=== PATIENT | female | born 1980 | race Caucasian/White ===

== ENCOUNTER 2017-02-13 13:52 | Emergency (ER) | payer BC ==
[2017-02-13] MEDS ORDERED: Ketorolac 60 MG/2 ML SDV IM ONE (14:34)
[2017-02-13] MEDS ORDERED: Gabapentin 300 MG Cap PO ONE (14:34)
[2017-02-13] MEDS ORDERED: fentaNYL 100 MCG/2 ML SDV IVPUSH ONE (16:17)
--- NOTE | 2017-02-13 16:23 | EDM.PDOC ---
ED HPI GENERAL MEDICAL PROBLEM - General Chief Complaint: Lower Extremity Injury/Pain Stated Complaint: LEFT HIP PAIN Time Seen by Provider: 02/13/17 14:30 Source of Information: Reports: Patient History Limitations: Reports: No Limitations - History of Present Illness INITIAL COMMENTS - FREE TEXT/NARRATIVE: History of present illness: [36-year-old female comes in complaining of left hip pain. Patient indicates she has had surgery on the left hip and has had subsequent giving out of this hip causing subsequent falls and pain] Review of systems: As per history of present illness and below otherwise all systems reviewed and negative. Past medical history: As per history of present illness and as reviewed below otherwise noncontributory. Surgical history: As per history of present illness and as reviewed below otherwise noncontributory. Social history: No reported history of drug or alcohol abuse. Family history: As per history of present illness and as reviewed below otherwise noncontributory. Physical exam: HEENT: Atraumatic, normocephalic, pupils reactive, negative for conjunctival pallor or scleral icterus, mucous membranes moist, throat clear, neck supple, nontender, trachea midline. Lungs: Clear to auscultation, breath sounds equal bilaterally, chest nontender. Heart: S1S2, regular, negative for clicks, rubs, or JVD. Abdomen: Soft, nondistended, nontender. Negative for masses or hepatosplenomegaly. Negative for costovertebral tenderness. Pelvis: Stable nontender. Genitourinary: Deferred. Rectal: Deferred. Extremities: Atraumatic, negative for cords or calf pain. Neurovascular unremarkable. Neuro: Awake, alert, oriented. Cranial nerves II through XII unremarkable. Cerebellum unremarkable. Motor and sensory unremarkable throughout. Exam nonfocal. Global assessment is benign save is noted in the subjective complaint of the history of present illness Diagnostics: [] Therapeutics: [Toradol, gabapentin, fentanyl] Impression: [Chronic hip pain with laxity and instability] Plan: [Follow-up with PCP] Definitive disposition and diagnosis as appropriate pending reevaluation and review of above. Left Hip Pain Score (Numeric/FACES): 10 Right Knee Pain Score (Numeric/FACES): 3 - Related Data Allergies Allergy/AdvReac Type Severity Reaction Status Date / Time hydrocodone Allergy Hives Verified 02/13/17 14:02 morphine AdvReac Itching Verified 02/13/17 14:02 Home Meds: Home Meds Citalopram [Citalopram HBr] 40 mg PO DAILY 08/02/15 [History] metFORMIN HCl [Metformin HCl ER] 750 mg PO BID 08/02/15 [History] Citalopram Hydrobromide [Celexa] 40 mg PO DAILY 10/10/15 [History] Past Medical History HEENT History: Reports: None Cardiovascular History: Reports: None Other Cardiovascular History: states she had a "hole in heart" repaired at age 8 Respiratory History: Reports: None Gastrointestinal History: Reports: None Genitourinary History: Reports: None 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, Musculoskeletal History: Reports: Arthritis, Fracture, Gout Other Musculoskeletal History: one episode of gout in ankles at age 14, fx in bilateral feet, right wrist and left collarbone Neurological History: Reports: None Psychiatric History: Reports: Anxiety, Depression Endocrine/Metabolic History: Reports: Diabetes, Type II, Obesity/BMI 30+ Hematologic History: Reports: None Immunologic History: Reports: None Oncologic (Cancer) History: Reports: None Dermatologic History: Reports: None - Infectious Disease History Infectious Disease History: Reports: Chicken Pox - Past Surgical History Head Surgeries/Procedures: Reports: None HEENT Surgical History: Reports: None Cardiovascular Surgical History: Reports: Other (See Below) Respiratory Surgical History: Reports: None GI Surgical History: Reports: Cholecystectomy Female Surgical History: Reports: Section Neurological Surgical History: Reports: None Musculoskeletal Surgical History: Reports: Other (See Below) Oncologic Surgical History: Reports: None Dermatological Surgical History: Reports: None Social & Family History - Family History Family Medical History: Noncontributory Endocrine/Metabolic: Reports: Diabetes, type II - Tobacco Use Smoking Status *Q: Current Every Day Smoker Years of Tobacco use: 17 Packs/Tins Daily: 0.5 - Caffeine Use Caffeine Use: Reports: Soda Caffeine Use Comment: 2drinks/day - Recreational Drug Use Recreational Drug Use: No Drug Use in Last 12 Months: No Review of Systems - Review of Systems Review Of Systems: See Below (See history of present illness) ED EXAM, GENERAL - Physical Exam Exam: See Below (See history of present illness) Course - Vital Signs Last Recorded V/S: Last Vital Signs Temp 36.6 C 02/13/17 13:57 Pulse 134 H 02/13/17 13:57 Resp 20 02/13/17 13:57 BP 140/97 H 02/13/17 13:57 Pulse Ox 99 02/13/17 13:57 - Orders/Labs/Meds Meds: Medications Discontinued Medications Generic Name Dose Route Start Last Admin Trade Name Nel PRN Reason Stop Dose Admin Gabapentin 300 mg 02/13/17 14:34 02/13/17 15:25 Neurontin PO 02/13/17 14:35 300 mg ONETIME ONE Administration Ketorolac Tromethamine 60 mg 02/13/17 14:34 02/13/17 15:08 Toradol IM 02/13/17 14:35 60 mg ONETIME ONE Administration Departure - Departure Time of Disposition: 16:26 Disposition: Home, Self-Care 01 Condition: Good Clinical Impression: Hip pain Qualifiers: Laterality: left Qualified Code(s): M25.552 - Pain in left hip - Discharge Information Instructions: Hip Pain Forms: ED Department Discharge Additional Instructions: The following information is given to patients seen in the emergency department who are being discharged to home. This information is to outline your options for follow-up care. We provide all patients seen in our emergency department with a follow-up referral. The need for follow-up, as well as the timing and circumstances, are variable depending upon the specifics of your emergency department visit. If you don't have a primary care physician on staff, we will provide you with a referral. We always advise you to contact your personal physician following an emergency department visit to inform them of the circumstance of the visit and for follow-up with them and/or the need for any referrals to a consulting specialist. The emergency department will also refer you to a specialist when appropriate. This referral assures that you have the opportunity for follow-up care with a specialist. All of these measure are taken in an effort to provide you with optimal care, which includes your follow-up. Under all circumstances we always encourage you to contact your private physician who remains a resource for coordinating your care. When calling for follow-up care, please make the office aware that this follow-up is from your recent emergency room visit. If for any reason you are refused follow-up, please contact the [facility] Emergency Department at and asked to speak to the emergency department charge nurse. Follow-up with PCP Return to ED as needed as discussed
[2017-02-13 16:53] VITALS: BP 130/90
== END 2017-02-13 16:51 | disposition home or self-care (01) ==
LOC: MW.ED 13:52
DX: M25.252 Flail joint, left hip (principal); M25.352 Other instability, left hip; E11.9 Type 2 diabetes mellitus without complications; E66.9 Obesity, unspecified; F17.210 Nicotine dependence, cigarettes, uncomplicated; Z88.5 Allergy status to narcotic agent; Z79.84 Long term (current) use of oral hypoglycemic drugs
CPT/HCPCS: 96372; 99283; A9270; J1885; J3010

== ENCOUNTER 2017-03-10 03:29 | Observation (INO) | payer BC ==
[2017-03-10] MEDS ORDERED: HYDROmorphone 2 MG/ML Syringe IVPUSH ONE ×2 (03:48→06:24)
[2017-03-10] MEDS ORDERED: Sodium Chloride 0.9% 10 ML Syringe FLUSH PRN (03:48)
[2017-03-10] MEDS ORDERED: Aspirin 81 MG Tab.Chew PO ONE (03:48)
[2017-03-10] MEDS ORDERED: Sodium Chloride 0.9% 2.5 ML Syringe FLUSH PRN (03:48)
[2017-03-10] MEDS ORDERED: Sodium Chloride 0.9% 1,000 ML IV ONE (03:48)
--- NOTE | 2017-03-10 03:55 | EDM.PDOC ---
ED HPI GENERAL MEDICAL PROBLEM - General Chief Complaint: Chest Pain Stated Complaint: CHEST PAIN Time Seen by Provider: 03/10/17 03:33 - History of Present Illness INITIAL COMMENTS - FREE TEXT/NARRATIVE: HISTORY AND PHYSICAL: History of present illness: The patient is a 36-year-old female with a history of [id number] diabetes and chronic hip pain for which she has seen our orthopedics department and is scheduled for a hip replacement in April and presents tonight with left lower chest wall and left upper abdominal pain that started approximately 8 hours ago. According to the patient she has felt poorly over the last few days and has had mushy diarrhea and abdominal discomfort but no vomiting fevers or chills. According to the patient's she has had one to 2 episodes of sharp left-sided chest pain over the last 4 years each time being evaluated in the ER with EKGs and labs but never getting follow-up testing for these episodes. Initially when she presented she told nursing was left-sided chest pain it was sharp worse with deep breaths or movements and on my evaluation she is pointing more to the left upper abdomen and lower rib area. The pain does not radiate and it does not make her nauseated or vomit. The Pain has been continuous for the last 8 hours. Patient has no flank pain no urinary complaints and denies . She has had no upper respiratory issues such as cough cold runny nose fevers or chills. Patient has had a cholecystectomy in the past and has no other GI history. Patient does have a history of anxiety for which she takes medications but states she does not feel anxious now. Throughout the course of the last 8 hours she has tried both [id number] Tylenol and Motrin without relief of the discomfort. She states that when the pain started she was at rest and has been persistent and she rates it as 8/10. The patient smokes cigarettes but has no other drug history and occasionally drinks alcohol. According to her testimony her mother had cardiac disease at the age of 50 and no other nuclear family members have cardiac disease. She has no leg pain or swelling. She does not take control pills. Patient tells me that she did have heart surgery at the age of 68 years old to repair a "hole in her heart". She did not need to have all of after that. Review of systems: As per history of present illness and below otherwise all systems reviewed and negative. Past medical history: As per history of present illness and as reviewed below otherwise noncontributory. Surgical history: As per history of present illness and as reviewed below otherwise noncontributory. Social history: No reported history of drug or alcohol abuse. Family history: As per history of present illness and as reviewed below otherwise noncontributory. Physical exam: Gen.: Well-developed mildly overweight female who is nontoxic and looks uncomfortable in the room he breaths and continues to keep her left hand on her left upper abdominal area. Vital signs of the note by me including her tachycardia. HEENT: Atraumatic, normocephalic, negative for conjunctival pallor or scleral icterus, mucous membranes moist, throat clear, neck supple, nontender, trachea midline. Lungs: Clear to auscultation, breath sounds equal bilaterally, chest wall in the left lower anterior side has reproducible pain on palpation without defects or deformities. There are no palpable deformities or defects/crepitus Heart: S1S2, regular rhythm slightly tachycardic rate of my evaluation, negative for clicks, rubs, or JVD. Abdomen: Soft, nondistended, bowel sounds are normoactive and there is mild tenderness on palpation in the left upper abdominal area without rebound or guarding. Negative for masses or hepatosplenomegaly. Negative for costovertebral tenderness. Pelvis: Stable nontender. Genitourinary: Deferred. Rectal: Deferred. Extremities: Atraumatic, negative for cords or calf pain. Neurovascular unremarkable. No pedal edema or leg asymmetry Neuro: Awake, alert, oriented. Cranial nerves II through XII unremarkable. Cerebellum unremarkable. Motor and sensory unremarkable throughout. Exam nonfocal. Skin: No diaphoresis normal turgor no evidence of any rashes or lesions Diagnostics: EKG CBC CMP amylase lipase INR and d-dimer troponin chest x-ray Therapeutics: IV O2 monitor IV fluids aspirin Nitropaste Dilaudid After my initial evaluation I went back before the patient was medicated to see if she can distinguish between the pain being in her left upper abdomen versus her chest wall and is still very difficult for her to discern as it feels like it's in the entire area. We will continue with our workup and reevaluate for CT scans of the chest abdomen and pelvis. 0425: Patient states that the pain is significantly improved and now rates it as a 4/10. Her heart rate has come down to 91 and she overall looks much more comfortable. Nitro paste will be placed and she will go to CT for CT scan of the chest abdomen and pelvis. 0620: Patient continues to be comfortable but still says she has some discomfort and feels that the Dilaudid was the only thing that helped her with her pain. I will go ahead and re-dose her. I discussed all testing results with the patient and at bedside and they are agreeable to observation admission to do the rule out for cardiac and potentially get an echocardiogram and scheduled for outpatient stress test. 0635: Case was discussed with our hospitalist Dr. Chapman who is aware of care in the ER and testing results and agrees to observation admission. Impression: Episodic atypical left chest pain etiology unclear rule out ACS Definitive disposition and diagnosis as appropriate pending reevaluation and review of above. Left Chest Pain Score (Numeric/FACES): 9 - Related Data Allergies Allergy/AdvReac Type Severity Reaction Status Date / Time hydrocodone Allergy Hives Verified 03/10/17 03:34 morphine AdvReac Itching Verified 03/10/17 03:34 Home Meds: Home Meds Citalopram [Citalopram HBr] 40 mg PO DAILY 08/02/15 [History] metFORMIN HCl [Metformin HCl ER] 1,500 mg PO BID 08/02/15 [History] ALPRAZolam [Alprazolam] 0.5 mg PO ASDIRECTED PRN 03/10/17 [History] oxyCODONE HCl/Acetaminophen [Percocet 5-325 mg Tablet] 1 each PO ASDIRECTED PRN 03/10/17 [History] Past Medical History HEENT History: Reports: None Cardiovascular History: Reports: None Other Cardiovascular History: states she had a "hole in heart" repaired at age 8 Respiratory History: Reports: None Gastrointestinal History: Reports: None Genitourinary History: Reports: None [employer]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: 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, Musculoskeletal History: Reports: Arthritis, Fracture, Gout Other Musculoskeletal History: one episode of gout in ankles at age 14, fx in bilateral feet, right wrist and left collarbone Neurological History: Reports: None Psychiatric History: Reports: Anxiety, Depression Endocrine/Metabolic History: Reports: Diabetes, Type II, Obesity/BMI 30+ Hematologic History: Reports: None Immunologic History: Reports: None Oncologic (Cancer) History: Reports: None Dermatologic History: Reports: None - Infectious Disease History Infectious Disease History: Reports: Chicken Pox - Past Surgical History Head Surgeries/Procedures: Reports: None HEENT Surgical History: Reports: None Cardiovascular Surgical History: Reports: Other (See Below) Respiratory Surgical History: Reports: None GI Surgical History: Reports: Cholecystectomy Female Surgical History: Reports: Section Neurological Surgical History: Reports: None Musculoskeletal Surgical History: Reports: Other (See Below) Oncologic Surgical History: Reports: None Dermatological Surgical History: Reports: None Social & Family History - Family History Family Medical History: Noncontributory Endocrine/Metabolic: Reports: Diabetes, type II - Tobacco Use Smoking Status *Q: Current Every Day Smoker Years of Tobacco use: 22 Packs/Tins Daily: 1 - Caffeine Use Caffeine Use: Reports: Soda Caffeine Use Comment: 2drinks/day - Recreational Drug Use Recreational Drug Use: No Drug Use in Last 12 Months: No ED ROS GENERAL - Review of Systems Review Of Systems: ROS reveals no pertinent complaints other than HPI. ED EXAM, GENERAL - Physical Exam Exam: See Below (See dictation) Course - Vital Signs Last Recorded V/S: Last Vital Signs Temp 35.7 C 03/10/17 03:30 Pulse 102 H 03/10/17 06:21 Resp 14 03/10/17 06:21 BP 151/93 H 03/10/17 06:21 Pulse Ox 98 03/10/17 06:21 - Orders/Labs/Meds Orders: Active Orders 24 hr Category Date Time Status Cardiac Monitoring [RC] . DIRECTED Care 03/10/17 03:47 Active EKG Documentation Completion [RC] STAT Care 03/10/17 03:47 Active Oxygen Therapy, ED [RC] ASDIRECTED Care 03/10/17 03:47 Active Pulse Oximetry [RC] ASDIRECTED Care 03/10/17 03:47 Active Abdomen Pelvis w Cont [CT] Stat Exams 03/10/17 04:24 Taken Ang Chest [CT] Stat Exams 03/10/17 04:24 Taken Chest 1V Frontal [CR] Stat Exams 03/10/17 03:48 Taken Sodium Chloride 0.9% [Saline Flush] Med 03/10/17 03:48 Active 10 ml FLUSH ASDIRECTED PRN Sodium Chloride 0.9% [Saline Flush] Med 03/10/17 03:48 Active 2.5 ml FLUSH ASDIRECTED PRN Saline Lock Insert [OM.PC] Stat Oth 03/10/17 03:47 Ordered Medication Orders Sodium Chloride (Saline Flush) 10 ml FLUSH ASDIRECTED PRN PRN Reason: Keep Vein Open Last Admin: 03/10/17 06:36 Dose: 10 ml Sodium Chloride (Saline Flush) 2.5 ml FLUSH ASDIRECTED PRN PRN Reason: Keep Vein Open Last Admin: 03/10/17 06:35 Dose: 2.5 ml Labs: Laboratory Tests 03/10/17 03/10/17 03/10/17 Range/Units 03:51 03:51 03:51 WBC 12.85 H (4.0-11.0) K/uL RBC 4.35 (4.30-5.90) M/uL Hgb 13.9 (12.0-16.0) g/dL Hct 40.7 (36.0-46.0) % MCV 93.6 (80.0-98.0) fL MCH 32.0 (27.0-32.0) pg MCHC 34.2 (31.0-37.0) g/dL RDW Std Deviation 45.8 (28.0-62.0) fl RDW Coeff of Mirlande 14 (11.0-15.0) % Plt Count 386 (150-400) K/uL MPV 8.20 (7.40-12.00) fL Neut % (Auto) 44.8 L (48.0-80.0) % Lymph % (Auto) 46.2 H (16.0-40.0) % Barrow % (Auto) 5.7 (0.0-15.0) % Eos % (Auto) 3.1 (0.0-7.0) % Baso % (Auto) 0.2 (0.0-1.5) % Neut # (Auto) 5.8 H (1.4-5.7) K/uL Lymph # (Auto) 5.9 H (0.6-2.4) K/uL Barrow # (Auto) 0.7 (0.0-0.8) K/uL Eos # (Auto) 0.4 (0.0-0.7) K/uL Baso # (Auto) 0.0 (0.0-0.1) K/uL Nucleated RBC % 0.0 /100WBC Nucleated RBCs # 0 K/uL INR 1.00 (0.86-1.11) D-Dimer, Quantitative (0.0-0.52) mg/LFEU Sodium 140 (136-146) mmol/L Potassium 3.7 (3.5-5.1) mmol/L Chloride 105 (98-110) mmol/L Carbon Dioxide 24 (21-31) mmol/L BUN 6 (6.0-23.0) mg/dL Creatinine 0.7 (0.6-1.5) mg/dL Est Cr Clr Drug Dosing 97.79 mL/min Estimated GFR (MDRD) > 60.0 ml/min Glucose 126 H (60-110) mg/dL Calcium 9.5 (8.8-10.8) mg/dL Total Bilirubin 0.3 (0.1-1.5) mg/dL AST 22 (5-40) IU/L ALT 31 (8-54) IU/L Alkaline Phosphatase 113 (40-150) Troponin I (0.0-0.29) NG/ML Total Protein 7.0 (6.0-8.0) g/dL Albumin 4.0 (3.5-5.0) g/dL Globulin 3.0 (2.0-3.5) g/dL Albumin/Globulin Ratio 1.3 (1.3-2.8) Amylase 56 (10-90) U/L Lipase 37 (7-80) U/L HCG, Qual (NEG) 03/10/17 03/10/17 03/10/17 Range/Units 03:51 03:51 03:51 WBC (4.0-11.0) K/uL RBC (4.30-5.90) M/uL Hgb (12.0-16.0) g/dL Hct (36.0-46.0) % MCV (80.0-98.0) fL MCH (27.0-32.0) pg MCHC (31.0-37.0) g/dL RDW Std Deviation (28.0-62.0) fl RDW Coeff of Mirlande (11.0-15.0) % Plt Count (150-400) K/uL MPV (7.40-12.00) fL Neut % (Auto) (48.0-80.0) % Lymph % (Auto) (16.0-40.0) % Barrow % (Auto) (0.0-15.0) % Eos % (Auto) (0.0-7.0) % Baso % (Auto) (0.0-1.5) % Neut # (Auto) (1.4-5.7) K/uL Lymph # (Auto) (0.6-2.4) K/uL Barrow # (Auto) (0.0-0.8) K/uL Eos # (Auto) (0.0-0.7) K/uL Baso # (Auto) (0.0-0.1) K/uL Nucleated RBC % /100WBC Nucleated RBCs # K/uL INR (0.86-1.11) D-Dimer, Quantitative < 0.19 (0.0-0.52) mg/LFEU Sodium (136-146) mmol/L Potassium (3.5-5.1) mmol/L Chloride (98-110) mmol/L Carbon Dioxide (21-31) mmol/L BUN (6.0-23.0) mg/dL Creatinine (0.6-1.5) mg/dL Est Cr Clr Drug Dosing mL/min Estimated GFR (MDRD) ml/min Glucose (60-110) mg/dL Calcium (8.8-10.8) mg/dL Total Bilirubin (0.1-1.5) mg/dL AST (5-40) IU/L ALT (8-54) IU/L Alkaline Phosphatase (40-150) Troponin I < 0.10 (0.0-0.29) NG/ML Total Protein (6.0-8.0) g/dL Albumin (3.5-5.0) g/dL Globulin (2.0-3.5) g/dL Albumin/Globulin Ratio (1.3-2.8) Amylase (10-90) U/L Lipase (7-80) U/L HCG, Qual NEGATIVE (NEG) Meds: Medications Generic Name Dose Route Start Last Admin Trade Name Freq PRN Reason Stop Dose Admin Sodium Chloride 10 ml 03/10/17 03:48 03/10/17 06:36 Saline Flush FLUSH 10 ml ASDIRECTED PRN Administration Keep Vein Open Sodium Chloride 2.5 ml 03/10/17 03:48 03/10/17 06:35 Saline Flush FLUSH 2.5 ml ASDIRECTED PRN Administration Keep Vein Open Discontinued Medications Generic Name Dose Route Start Last Admin Trade Name Freq PRN Reason Stop Dose Admin Aspirin 324 mg 03/10/17 03:48 03/10/17 04:04 Aspirin PO 03/10/17 03:49 324 mg ONETIME ONE Administration Hydromorphone HCl 1 mg 03/10/17 03:48 03/10/17 04:04 Dilaudid IVPUSH 03/10/17 03:49 1 mg ONETIME ONE Administration Hydromorphone HCl 1 mg 03/10/17 06:24 03/10/17 06:34 Dilaudid IVPUSH 03/10/17 06:25 1 mg ONETIME ONE Administration Sodium Chloride 1,000 mls @ 999 mls/hr 03/10/17 03:48 03/10/17 04:03 Normal Saline IV 03/10/17 04:48 999 mls/hr STAT ONE Administration Iopamidol 75 ml 03/10/17 04:38 03/10/17 05:20 Isovue Multipack-370 (76%) IVPUSH 03/10/17 04:39 75 ml ONETIME STA Administration Nitroglycerin 0.5 gm 03/10/17 04:21 03/10/17 04:26 Nitro-Bid 2% TOP 03/10/17 04:22 0.5 gm ONETIME ONE Administration Departure - Departure Time of Disposition: 06:42 Disposition: Refer to Observation Condition: Good Clinical Impression: Atypical chest pain - Discharge Information Referrals: PCP,None [Primary Care Provider] - Forms: ED Department Discharge - My Orders Last 24 Hours: My Active Orders 03/10/17 03:47 Cardiac Monitoring [RC] . DIRECTED EKG Documentation Completion [RC] STAT Oxygen Therapy, ED [RC] ASDIRECTED Pulse Oximetry [RC] ASDIRECTED Saline Lock Insert [OM.PC] Stat 03/10/17 03:48 Chest 1V Frontal [CR] Stat Sodium Chloride 0.9% [Saline Flush] 10 ml FLUSH ASDIRECTED PRN Sodium Chloride 0.9% [Saline Flush] 2.5 ml FLUSH ASDIRECTED PRN 03/10/17 04:24 Abdomen Pelvis w Cont [CT] Stat Ang Chest [CT] Stat - Assessment/Plan Last 24 Hours: My Active Orders 03/10/17 03:47 Cardiac Monitoring [RC] . DIRECTED EKG Documentation Completion [RC] STAT Oxygen Therapy, ED [RC] ASDIRECTED Pulse Oximetry [RC] ASDIRECTED Saline Lock Insert [OM.PC] Stat 03/10/17 03:48 Chest 1V Frontal [CR] Stat Sodium Chloride 0.9% [Saline Flush] 10 ml FLUSH ASDIRECTED PRN Sodium Chloride 0.9% [Saline Flush] 2.5 ml FLUSH ASDIRECTED PRN 03/10/17 04:24 Abdomen Pelvis w Cont [CT] Stat Ang Chest [CT] Stat
[2017-03-10] MEDS ORDERED: Nitroglycerin 2% Oint 1 GM UD Packet TOP ONE (04:21)
[2017-03-10 04:23] LABS: CHLORIDE,CL 105 mmol/L (98-110); SODIUM,NA 140 mmol/L (136-146)
[2017-03-10] MEDS ORDERED: Iopamidol 755 MG/ML 500 ML Multipack Bottle IVPUSH STA (04:38)
--- NOTE | 2017-03-10 07:52 | PCM.HP ---
H&P History of Present Illness - General Date of Service: 03/10/17 Admit Problem/Dx: Admission Diagnosis/Problem Admission Diagnosis/Problem Chest pain - History of Present Illness Initial Comments - Free Text/Narative: 36 yo female admitted for r/o ACS. She was experiencing left sided chest and abdominal pain last night that was intolerable along with n/v. She did have a URI last week with mild diarrhea. She has history of type 2 DM, hyperlipidemia, Chronic hip surgery scheduled 05/01 this year. She has been taking ibuprofen for her hip pain. She smokes cigarettes, socially drinks, and does not use illicit drugs. She has been having chest pain x5 since 2003. She recently had endoscopy and did not reveal any pathology. She did not have outpatient stress test. In the ED, EKG shows sinus tachycardia, no acute ST or T wave changes. CXR negative. CHest CT angio negtive for pulmonary embolus. Troponin x 1 negative. D-dimer negative. She states she has significant cardiac history from mom side. Left Chest Pain Score (Numeric/FACES): 7 Left Lower Chest Pain Score (Numeric/FACES): 8 - Related Data Allergies/Adverse Reactions: Allergies Allergy/AdvReac Type Severity Reaction Status Date / Time hydrocodone Allergy Hives Verified 03/10/17 03:34 morphine AdvReac Itching Verified 03/10/17 03:34 Home Medications: Home Meds Citalopram [Citalopram HBr] 40 mg PO DAILY 08/02/15 [History] metFORMIN HCl [Metformin HCl ER] 1,500 mg PO DAILY 08/02/15 [History] ALPRAZolam [Alprazolam] 0.5 mg PO BID PRN 03/10/17 [History] Simvastatin [Zocor] 20 mg PO BEDTIME 03/10/17 [History] oxyCODONE HCl/Acetaminophen [Percocet 5-325 mg Tablet] 5 - 325 mg PO Q4H PRN [History] Past Medical History HEENT History: Reports: None Cardiovascular History: Reports: None Other Cardiovascular History: states she had a "hole in heart" repaired at age 8 Respiratory History: Reports: None Gastrointestinal History: Reports: None Genitourinary History: Reports: None [employer] WORKER History: Reports: 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, Musculoskeletal History: Reports: Arthritis, Fracture, Gout Other Musculoskeletal History: one episode of gout in ankles at age 14, fx in bilateral feet, right wrist and left collarbone Neurological History: Reports: None Psychiatric History: Reports: Anxiety, Depression Endocrine/Metabolic History: Reports: Diabetes, Type II, Obesity/BMI 30+ Hematologic History: Reports: None Immunologic History: Reports: None Oncologic (Cancer) History: Reports: None Dermatologic History: Reports: None - Infectious Disease History Infectious Disease History: Reports: Chicken Pox - Past Surgical History Head Surgeries/Procedures: Reports: None HEENT Surgical History: Reports: None Cardiovascular Surgical History: Reports: Other (See Below) Respiratory Surgical History: Reports: None GI Surgical History: Reports: Cholecystectomy Female Surgical History: Reports: Section Neurological Surgical History: Reports: None Musculoskeletal Surgical History: Reports: Other (See Below) Oncologic Surgical History: Reports: None Dermatological Surgical History: Reports: None Social & Family History - Family History Family Medical History: Noncontributory Endocrine/Metabolic: Reports: Diabetes, type II - Tobacco Use Smoking Status *Q: Current Every Day Smoker Years of Tobacco use: 22 Packs/Tins Daily: 1 - Caffeine Use Caffeine Use: Reports: Soda Caffeine Use Comment: 2drinks/day - Recreational Drug Use Recreational Drug Use: No Drug Use in Last 12 Months: No H&P Review of Systems - Review of Systems: Review Of Systems: See Below General: Reports: No Symptoms HEENT: Reports: No Symptoms Pulmonary: Reports: No Symptoms Cardiovascular: Reports: No Symptoms, Chest Pain Gastrointestinal: Reports: No Symptoms, Abdominal Pain Genitourinary: Reports: No Symptoms Exam - Exam Exam: See Below - Vital Signs Vital Signs: Last Vital Signs Temp 96.9 F 03/10/17 07:32 Pulse 101 H 03/10/17 07:32 Resp 19 03/10/17 07:32 BP 153/97 H 03/10/17 07:32 Pulse Ox 98 03/10/17 07:32 Weight: 105.6 kg - Exam General: Alert, Oriented HEENT: Conjunctiva Clear, EOMI Lungs: Clear to Auscultation, Normal Respiratory Effort, Other (palpable cp) Cardiovascular: Regular Rate, Regular Rhythm GI/Abdominal Exam: Normal Bowel Sounds, Tender. No: Guarding, Rigid Rectal (Female) Exam: Normal Exam, Normal Rectal Tone, Other Back Exam: Normal Inspection Extremities: Normal Inspection - Patient Data Result Diagrams: 03/10/17 03:51 03/10/17 03:51 *Q Meaningful Use (ADM) - VTE *Q VTE Criteria *Q: - Stroke *Q Stroke Criteria *Q: - AMI *Q AMI Criteria *Q: Problem List Initiated/Reviewed/Updated: Yes Orders Last 24hrs: Medication Orders Sodium Chloride (Saline Flush) 10 ml FLUSH ASDIRECTED PRN PRN Reason: Keep Vein Open Last Admin: 03/10/17 06:36 Dose: 10 ml Sodium Chloride (Saline Flush) 2.5 ml FLUSH ASDIRECTED PRN PRN Reason: Keep Vein Open Last Admin: 03/10/17 06:35 Dose: 2.5 ml Assessment/Plan Comment:: 36 yo female admitted for r/o ACS. trend troponin x3 Abdominal pain: most likely gastritis. I attempted hemoccult. He rectal vault empty of stool. Rn to collect stool and send for hemocult. on protonix. pain control: diluadid and percocet prn.
[2017-03-10] MEDS ORDERED: Ondansetron 4 MG/2 ML SDV IVPUSH PRN (08:15)
[2017-03-10] MEDS ORDERED: Morphine 2 MG/ML Syringe IVPUSH PRN (08:15)
[2017-03-10] MEDS ORDERED: ALPRAZolam 0.5 MG Tab PO PRN (08:32)
[2017-03-10] MEDS ORDERED: Citalopram 20 MG Tab PO SCH ×2 (09:00→21:00)
[2017-03-10] MEDS ORDERED: metFORMIN 500 MG Tab.ER PO SCH (09:00)
[2017-03-10] MEDS: HYDROmorphone 1 MG/ML Syringe IVPUSH PRN ×6 (09:33→23:37)
[2017-03-10] MEDS: Enoxaparin 40 MG/0.4 ML Syringe SUBCUT SCH (09:40)
--- NOTE | 2017-03-10 09:45 | CR ---
EXAM DATE: 03/10/17 PATIENT'S AGE: 36 Patient: SINGH GERONIMO Facility: [place], [place] Site . Site : 1980 Study: XRay Chest [id number]/27/2017 4:28:04 AM Ordering Physician: Jonny Cali Final Report: INDICATIONS: Pain. Shortness of breath. TECHNIQUE: Chest 1 view. COMPARISON: None FINDINGS: No pneumothorax, pleural effusion or airspace consolidation. Cardiac and mediastinal contours are within normal limits. Upper abdomen and osseous structures show no acute abnormality. IMPRESSION: No evidence of acute cardiopulmonary disease. Dictated by Perico Chappell MD @ 03/10/2017 4:31:37 AM Dictated by: Perico Chappell MD @ 03/10/2017 04:31:42 (Electronic Signature) Report Signed by Proxy. [facility]
--- NOTE | 2017-03-10 09:46 | CT ---
EXAM DATE: 03/10/17 PATIENT'S AGE: 36 Patient: SINGH GERONIMO Facility: [place], [place] Site Site : 1980 Study: CT Chest/Abd/Pelvis Chest Angio-03/10/2017 5:42:53 AM Ordering Physician: Jonny Cali Final Report: INDICATION: Chest pain. Abdominal pain. TECHNIQUE: CT chest, abdomen and pelvis acquired with 75 mL of Isovue [address] chest performed per PE protocol. COMPARISON: None. FINDINGS: Chest: Cardiovascular structures: Within the limitations of suboptimal pulmonary artery opacification, there is no evidence of pulmonary embolus. The thoracic aorta is normal in caliber. Heart size is within normal limits. Low attenuation collection along the right cardiac border measures 5.5 x 1.6 cm on axial image 318 of series 401. Mediastinum and jenny: No mass or adenopathy. Lungs: And axis. Central airways are patent. There are subtle bilateral ground- glass opacities. Mild motion artifact present. The lungs are otherwise clear. Pleura and pericardium: No effusions. Chest wall and axilla: No mass or adenopathy. . Abdomen and Pelvis: Liver: Unremarkable. Spleen: Unremarkable. Pancreas: Unremarkable. Gallbladder and bile ducts: Cholecystectomy. Kidneys: Unremarkable. Adrenal glands: Unremarkable. GI tract: No obstruction or focal inflammatory changes. The appendix is normal in appearance. No free air or free fluid. Vascular structures: Unremarkable. Lymph nodes: Unremarkable. Pelvic Organs: Unremarkable. Bones: No acute abnormality. IMPRESSION: Within the limitations of suboptimal pulmonary artery opacification, there is no evidence of pulmonary embolus. Subtle bilateral ground-glass opacities likely represent subsegmental atelectasis. Oval collection adjacent to the right heart border likely represents a small pericardial cyst and may be of no clinical significance. No acute intra-abdominal or pelvic abnormality. Dictated by Perico Chappell MD @ 03/10/2017 6:10:45 AM Dictated by: Perico Chappell MD @ 03/10/2017 06:11:25 (Electronic Signature) Report Signed by Proxy. [facility]
--- NOTE | 2017-03-10 09:46 | CT ---
EXAM DATE: 03/10/17 PATIENT'S AGE: 36 Patient: SINGH GERONIMO Facility: [place], [place] Site Site : 1980 Study: CT Chest/Abd/Pelvis Chest Angio-03/10/2017 5:42:53 AM Ordering Physician: Jonny Cali Final Report: INDICATION: Chest pain. Abdominal pain. TECHNIQUE: CT chest, abdomen and pelvis acquired with 75 mL of Isovue [address] chest performed per PE protocol. COMPARISON: None. FINDINGS: Chest: Cardiovascular structures: Within the limitations of suboptimal pulmonary artery opacification, there is no evidence of pulmonary embolus. The thoracic aorta is normal in caliber. Heart size is within normal limits. Low attenuation collection along the right cardiac border measures 5.5 x 1.6 cm on axial image 318 of series 401. Mediastinum and jenny: No mass or adenopathy. Lungs: And axis. Central airways are patent. There are subtle bilateral ground- glass opacities. Mild motion artifact present. The lungs are otherwise clear. Pleura and pericardium: No effusions. Chest wall and axilla: No mass or adenopathy. . Abdomen and Pelvis: Liver: Unremarkable. Spleen: Unremarkable. Pancreas: Unremarkable. Gallbladder and bile ducts: Cholecystectomy. Kidneys: Unremarkable. Adrenal glands: Unremarkable. GI tract: No obstruction or focal inflammatory changes. The appendix is normal in appearance. No free air or free fluid. Vascular structures: Unremarkable. Lymph nodes: Unremarkable. Pelvic Organs: Unremarkable. Bones: No acute abnormality. IMPRESSION: Within the limitations of suboptimal pulmonary artery opacification, there is no evidence of pulmonary embolus. Subtle bilateral ground-glass opacities likely represent subsegmental atelectasis. Oval collection adjacent to the right heart border likely represents a small pericardial cyst and may be of no clinical significance. No acute intra-abdominal or pelvic abnormality. Dictated by Perico Chappell MD @ 03/10/2017 6:10:45 AM Dictated by: Perico Chappell MD @ 03/10/2017 06:11:25 (Electronic Signature) Report Signed by Proxy. [facility]
[2017-03-10] MEDS: Acetaminophen/oxyCODONE 325-5 MG Tab PO PRN (14:26)
[2017-03-10] MEDS: Pantoprazole 40 MG Tab.CR PO SCH (15:52)
[2017-03-10] MEDS: Insulin Aspart 100 Units/ML 3 ML Pen SUBCUT SCH ×2 (18:06→21:19)
[2017-03-10] MEDS ORDERED: Simvastatin 20 MG Tab PO SCH (21:00)
[2017-03-10] MEDS ORDERED: Insulin Aspart 100 Units/ML 3 ML Pen SUBCUT SCH (21:00)
[2017-03-11] MEDS: HYDROmorphone 1 MG/ML Syringe IVPUSH PRN ×4 (02:54→11:17)
[2017-03-11] MEDS: Acetaminophen/oxyCODONE 325-5 MG Tab PO PRN ×2 (03:40→12:56)
[2017-03-11 05:35] LABS: CHLORIDE,CL 106 mmol/L (98-110); SODIUM,NA 138 mmol/L (136-146)
[2017-03-11] MEDS: Insulin Aspart 100 Units/ML 3 ML Pen SUBCUT SCH ×2 (06:30→12:58)
[2017-03-11] MEDS: Pantoprazole 40 MG Tab.CR PO SCH (08:48)
[2017-03-11] MEDS: Enoxaparin 40 MG/0.4 ML Syringe SUBCUT SCH (08:48)
[2017-03-11 11:25] VITALS: BP 155/92
--- NOTE | 2017-03-11 12:39 | PCM.DCSUM1 ---
Discharge Summary - Hospital Course Free Text/Narrative:: 36 yo with DM2 female admitted for r/o ACS. She was experiencing intense left sided chest and abdominal pain that was unremitting with diarrhea x 1. CBC, bmp , d-dimer, cxr, chest angio negative. Her troponin x 3 negative. She improved with diluadid and protonix. Upon further history she has been taking excessive amount of ibuprofen for her l hip pain which she has surgery scheduled in April this year. She had 5 episodes of chest pain since 2003. I attempted to perform hemoccult since she stated her stools were dark. I was unable to obtain a sample since she had no stool in the rectum. I ordered stool hemoccult. She was unable to provide a sample since she did not have a bowel movement. She did have upper endoscopy last year in [place]. where there was no ulcer or gastritis. She had cholecystemtomy 12/30/2016.She is to follow up with her PCP for exercise stress test. - Discharge Data Discharge Date: 03/11/17 Discharge Disposition: Home, Self-Care 01 Condition: Good - Patient Instructions Diet: Diabetic Diet Activity: As Tolerated Driving: Do Not Drive Showering/Bathing: December Shower Notify Provider of: Fever, Increased Pain, Swelling and Redness, Drainage, Nausea and/or Vomiting - Discharge Plan Prescriptions/Med Rec: Pantoprazole [ProTONIX] 40 mg PO DAILY #30 tab.cr Home Medications: Home Meds Citalopram [Citalopram HBr] 40 mg PO DAILY 08/02/15 [History] metFORMIN HCl [Metformin HCl ER] 1,500 mg PO DAILY 08/02/15 [History] ALPRAZolam [Alprazolam] 0.5 mg PO BID PRN 03/10/17 [History] Simvastatin [Zocor] 20 mg PO BEDTIME 03/10/17 [History] oxyCODONE HCl/Acetaminophen [Percocet 5-325 mg Tablet] 5 - 325 mg PO Q4H PRN [History] Pantoprazole [ProTONIX] 40 mg PO DAILY #30 tab.cr 03/11/17 [Rx] Patient Handouts: Chest Wall Pain, [id number], Pantoprazole tablets Referrals: Adriana Still PA [Physician [employer] Mechanic] - 03/15/17 3:15 pm - General Info Date of Service: 03/11/17 Functional Status: Reports: Pain Controlled - Review of Systems General: Reports: No Symptoms HEENT: Reports: No Symptoms Pulmonary: Reports: No Symptoms Cardiovascular: Reports: No Symptoms Gastrointestinal: Reports: No Symptoms, Abdominal Pain Genitourinary: Reports: No Symptoms Musculoskeletal: Reports: No Symptoms Skin: Reports: No Symptoms Neurological: Reports: No Symptoms Psychiatric: Reports: No Symptoms - Patient Data Vitals - Most Recent: Last Vital Signs Temp 97 F 03/11/17 11:21 Pulse 89 03/11/17 07:57 Resp 16 03/11/17 11:21 BP 155/92 H 03/11/17 11:21 Pulse Ox 95 03/11/17 11:21 Weight - Most Recent: 105.6 kg I&O - Last 24 hours: Intake & Output 03/10/17 03/11/17 03/11/17 22:59 06:59 14:59 Intake Total 1010 1340 Output Total 1050 1050 Balance -40 290 Lab Results - Last 24 hrs: Laboratory Results - last 24 hr 03/10/17 03/10/17 03/10/17 Range/Units 17:13 17:59 21:11 WBC (4.0-11.0) K/uL RBC (4.30-5.90) M/uL Hgb (12.0-16.0) g/dL Hct (36.0-46.0) % MCV (80.0-98.0) fL MCH (27.0-32.0) pg MCHC (31.0-37.0) g/dL RDW Std Deviation (28.0-62.0) fl RDW Coeff of Mirlande (11.0-15.0) % Plt Count (150-400) K/uL MPV (7.40-12.00) fL Neut % (Auto) (48.0-80.0) % Lymph % (Auto) (16.0-40.0) % Duval % (Auto) (0.0-15.0) % Eos % (Auto) (0.0-7.0) % Baso % (Auto) (0.0-1.5) % Neut # (Auto) (1.4-5.7) K/uL Lymph # (Auto) (0.6-2.4) K/uL Duval # (Auto) (0.0-0.8) K/uL Eos # (Auto) (0.0-0.7) K/uL Baso # (Auto) (0.0-0.1) K/uL Nucleated RBC % /100WBC Nucleated RBCs # K/uL Sodium (136-146) mmol/L Potassium (3.5-5.1) mmol/L Chloride (98-110) mmol/L Carbon Dioxide (21-31) mmol/L BUN (6.0-23.0) mg/dL Creatinine (0.6-1.5) mg/dL Est Cr Clr Drug Dosing mL/min Estimated GFR (MDRD) ml/min Glucose (60-110) mg/dL POC Glucose 133 H 178 H (60-110) mg/dL Calcium (8.8-10.8) mg/dL Troponin I < 0.10 (0.0-0.29) NG/ML 03/11/17 03/11/17 03/11/17 Range/Units 04:53 04:53 06:27 WBC 11.07 H (4.0-11.0) K/uL RBC 3.99 L (4.30-5.90) M/uL Hgb 12.1 (12.0-16.0) g/dL Hct 37.9 (36.0-46.0) % MCV 95.0 (80.0-98.0) fL MCH 30.3 (27.0-32.0) pg MCHC 31.9 (31.0-37.0) g/dL RDW Std Deviation 46.7 (28.0-62.0) fl RDW Coeff of Mirlande 14 (11.0-15.0) % Plt Count 343 (150-400) K/uL MPV 8.20 (7.40-12.00) fL Neut % (Auto) 49.3 (48.0-80.0) % Lymph % (Auto) 38.2 (16.0-40.0) % Duval % (Auto) 7.3 (0.0-15.0) % Eos % (Auto) 4.8 (0.0-7.0) % Baso % (Auto) 0.4 (0.0-1.5) % Neut # (Auto) 5.5 (1.4-5.7) K/uL Lymph # (Auto) 4.2 H (0.6-2.4) K/uL Duval # (Auto) 0.8 (0.0-0.8) K/uL Eos # (Auto) 0.5 (0.0-0.7) K/uL Baso # (Auto) 0.0 (0.0-0.1) K/uL Nucleated RBC % 0.0 /100WBC Nucleated RBCs # 0 K/uL Sodium 138 (136-146) mmol/L Potassium 4.4 (3.5-5.1) mmol/L Chloride 106 (98-110) mmol/L Carbon Dioxide 24 (21-31) mmol/L BUN 10 (6.0-23.0) mg/dL Creatinine 0.7 (0.6-1.5) mg/dL Est Cr Clr Drug Dosing 106.01 mL/min Estimated GFR (MDRD) > 60.0 ml/min Glucose 136 H (60-110) mg/dL POC Glucose 130 H (60-110) mg/dL Calcium 9.1 (8.8-10.8) mg/dL Troponin I (0.0-0.29) NG/ML 03/11/ Range/Units 11:06 WBC (4.0-11.0) K/uL RBC (4.30-5.90) M/uL Hgb (12.0-16.0) g/dL Hct (36.0-46.0) % MCV (80.0-98.0) fL MCH (27.0-32.0) pg MCHC (31.0-37.0) g/dL RDW Std Deviation (28.0-62.0) fl RDW Coeff of Mirlande (11.0-15.0) % Plt Count (150-400) K/uL MPV (7.40-12.00) fL Neut % (Auto) (48.0-80.0) % Lymph % (Auto) (16.0-40.0) % Duval % (Auto) (0.0-15.0) % Eos % (Auto) (0.0-7.0) % Baso % (Auto) (0.0-1.5) % Neut # (Auto) (1.4-5.7) K/uL Lymph # (Auto) (0.6-2.4) K/uL Duval # (Auto) (0.0-0.8) K/uL Eos # (Auto) (0.0-0.7) K/uL Baso # (Auto) (0.0-0.1) K/uL Nucleated RBC % /100WBC Nucleated RBCs # K/uL Sodium (136-146) mmol/L Potassium (3.5-5.1) mmol/L Chloride (98-110) mmol/L Carbon Dioxide (21-31) mmol/L BUN (6.0-23.0) mg/dL Creatinine (0.6-1.5) mg/dL Est Cr Clr Drug Dosing mL/min Estimated GFR (MDRD) ml/min Glucose (60-110) mg/dL POC Glucose 128 H (60-110) mg/dL Calcium (8.8-10.8) mg/dL Troponin I (0.0-0.29) NG/ML Med Orders - Current: Current Medications Alprazolam (Xanax) 0.5 mg PO BID PRN PRN Reason: Anxiety Citalopram Hydrobromide (Celexa) 40 mg PO BEDTIME [facility] Last Admin: 03/10/17 21:19 Dose: 40 mg Enoxaparin Sodium (Lovenox) 40 mg SUBCUT DAILY [facility] Last Admin: 03/11/17 08:48 Dose: 40 mg Hydromorphone HCl (Dilaudid) 1 mg IVPUSH Q2H PRN PRN Reason: Pain Last Admin: 03/11/17 11:17 Dose: 1 mg Insulin Aspart (Novolog) 0 unit SUBCUT ACBED [facility] PRN Reason: Protocol Last Admin: 03/11/17 06:30 Dose: Not Given Ondansetron HCl (Zofran) 4 mg IVPUSH Q4H PRN PRN Reason: Nausea/Vomiting Oxycodone/Acetaminophen (Percocet 325-5 Mg) 0 tab PO Q6H PRN PRN Reason: Pain Last Admin: 03/11/17 03:40 Dose: 2 tab Pantoprazole Sodium (Protonix) 40 mg PO DAILY [facility] Last Admin: 03/11/17 08:48 Dose: 40 mg Simvastatin (Zocor) 20 mg PO BEDTIME [facility] Last Admin: 03/10/17 21:19 Dose: 20 mg Sodium Chloride (Saline Flush) 10 ml FLUSH ASDIRECTED PRN PRN Reason: Keep Vein Open Last Admin: 03/10/17 06:36 Dose: 10 ml Sodium Chloride (Saline Flush) 2.5 ml FLUSH ASDIRECTED PRN PRN Reason: Keep Vein Open Last Admin: 03/10/17 06:35 Dose: 2.5 ml Discontinued Medications Aspirin (Aspirin) 324 mg PO ONETIME ONE Stop: 03/10/17 03:49 Last Admin: 03/10/17 04:04 Dose: 324 mg Citalopram Hydrobromide (Celexa) 40 mg PO DAILY [facility] Last Admin: 03/10/17 11:09 Dose: Not Given Hydromorphone HCl (Dilaudid) 1 mg IVPUSH ONETIME ONE Stop: 03/10/17 03:49 Last Admin: 03/10/17 04:04 Dose: 1 mg Hydromorphone HCl (Dilaudid) 1 mg IVPUSH ONETIME ONE Stop: 03/10/17 06:25 Last Admin: 03/10/17 06:34 Dose: 1 mg Hydromorphone HCl (Dilaudid) 1 mg IVPUSH Q4H PRN PRN Reason: Pain Last Admin: 03/10/17 13:33 Dose: 1 mg Sodium Chloride (Normal Saline) 1,000 mls @ 999 mls/hr IV STAT ONE Stop: 03/10/17 04:48 Last Admin: 03/10/17 04:03 Dose: 999 mls/hr Insulin Aspart (Novolog) 0 unit SUBCUT ACBREAKFASTANDBED [facility] PRN Reason: Protocol Iopamidol (Isovue Multipack-370 (76%)) 75 ml IVPUSH ONETIME STA Stop: 03/10/17 04:39 Last Admin: 03/10/17 05:20 Dose: 75 ml Metformin HCl (Glucophage Xr) 1,500 mg PO DAILY [facility] Last Admin: 03/10/17 11:09 Dose: Not Given Morphine Sulfate (Morphine) 2 mg IVPUSH Q2H PRN PRN Reason: Pain (severe 7-10) Stop: 03/11/17 08:17 Nitroglycerin (Nitro-Bid 2%) 0.5 gm TOP ONETIME ONE Stop: 03/10/17 04:22 Last Admin: 03/10/17 04:26 Dose: 0.5 gm - Exam General: Reports: Alert, Oriented HEENT: Reports: Pupils Equal, EOMI Neck: Reports: Supple Lungs: Reports: Clear to Auscultation, Normal Respiratory Effort Cardiovascular: Reports: Regular Rate, Regular Rhythm GI/Abdominal Exam: Normal Bowel Sounds, Soft Back Exam: Reports: Normal Inspection, Full Range of Motion Extremities: Normal Inspection Skin: Reports: Warm, Dry, Intact Neurological: Reports: No New Focal Deficit Psy/Mental Status: Reports: Alert, Normal Affect *Q Meaningful Use (DIS) - VTE *Q VTE Criteria *Q: - Stroke *Q Stroke Criteria *Q: - AMI *Q AMI Criteria *Q:
== END 2017-03-11 12:56 | disposition home or self-care (01) ==
LOC: MW.ED 03:29 → MW.MS 06:42 → UNDOADMOB 06:42
PROVIDERS: ADMIT Internal Medicine; ATTEND Internal Medicine
DX: R07.9 Chest pain, unspecified (principal); R10.9 Unspecified abdominal pain; M10.9 Gout, unspecified; F41.9 Anxiety disorder, unspecified; F32.9 Major depressive disorder, single episode, unspecified; E11.9 Type 2 diabetes mellitus without complications; F17.210 Nicotine dependence, cigarettes, uncomplicated; Z88.5 Allergy status to narcotic agent; Z79.84 Long term (current) use of oral hypoglycemic drugs; Z79.899 Other long term (current) drug therapy; M19.90 Unspecified osteoarthritis, unspecified site; Z90.49 Acquired absence of other specified parts of digestive tract; Z98.890 Other specified postprocedural states
CPT/HCPCS: 36415; 71010; 71275; 74177; 80048; 80053; 81001; 82150; 82962; 83690; 84484; 84703; 85025; 85379; 85610; 93005; 96361; 96372; 96374; 96376; 99285; A9270; G0378; J1170; J1650; J1815; J7040; Q9967; 82272; 99284

== ENCOUNTER 2017-03-12 11:12 | Emergency (ER) | payer BC ==
[2017-03-12] MEDS ORDERED: Aspirin 81 MG Tab.Chew PO ONE (11:39)
[2017-03-12] MEDS ORDERED: Sodium Chloride 0.9% 1,000 ML IV SCH (11:45)
[2017-03-12] MEDS ORDERED: LORazepam 2 MG/ML MDV IVPUSH ONE (11:56)
[2017-03-12 12:10] LABS: CHLORIDE,CL 103 mmol/L (98-110); SODIUM,NA 139 mmol/L (136-146)
--- NOTE | 2017-03-12 12:11 | EDM.PDOC ---
ED HPI GENERAL MEDICAL PROBLEM - General Chief Complaint: Chest Pain Stated Complaint: CHEST & ABD PAIN Time Seen by Provider: 03/12/17 11:17 Source of Information: Reports: Patient History Limitations: Reports: No Limitations - History of Present Illness INITIAL COMMENTS - FREE TEXT/NARRATIVE: HISTORY AND PHYSICAL: History of present illness: 36-year-old female with a history of 6 episodes of noncardiac chest pain since 2003 including an admission for cardiac workup with discharge home yesterday from this hospital. She now presents to the emergency department complaining of the same left-sided chest pain worse with breathing that she has had recently and for which she was admitted 2 days ago. She denies productive cough or fever. She denies exertional chest pain or exertional symptoms of any kind. Patient has had vomiting and diarrhea for several days including during her admission. She had a very extensive workup including negative d-dimer and CTA of the chest which was negative however with limited pulmonary artery opacification. her cardiac workup was negative and a CT of abdomen and pelvis was unremarkable as well. Patient states her pain is worse with movement and deep inspiration. She has no history of blood clot or hypercoagulability and she is not on control. No leg swelling or calf pain. No prior history of DVT. Patient takes Motrin frequently for her chronic hip pain for which she has an upcoming surgery scheduled in April. It was presumed that the etiology of her discomfort was gastrointestinal / gastritis. Incidentally the patient has previously had an upper GI done in [place] which did not show any evidence of peptic ulcer disease or other abnormality. She has previously had her gallbladder out. Symptoms have not changed at all since prior to her admission days ago. No fevers chills sweats or shaking chills, and again pain is worse with movement [ Review of systems: As per history of present illness and below otherwise all systems reviewed and negative. Past medical history: As per history of present illness and as reviewed below otherwise noncontributory. Surgical history: As per history of present illness and as reviewed below otherwise noncontributory. Social history: No reported history of drug or alcohol abuse. Family history: As per history of present illness and as reviewed below otherwise noncontributory. Physical exam: 36-year-old female visibly anxious no acute distress clear lungs regular rate and rhythm Mild tenderness left costal margin.nontender abdomen and pelvis. Normal bowel sounds no mass or megaly. Nondistended abdomen. HEENT: Atraumatic, normocephalic, pupils reactive, negative for conjunctival pallor or scleral icterus, mucous membranes moist, throat clear, neck supple, nontender, trachea midline. Lungs: Clear to auscultation, breath sounds equal bilaterally, chest nontender. Heart: S1S2, regular, negative for clicks, rubs, or JVD. Mild tachycardia at 120 regular rate and rhythm Abdomen: Soft, nondistended, nontender. Negative for masses or hepatosplenomegaly. Negative for costovertebral tenderness. Pelvis: Stable nontender. Genitourinary: Deferred. Rectal: Deferred. Extremities: Atraumatic, negative for cords or calf pain. Neurovascular unremarkable. Neuro: Awake, alert, oriented. Cranial nerves grossly unremarkable. Cerebellum unremarkable. Motor and sensory unremarkable throughout. Exam nonfocal. Diagnostics: [EKG with normal sinus tachycardia at 117 right axis deviation no STEMI Chest x-ray unremarkable interpreted by me Therapeutics: [Ativan and aspirin given] Impression: [Pleurisy Chest wall pain Anxiety] Plan: [36-year-old female with a history of tobacco ,high cholesterol, and family history of heart disease now complaining of persistent symptoms unchanged since recent admission with a negative cardiac and abdominal workup. Patient with mild tachycardia. She has a clearly contributory anxiety component. Anxiety lysis administered with Ativan. Hydration initiated with normal saline. Full workup pending Patient well-appearing on multiple reexamines after Ativan. Tachycardia dramatically improved with hydration and treatment of anxiety. Chest x-ray and EKG unremarkable. Troponin and d-dimer negative. Urinalysis benign as well. White blood cell count mildly elevated at 12.4 to however this is lower than patient's apparent chronic leukocytosis with white blood cell count on January 13 12.94 and on March 10 12.85 default diagnosis of pleurisy and atypical chest pain appropriate. Patient aware that her blood pressure was high today as well as her white count being chronically high. No further workup or treatment indicated at this time. Patient agrees with outpatient follow-up and strict return precautions given Definitive disposition and diagnosis as appropriate pending reevaluation and review of above. Left Chest Pain Score (Numeric/FACES): 9 Left Epigastric Pain Score (Numeric/FACES): 9 - Related Data Allergies Allergy/AdvReac Type Severity Reaction Status Date / Time hydrocodone Allergy Hives Verified 03/12/17 11:21 morphine AdvReac Itching Verified 03/12/17 11:21 Home Meds: Home Meds Citalopram [Citalopram HBr] 40 mg PO DAILY 08/02/15 [History] metFORMIN HCl [Metformin HCl ER] 1,500 mg PO DAILY 08/02/15 [History] ALPRAZolam [Alprazolam] 0.5 mg PO BID PRN 03/10/17 [History] Simvastatin [Zocor] 20 mg PO BEDTIME 03/10/17 [History] oxyCODONE HCl/Acetaminophen [Percocet 5-325 mg Tablet] 5 - 325 mg PO Q4H PRN [History] Pantoprazole [ProTONIX] 40 mg PO DAILY #30 tab.cr 03/11/17 [Rx] Past Medical History - Past Health History Medical/Surgical History: Denies Medical/Surgical History HEENT History: Reports: None Cardiovascular History: Reports: None Other Cardiovascular History: states she had a "hole in heart" repaired at age 8 Respiratory History: Reports: None Gastrointestinal History: Reports: None Genitourinary History: Reports: None [employer] History: Reports: 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, Musculoskeletal History: Reports: Arthritis, Fracture, Gout Other Musculoskeletal History: one episode of gout in ankles at age 14, fx in bilateral feet, right wrist and left collarbone Neurological History: Reports: None Psychiatric History: Reports: Anxiety, Depression Endocrine/Metabolic History: Reports: Diabetes, Type II, Obesity/BMI 30+ Hematologic History: Reports: None Immunologic History: Reports: None Oncologic (Cancer) History: Reports: None Dermatologic History: Reports: None - Infectious Disease History Infectious Disease History: Reports: Chicken Pox - Past Surgical History Head Surgeries/Procedures: Reports: None HEENT Surgical History: Reports: None Cardiovascular Surgical History: Reports: Other (See Below) Respiratory Surgical History: Reports: None GI Surgical History: Reports: Cholecystectomy Female Surgical History: Reports: Section Neurological Surgical History: Reports: None Musculoskeletal Surgical History: Reports: Other (See Below) Oncologic Surgical History: Reports: None Dermatological Surgical History: Reports: None Social & Family History - Family History Family Medical History: Noncontributory Cardiac: Reports: Other (See Below) Other Cardiac Family History: heart disease Respiratory: Reports: Asthma Endocrine/Metabolic: Reports: Diabetes, type II Hematologic: Reports: Other (See Below) Other Hematologic Family History: excessive bleeding Oncologic: Reports: Colon, Ovarian - Tobacco Use Smoking Status *Q: Current Every Day Smoker Years of Tobacco use: 20 Packs/Tins Daily: 0.5 - Caffeine Use Caffeine Use: Reports: Soda Caffeine Use Comment: 2drinks/day - Recreational Drug Use Recreational Drug Use: No Drug Use in Last 12 Months: No ED ROS GENERAL - Review of Systems Review Of Systems: See Below (History of present illness) ED EXAM, GENERAL - Physical Exam Exam: See Below (History of present illness) Course - Vital Signs Last Recorded V/S: Last Vital Signs Temp 36.6 C 03/12/17 11:18 Pulse 105 H 03/12/17 14:33 Resp 18 03/12/17 14:33 BP 133/83 03/12/17 14:33 Pulse Ox 96 03/12/17 14:33 - Orders/Labs/Meds Orders: Active Orders 24 hr Category Date Time Status EKG 12 Lead [EKG Documentation Completion] [RC] STAT Care 03/12/17 11:25 Active Chest 1V Frontal [CR] Stat Exams 03/12/17 11:39 Taken Sodium Chloride 0.9% [Normal Saline] 1,000 ml Med 03/12/17 11:45 Active IV ASDIRECTED Peripheral IV Insertion Adult [OM.PC] Stat Oth 03/12/17 11:39 Ordered Medication Orders Sodium Chloride (Normal Saline) 1,000 mls @ 999 mls/hr IV ASDIRECTED LAURIE Last Admin: 03/12/17 11:49 Dose: 999 mls/hr Labs: Laboratory Tests 03/12/17 03/12/17 03/12/17 Range/Units 11:30 11:30 11:30 WBC 12.42 H (4.0-11.0) K/uL RBC 4.69 (4.30-5.90) M/uL Hgb 14.7 (12.0-16.0) g/dL Hct 43.6 (36.0-46.0) % MCV 93.0 (80.0-98.0) fL MCH 31.3 (27.0-32.0) pg MCHC 33.7 (31.0-37.0) g/dL RDW Std Deviation 45.1 (28.0-62.0) fl RDW Coeff of [place] 13 (11.0-15.0) % Plt Count 429 H (150-400) K/uL MPV 8.30 (7.40-12.00) fL Neut % (Auto) 71.8 (48.0-80.0) % Lymph % (Auto) 21.3 (16.0-40.0) % [place] % (Auto) 5.4 (0.0-15.0) % Eos % (Auto) 1.3 (0.0-7.0) % Baso % (Auto) 0.2 (0.0-1.5) % Neut # (Auto) 8.9 H (1.4-5.7) K/uL Lymph # (Auto) 2.7 H (0.6-2.4) K/uL [place] # (Auto) 0.7 (0.0-0.8) K/uL Eos # (Auto) 0.2 (0.0-0.7) K/uL Baso # (Auto) 0.0 (0.0-0.1) K/uL Nucleated RBC % 0.0 /100WBC Nucleated RBCs # 0 K/uL D-Dimer, Quantitative (0.0-0.52) mg/LFEU Sodium 139 (136-146) mmol/L Potassium 4.1 (3.5-5.1) mmol/L Chloride 103 (98-110) mmol/L Carbon Dioxide 24 (21-31) mmol/L BUN 6 (6.0-23.0) mg/dL Creatinine 0.8 (0.6-1.5) mg/dL Est Cr Clr Drug Dosing 92.76 mL/min Estimated GFR (MDRD) > 60.0 ml/min Glucose 158 H (60-110) mg/dL Calcium 9.8 (8.8-10.8) mg/dL Total Bilirubin 0.4 (0.1-1.5) mg/dL AST 22 (5-40) IU/L ALT 28 (8-54) IU/L Alkaline Phosphatase 119 (40-150) Troponin I < 0.10 (0.0-0.29) NG/ML Total Protein 7.7 (6.0-8.0) g/dL Albumin 4.5 (3.5-5.0) g/dL Globulin 3.2 (2.0-3.5) g/dL Albumin/Globulin Ratio 1.4 (1.3-2.8) Lipase (7-80) U/L Urine Color Urine Appearance Urine pH (5.0-8.0) Ur Specific [place] (1.001-1.035) Urine Protein (NEGATIVE) mg/dL Urine Glucose (UA) (NEGATIVE) mg/dL Urine Ketones (NEGATIVE) mg/dL Urine Occult Blood (NEGATIVE) Urine Nitrite (NEGATIVE) Urine Bilirubin (NEGATIVE) Urine Urobilinogen (<2.0) EU/dL Ur Leukocyte Esterase (NEGATIVE) Urine RBC (0-2/HPF) Urine WBC (0-5/HPF) Ur Epithelial Cells (NONE-FEW) Urine Bacteria (NEGATIVE) 03/12/17 03/12/17 03/12/17 Range/Units 11:30 11:30 11:30 WBC (4.0-11.0) K/uL RBC (4.30-5.90) M/uL Hgb (12.0-16.0) g/dL Hct (36.0-46.0) % MCV (80.0-98.0) fL MCH (27.0-32.0) pg MCHC (31.0-37.0) g/dL RDW Std Deviation (28.0-62.0) fl RDW Coeff of [place] (11.0-15.0) % Plt Count (150-400) K/uL MPV (7.40-12.00) fL Neut % (Auto) (48.0-80.0) % Lymph % (Auto) (16.0-40.0) % [place] % (Auto) (0.0-15.0) % Eos % (Auto) (0.0-7.0) % Baso % (Auto) (0.0-1.5) % Neut # (Auto) (1.4-5.7) K/uL Lymph # (Auto) (0.6-2.4) K/uL [place] # (Auto) (0.0-0.8) K/uL Eos # (Auto) (0.0-0.7) K/uL Baso # (Auto) (0.0-0.1) K/uL Nucleated RBC % /100WBC Nucleated RBCs # K/uL D-Dimer, Quantitative 0.27 (0.0-0.52) mg/LFEU Sodium (136-146) mmol/L Potassium (3.5-5.1) mmol/L Chloride (98-110) mmol/L Carbon Dioxide (21-31) mmol/L BUN (6.0-23.0) mg/dL Creatinine (0.6-1.5) mg/dL Est Cr Clr Drug Dosing mL/min Estimated GFR (MDRD) ml/min Glucose (60-110) mg/dL Calcium (8.8-10.8) mg/dL Total Bilirubin (0.1-1.5) mg/dL AST (5-40) IU/L ALT (8-54) IU/L Alkaline Phosphatase (40-150) Troponin I (0.0-0.29) NG/ML Total Protein (6.0-8.0) g/dL Albumin (3.5-5.0) g/dL Globulin (2.0-3.5) g/dL Albumin/Globulin Ratio (1.3-2.8) Lipase 16 (7-80) U/L Urine Color YELLOW Urine Appearance CLEAR Urine pH 6.0 (5.0-8.0) Ur Specific [place] <= 1.005 (1.001-1.035) Urine Protein NEGATIVE (NEGATIVE) mg/dL Urine Glucose (UA) NEGATIVE (NEGATIVE) mg/dL Urine Ketones NEGATIVE (NEGATIVE) mg/dL Urine Occult Blood TRACE-LYSED (NEGATIVE) Urine Nitrite NEGATIVE (NEGATIVE) Urine Bilirubin NEGATIVE (NEGATIVE) Urine Urobilinogen 0.2 (<2.0) EU/dL Ur Leukocyte Esterase NEGATIVE (NEGATIVE) Urine RBC 0-2 (0-2/HPF) Urine WBC 0-1 (0-5/HPF) Ur Epithelial Cells FEW (NONE-FEW) Urine Bacteria FEW (NEGATIVE) Meds: Medications Generic Name Dose Route Start Last Admin Trade Name Freq PRN Reason Stop Dose Admin Sodium Chloride 1,000 mls @ 999 mls/hr 03/12/17 11:45 03/12/17 11:49 Normal Saline IV 999 mls/hr ASDIRECTED LAURIE Administration Discontinued Medications Generic Name Dose Route Start Last Admin Trade Name Freq PRN Reason Stop Dose Admin Aspirin 324 mg 03/12/17 11:39 03/12/17 11:51 Aspirin PO 03/12/17 11:40 324 mg ONETIME ONE Administration Sodium Chloride 1,000 mls @ 999 mls/hr 03/12/17 13:36 03/12/17 13:39 Normal Saline IV 03/12/17 14:36 999 mls/hr NOW STA Administration Ketorolac Tromethamine 30 mg 03/12/17 13:51 03/12/17 14:32 Toradol IVPUSH 03/12/17 13:52 30 mg ONETIME ONE Administration Lorazepam 1 mg 03/12/17 11:56 03/12/17 12:16 Ativan IVPUSH 03/12/17 11:57 1 mg ONETIME ONE Administration Ondansetron HCl 4 mg 03/12/17 12:23 03/12/17 12:42 Zofran IVPUSH 03/12/17 12:24 4 mg ONETIME ONE Administration Departure - Departure Time of Disposition: 14:50 Disposition: Home, Self-Care 01 Condition: Good Clinical Impression: Pleurisy, Nonspecific chest pain, Leukocytosis, unspecified, Hypertension - Discharge Information Instructions: Nonspecific Chest Pain, [id number] Referrals: PCP,None [Primary Care Provider] - Forms: ED Department Discharge Additional Instructions: Your findings today are consistent with pleurisy. Pleurisy is pain as a result of irritation of the lung lining, and typically this is sharp pain with inspiration. Your chest x-ray and EKG are unremarkable as well as your laboratory workup. Your white blood cell count is mildly elevated at 12.42. This is actually lower than your previous value of 12.94 on January 13 and 12.85 on March 10. It appears that you have a mildly chronically elevated white blood cell count and this is something to follow-up with your DrBarbra for reevaluation and further workup as needed. Your blood pressure was elevated today at 157/ 108. This improved with treatment of your anxiety but it is necessary to follow- up with your DrBarbra to determine if you have essential hypertension and whether or not you require long-term treatment for high blood pressure. Follow-up with your DrBarbra tomorrow and return immediately for new severe or worsening symptoms. - My Orders Last 24 Hours: My Active Orders 03/12/17 11:25 EKG 12 Lead [EKG Documentation Completion] [RC] STAT 03/12/17 11:39 Chest 1V Frontal [CR] Stat Peripheral IV Insertion Adult [OM.PC] Stat 03/12/17 11:45 Sodium Chloride 0.9% [Normal Saline] 1,000 ml IV ASDIRECTED - Assessment/Plan Last 24 Hours: My Active Orders 03/12/17 11:25 EKG 12 Lead [EKG Documentation Completion] [RC] STAT 03/12/17 11:39 Chest 1V Frontal [CR] Stat Peripheral IV Insertion Adult [OM.PC] Stat 03/12/17 11:45 Sodium Chloride 0.9% [Normal Saline] 1,000 ml IV ASDIRECTED
[2017-03-12] MEDS ORDERED: Ondansetron 4 MG/2 ML SDV IVPUSH ONE (12:23)
[2017-03-12] MEDS ORDERED: Sodium Chloride 0.9% 1,000 ML IV STA (13:36)
[2017-03-12] MEDS ORDERED: Ketorolac 30 MG/ML SDV IVPUSH ONE (13:51)
[2017-03-12 16:11] VITALS: BP 151/92
--- NOTE | 2017-03-14 11:07 | CR ---
EXAM DATE: 03/12/17 PATIENT'S AGE: 36 Patient: SINGH GERONIMO Facility: [place], [place] Site . Site : [id number] Study: XRay Chest [id number]/29/2017 12:14:34 PM Ordering Physician: Tk Durand Final Report: CHEST 1 VIEW AP INDICATION: Chest pain. IMPRESSION: Normal heart size and vascular pattern. Lungs are clear. No pneumothorax or pleural abnormality. ECG Monitor leads projected over the patient. No change previous 03/10/2017. Dictated by Al Kim MD @ Mar 12 2017 12:17PM (Electronic Signature) Report Signed by Proxy. GAIL
== END 2017-03-12 15:40 | disposition home or self-care (01) ==
LOC: MW.ED 11:12
DX: R09.1 Pleurisy (principal); F41.9 Anxiety disorder, unspecified; D72.829 Elevated white blood cell count, unspecified; F17.210 Nicotine dependence, cigarettes, uncomplicated; I10 Essential (primary) hypertension; E11.9 Type 2 diabetes mellitus without complications; E66.9 Obesity, unspecified; Z88.5 Allergy status to narcotic agent; Z79.84 Long term (current) use of oral hypoglycemic drugs; Z79.899 Other long term (current) drug therapy; Z68.35 Body mass index [BMI] 35.0-35.9, adult
CPT/HCPCS: 36415; 71010; 80053; 81001; 83690; 84484; 85025; 85379; 96361; 96374; 96375; 99285; A9270; J1885; J2060; J2405; J7040; 93005; 99284

== ENCOUNTER 2017-04-03 16:07 | Observation (INO) | payer BC ==
[2017-04-03] MEDS ORDERED: Sodium Chloride 0.9% 2.5 ML Syringe FLUSH PRN (16:18)
[2017-04-03] MEDS ORDERED: Sodium Chloride 0.9% 10 ML Syringe FLUSH PRN (16:18)
--- NOTE | 2017-04-03 16:18 | EDM.PDOC ---
ED HPI GENERAL MEDICAL PROBLEM - General Chief Complaint: Chest Pain Stated Complaint: CHEST PAIN Time Seen by Provider: 04/03/17 16:09 - History of Present Illness INITIAL COMMENTS - FREE TEXT/NARRATIVE: HISTORY AND PHYSICAL: History of present illness: Patient 36-year-old white female presents with concern of left-sided chest pain has been no clear associated discharge breath nausea vomiting diaphoresis palpitations or other concern Review of systems: As per history of present illness and below otherwise all systems reviewed and negative. Past medical history: As per history of present illness and as reviewed below otherwise noncontributory. Surgical history: As per history of present illness and as reviewed below otherwise noncontributory. Social history: No reported history of drug or alcohol abuse. Family history: As per history of present illness and as reviewed below otherwise noncontributory. Physical exam: HEENT: Atraumatic, normocephalic, pupils reactive, negative for conjunctival pallor or scleral icterus, mucous membranes moist, throat clear, neck supple, nontender, trachea midline. Lungs: Clear to auscultation, breath sounds equal bilaterally, chest nontender. Heart: S1S2, regular, negative for clicks, rubs, or JVD. Abdomen: Soft, nondistended, nontender. Negative for masses or hepatosplenomegaly. Negative for costovertebral tenderness. Pelvis: Stable nontender. Genitourinary: Deferred. Rectal: Deferred. Extremities: Atraumatic, negative for cords or calf pain. Neurovascular unremarkable. Neuro: Awake, alert, anxious, oriented. Cranial nerves II through XII unremarkable. Cerebellum unremarkable. Motor and sensory unremarkable throughout. Exam nonfocal. Diagnostics: CBC CMP PT INR troponin chest x-ray EKG lipase Therapeutics: IV O2 monitor Impression: #1 atypical chest pain due to anxiety Definitive disposition and diagnosis as appropriate pending reevaluation and review of above. Left Chest Pain Score (Numeric/FACES): 10 - Related Data Allergies Allergy/AdvReac Type Severity Reaction Status Date / Time hydrocodone Allergy Hives Verified 04/03/17 16:13 morphine AdvReac Itching Verified 04/03/17 16:13 Home Meds: Home Meds metFORMIN HCl [Metformin HCl ER] 1,500 mg PO DAILY 08/02/15 [History] Simvastatin [Zocor] 20 mg PO BEDTIME 03/10/17 [History] Past Medical History - Past Health History Medical/Surgical History: Denies Medical/Surgical History HEENT History: Reports: None Cardiovascular History: Reports: None Other Cardiovascular History: states she had a "hole in heart" repaired at age 8 Respiratory History: Reports: None Gastrointestinal History: Reports: None Genitourinary History: Reports: None 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: Reports: 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, Musculoskeletal History: Reports: Arthritis, Fracture, Gout Other Musculoskeletal History: one episode of gout in ankles at age 14, fx in bilateral feet, right wrist and left collarbone Neurological History: Reports: None Psychiatric History: Reports: Anxiety, Depression Endocrine/Metabolic History: Reports: Diabetes, Type II, Obesity/BMI 30+ Hematologic History: Reports: None Immunologic History: Reports: None Oncologic (Cancer) History: Reports: None Dermatologic History: Reports: None - Infectious Disease History Infectious Disease History: Reports: Chicken Pox - Past Surgical History Head Surgeries/Procedures: Reports: None HEENT Surgical History: Reports: None Cardiovascular Surgical History: Reports: Other (See Below) Respiratory Surgical History: Reports: None GI Surgical History: Reports: Cholecystectomy Female Surgical History: Reports: Section Neurological Surgical History: Reports: None Musculoskeletal Surgical History: Reports: Other (See Below) Oncologic Surgical History: Reports: None Dermatological Surgical History: Reports: None Social & Family History - Family History Family Medical History: Noncontributory Cardiac: Reports: Other (See Below) Other Cardiac Family History: heart disease Respiratory: Reports: Asthma Endocrine/Metabolic: Reports: Diabetes, type II Hematologic: Reports: Other (See Below) Other Hematologic Family History: excessive bleeding Oncologic: Reports: Colon, Ovarian - Tobacco Use Smoking Status *Q: Current Every Day Smoker Years of Tobacco use: 20 Packs/Tins Daily: 0.5 - Caffeine Use Caffeine Use: Reports: Soda Caffeine Use Comment: 2drinks/day - Recreational Drug Use Recreational Drug Use: No Drug Use in Last 12 Months: No ED ROS GENERAL - Review of Systems Review Of Systems: ROS reveals no pertinent complaints other than HPI. ED EXAM, GENERAL - Physical Exam Exam: See Below (See dictation) Course - Vital Signs Last Recorded V/S: Last Vital Signs Temp 37.0 C 04/03/17 16:18 Pulse 120 H 04/03/17 17:15 Resp 24 H 04/03/17 17:15 BP 133/85 04/03/17 17:15 Pulse Ox 98 04/03/17 17:15 - Orders/Labs/Meds Orders: Active Orders 24 hr Category Date Time Status Cardiac Monitoring [RC] . DIRECTED Care 04/03/17 16:18 Active EKG Documentation Completion [RC] STAT Care 04/03/17 16:19 Active Oxygen Therapy, ED [RC] ASDIRECTED Care 04/03/17 16:18 Active Abdomen Pelvis w Cont [CT] Stat Exams 04/03/17 17:34 Taken Ang Chest [CT] Stat Exams 04/03/17 17:15 Taken Chest 1V Frontal [CR] Stat Exams 04/03/17 16:19 Taken Sodium Chloride 0.9% [Saline Flush] Med 04/03/17 16:18 Active 10 ml FLUSH ASDIRECTED PRN Sodium Chloride 0.9% [Saline Flush] Med 04/03/17 16:18 Active 2.5 ml FLUSH ASDIRECTED PRN Saline Lock Insert [OM.PC] Stat Oth 04/03/17 16:18 Ordered Medication Orders Sodium Chloride (Saline Flush) 10 ml FLUSH ASDIRECTED PRN PRN Reason: Keep Vein Open Last Admin: 04/03/17 16:31 Dose: 10 ml Sodium Chloride (Saline Flush) 2.5 ml FLUSH ASDIRECTED PRN PRN Reason: Keep Vein Open Last Admin: 04/03/17 16:31 Dose: 2.5 ml Labs: Laboratory Tests 04/03/17 04/03/17 04/03/17 Range/Units 16:15 16:15 16:15 WBC 12.71 H (4.0-11.0) K/uL RBC 4.69 (4.30-5.90) M/uL Hgb 15.0 (12.0-16.0) g/dL Hct 43.5 (36.0-46.0) % MCV 92.8 (80.0-98.0) fL MCH 32.0 (27.0-32.0) pg MCHC 34.5 (31.0-37.0) g/dL RDW Std Deviation 44.9 (28.0-62.0) fl RDW Coeff of Mirlande 13 (11.0-15.0) % Plt Count 429 H (150-400) K/uL MPV 8.30 (7.40-12.00) fL Neut % (Auto) 59.3 (48.0-80.0) % Lymph % (Auto) 32.9 (16.0-40.0) % Stanley % (Auto) 5.3 (0.0-15.0) % Eos % (Auto) 2.1 (0.0-7.0) % Baso % (Auto) 0.4 (0.0-1.5) % Neut # (Auto) 7.5 H (1.4-5.7) K/uL Lymph # (Auto) 4.2 H (0.6-2.4) K/uL Stanley # (Auto) 0.7 (0.0-0.8) K/uL Eos # (Auto) 0.3 (0.0-0.7) K/uL Baso # (Auto) 0.1 (0.0-0.1) K/uL Nucleated RBC % 0.0 /100WBC Nucleated RBCs # 0 K/uL INR 1.05 (0.86-1.11) Sodium 139 (136-146) mmol/L Potassium 3.8 (3.5-5.1) mmol/L Chloride 104 (98-110) mmol/L Carbon Dioxide 23 (21-31) mmol/L BUN 4 L (6.0-23.0) mg/dL Creatinine 0.7 (0.6-1.5) mg/dL Est Cr Clr Drug Dosing 106.01 mL/min Estimated GFR (MDRD) > 60.0 ml/min Glucose 148 H (60-110) mg/dL Calcium 10.1 (8.8-10.8) mg/dL Total Bilirubin 0.3 (0.1-1.5) mg/dL AST 23 (5-40) IU/L ALT 37 (8-54) IU/L Alkaline Phosphatase 120 (40-150) Troponin I (0.0-0.29) NG/ML Total Protein 7.6 (6.0-8.0) g/dL Albumin 4.5 (3.5-5.0) g/dL Globulin 3.1 (2.0-3.5) g/dL Albumin/Globulin Ratio 1.5 (1.3-2.8) Lipase (7-80) U/L 04/03/17 04/03/17 Range/Units 16:15 16:15 WBC (4.0-11.0) K/uL RBC (4.30-5.90) M/uL Hgb (12.0-16.0) g/dL Hct (36.0-46.0) % MCV (80.0-98.0) fL MCH (27.0-32.0) pg MCHC (31.0-37.0) g/dL RDW Std Deviation (28.0-62.0) fl RDW Coeff of Mirlande (11.0-15.0) % Plt Count (150-400) K/uL MPV (7.40-12.00) fL Neut % (Auto) (48.0-80.0) % Lymph % (Auto) (16.0-40.0) % Stanley % (Auto) (0.0-15.0) % Eos % (Auto) (0.0-7.0) % Baso % (Auto) (0.0-1.5) % Neut # (Auto) (1.4-5.7) K/uL Lymph # (Auto) (0.6-2.4) K/uL Stanley # (Auto) (0.0-0.8) K/uL Eos # (Auto) (0.0-0.7) K/uL Baso # (Auto) (0.0-0.1) K/uL Nucleated RBC % /100WBC Nucleated RBCs # K/uL INR (0.86-1.11) Sodium (136-146) mmol/L Potassium (3.5-5.1) mmol/L Chloride (98-110) mmol/L Carbon Dioxide (21-31) mmol/L BUN (6.0-23.0) mg/dL Creatinine (0.6-1.5) mg/dL Est Cr Clr Drug Dosing mL/min Estimated GFR (MDRD) ml/min Glucose (60-110) mg/dL Calcium (8.8-10.8) mg/dL Total Bilirubin (0.1-1.5) mg/dL AST (5-40) IU/L ALT (8-54) IU/L Alkaline Phosphatase (40-150) Troponin I < 0.10 (0.0-0.29) NG/ML Total Protein (6.0-8.0) g/dL Albumin (3.5-5.0) g/dL Globulin (2.0-3.5) g/dL Albumin/Globulin Ratio (1.3-2.8) Lipase 14 (7-80) U/L Meds: Medications Generic Name Dose Route Start Last Admin Trade Name Freq PRN Reason Stop Dose Admin Sodium Chloride 10 ml 04/03/17 16:18 04/03/17 16:31 Saline Flush FLUSH 10 ml ASDIRECTED PRN Administration Keep Vein Open Sodium Chloride 2.5 ml 04/03/17 16:18 04/03/17 16:31 Saline Flush FLUSH 2.5 ml ASDIRECTED PRN Administration Keep Vein Open Discontinued Medications Generic Name Dose Route Start Last Admin Trade Name Freq PRN Reason Stop Dose Admin Hydromorphone HCl 1 mg 04/03/17 18:02 04/03/17 18:07 Dilaudid IVPUSH 04/03/17 18:03 1 mg ONETIME ONE Administration Sodium Chloride 1,000 mls @ 999 mls/hr 04/03/17 16:22 04/03/17 16:24 Normal Saline IV 04/03/17 17:22 999 mls/hr STAT ONE Administration Sodium Chloride 1,000 mls @ 999 mls/hr 04/03/17 17:26 04/03/17 17:27 Normal Saline IV 04/03/17 18:26 999 mls/hr .Bolus ONE Administration Iopamidol 50 ml 04/03/17 17:28 04/03/17 17:29 Isovue Multipack-370 (76%) IVPUSH 04/03/17 17:29 50 ml ONETIME STA Administration Ketorolac Tromethamine 30 mg 04/03/17 17:19 04/03/17 17:23 Toradol IVPUSH 04/03/17 17:20 30 mg ONETIME ONE Administration Lorazepam 1 mg 04/03/17 16:22 04/03/17 16:29 Ativan IVPUSH 04/03/17 16:23 1 mg ONETIME ONE Administration Ondansetron HCl 4 mg 04/03/17 17:26 04/03/17 17:30 Zofran IVPUSH 04/03/17 17:27 4 mg ONETIME ONE Administration Departure - Departure Time of Disposition: 18:38 Disposition: Refer to Observation Condition: Good Clinical Impression: Atypical chest pain - Discharge Information Forms: ED Department Discharge - My Orders Last 24 Hours: My Active Orders 04/03/17 16:18 Cardiac Monitoring [RC] . DIRECTED Oxygen Therapy, ED [RC] ASDIRECTED Sodium Chloride 0.9% [Saline Flush] 10 ml FLUSH ASDIRECTED PRN Sodium Chloride 0.9% [Saline Flush] 2.5 ml FLUSH ASDIRECTED PRN Saline Lock Insert [OM.PC] Stat 04/03/17 16:19 EKG Documentation Completion [RC] STAT Chest 1V Frontal [CR] Stat 04/03/17 17:15 Ang Chest [CT] Stat 04/03/17 17:34 Abdomen Pelvis w Cont [CT] Stat - Assessment/Plan Last 24 Hours: My Active Orders 04/03/17 16:18 Cardiac Monitoring [RC] . DIRECTED Oxygen Therapy, ED [RC] ASDIRECTED Sodium Chloride 0.9% [Saline Flush] 10 ml FLUSH ASDIRECTED PRN Sodium Chloride 0.9% [Saline Flush] 2.5 ml FLUSH ASDIRECTED PRN Saline Lock Insert [OM.PC] Stat 04/03/17 16:19 EKG Documentation Completion [RC] STAT Chest 1V Frontal [CR] Stat 04/03/17 17:15 Ang Chest [CT] Stat 04/03/17 17:34 Abdomen Pelvis w Cont [CT] Stat
[2017-04-03] MEDS ORDERED: Sodium Chloride 0.9% 1,000 ML IV ONE ×2 (16:22→17:26)
[2017-04-03] MEDS ORDERED: LORazepam 2 MG/ML MDV IVPUSH ONE (16:22)
[2017-04-03 16:46] LABS: CHLORIDE,CL 104 mmol/L (98-110); SODIUM,NA 139 mmol/L (136-146)
[2017-04-03] MEDS ORDERED: Ketorolac 30 MG/ML SDV IVPUSH ONE (17:19)
[2017-04-03] MEDS ORDERED: Ondansetron 4 MG/2 ML SDV IVPUSH ONE (17:26)
[2017-04-03] MEDS ORDERED: Iopamidol 755 MG/ML 500 ML Multipack Bottle IVPUSH STA (17:28)
[2017-04-03] MEDS ORDERED: HYDROmorphone 1 MG/ML Syringe IVPUSH ONE (18:02)
[2017-04-03] MEDS ORDERED: Levofloxacin/Dextrose 5%-Water 750 MG in Premix Bag 1 BAG IV ONE (18:59)
[2017-04-03] MEDS ORDERED: Temazepam 15 MG Cap PO PRN (19:15)
[2017-04-03] MEDS ORDERED: Bisacodyl 5 MG Tab PO PRN (19:15)
[2017-04-03] MEDS ORDERED: LORazepam 2 MG/ML MDV IV PRN (19:15)
[2017-04-03] MEDS ORDERED: Acetaminophen 325 MG Tab PO PRN (19:15)
--- NOTE | 2017-04-03 19:15 | PCM.HP ---
H&P History of Present Illness - General Date of Service: 04/03/17 Admit Problem/Dx: Admission Diagnosis/Problem Admission Diagnosis/Problem Chest pain Source of Information: Patient, Family, Old Records, Provider - History of Present Illness Initial Comments - Free Text/Narative: She was seen in the ED today where her chief complaint was left sided chest pain. She has noted chills and night sweats and her states that she has been coughing. No vomiting; nausea, anorexia. no bleeding She denies current . Left Chest Pain Score (Numeric/FACES): 6 - Related Data Allergies/Adverse Reactions: Allergies Allergy/AdvReac Type Severity Reaction Status Date / Time hydrocodone Allergy Hives Verified 04/03/17 16:13 morphine AdvReac Itching Verified 04/03/17 16:13 Home Medications: Home Meds metFORMIN HCl [Metformin HCl ER] 1,500 mg PO DAILY 08/02/15 [History] Simvastatin [Zocor] 20 mg PO BEDTIME 03/10/17 [History] Past Medical History - Past Health History Medical/Surgical History: Denies Medical/Surgical History HEENT History: Reports: None Cardiovascular History: Reports: None Other Cardiovascular History: states she had a "hole in heart" repaired at age 8 Respiratory History: Reports: None Gastrointestinal History: Reports: None Genitourinary History: Reports: None 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: 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, Musculoskeletal History: Reports: Arthritis, Fracture, Gout Other Musculoskeletal History: one episode of gout in ankles at age 14, fx in bilateral feet, right wrist and left collarbone Neurological History: Reports: None Psychiatric History: Reports: Anxiety, Depression Endocrine/Metabolic History: Reports: Diabetes, Type II, Obesity/BMI 30+ Hematologic History: Reports: None Immunologic History: Reports: None Oncologic (Cancer) History: Reports: None Dermatologic History: Reports: None - Infectious Disease History Infectious Disease History: Reports: Chicken Pox - Past Surgical History Head Surgeries/Procedures: Reports: None HEENT Surgical History: Reports: None Cardiovascular Surgical History: Reports: Other (See Below) Respiratory Surgical History: Reports: None GI Surgical History: Reports: Cholecystectomy Female Surgical History: Reports: Section Neurological Surgical History: Reports: None Musculoskeletal Surgical History: Reports: Other (See Below) Oncologic Surgical History: Reports: None Dermatological Surgical History: Reports: None Social & Family History - Family History Family Medical History: Noncontributory Cardiac: Reports: Other (See Below) Other Cardiac Family History: heart disease Respiratory: Reports: Asthma Endocrine/Metabolic: Reports: Diabetes, type II Hematologic: Reports: Other (See Below) Other Hematologic Family History: excessive bleeding Oncologic: Reports: Colon, Ovarian - Tobacco Use Smoking Status *Q: Current Every Day Smoker Years of Tobacco use: 20 Packs/Tins Daily: 0.5 Used Tobacco, but Quit: No Second Hand Smoke Exposure: No - Caffeine Use Caffeine Use: Reports: Soda Caffeine Use Comment: 2drinks/day - Alcohol Use Alcohol Use Comment: she reports " social drinking". - Recreational Drug Use Recreational Drug Use: No Drug Use in Last 12 Months: No H&P Review of Systems - Review of Systems: Review Of Systems: See Below General: Reports: Chills, Malaise, Diaphoresis Pulmonary: Reports: Shortness of Breath, Cough Cardiovascular: Reports: Chest Pain Gastrointestinal: Reports: Decreased Appetite, Nausea. Denies: Bloody Stool, Difficulty Swallowing, Hematemesis, Hematochezia, Melena Genitourinary: Denies: Dysuria, Hematuria Exam - Exam Exam: See Below - Vital Signs Vital Signs: Last Vital Signs Temp 96.7 F 04/03/17 19:00 Pulse 105 H 04/03/17 19:00 Resp 19 04/03/17 19:00 BP 144/74 H 04/03/17 19:00 Pulse Ox 98 04/03/17 19:00 Weight: 99.79 kg - Exam General: Alert, Oriented, Cooperative HEENT: Conjunctiva Clear, EOMI, Mucosa Moist & [place] Neck: Supple Lungs: Clear to Auscultation, Normal Respiratory Effort. No: Crackles, Rales, Rhonchi, Rub, Stridor, Wheezing Cardiovascular: Regular Rate, Regular Rhythm, Tachycardia GI/Abdominal Exam: Soft, Non-Tender (Female) Exam: Deferred Rectal (Female) Exam: Deferred Neurological: Cranial Nerves Intact, Normal Speech Neuro Extensive - Mental Status: Normal Mood/Affect - Patient Data Result Diagrams: 04/03/17 16:15 04/03/17 16:15 *Q Meaningful Use (ADM) - VTE *Q VTE Criteria *Q: - Stroke *Q Stroke Criteria *Q: - AMI *Q AMI Criteria *Q: - Problem List (1) Pneumonitis SNOMED Code(s): 852033351 ICD Code: J18.9 - PNEUMONIA, UNSPECIFIED ORGANISM Status: Acute Current Visit: Yes (2) Diabetes mellitus SNOMED Code(s): 64413618 ICD Code: E11.9 - TYPE 2 DIABETES MELLITUS WITHOUT COMPLICATIONS Status: Acute Current Visit: Yes (3) Pleurisy SNOMED Code(s): 493623050 ICD Code: R09.1 - PLEURISY Status: Acute Current Visit: No Problem List Initiated/Reviewed/Updated: Yes Orders Last 24hrs: Active Orders 24 hr Category Date Time Status Levofloxacin/Dextrose 5%-Water [Levaquin in D5W 750 MG/ Med 04/03/17 18:59 Active 150 ML] 750 mg Premix Bag 1 bag IV ONETIME Medication Orders Levofloxacin/Dextrose 750 mg/ (Premix) 150 mls @ 100 mls/hr IV ONETIME ONE Stop: 04/03/17 20:28 Sodium Chloride (Saline Flush) 10 ml FLUSH ASDIRECTED PRN PRN Reason: Keep Vein Open Last Admin: 04/03/17 16:31 Dose: 10 ml Sodium Chloride (Saline Flush) 2.5 ml FLUSH ASDIRECTED PRN PRN Reason: Keep Vein Open Last Admin: 04/03/17 16:31 Dose: 2.5 ml Assessment/Plan Comment:: observation telemetry antibiotics Phoenix Hernandez MD
[2017-04-03] MEDS: HYDROmorphone 1 MG/ML Syringe IVPUSH PRN ×2 (19:56→22:04)
[2017-04-03] MEDS: Insulin Aspart 100 Units/ML 3 ML Pen SUBCUT SCH ×2 (20:08→21:20)
[2017-04-03] MEDS: metFORMIN 500 MG Tab PO SCH (20:09)
[2017-04-03] MEDS ORDERED: Simvastatin 20 MG Tab PO SCH (21:00)
[2017-04-03] MEDS: Ondansetron 4 MG/2 ML SDV IVPUSH PRN (22:11)
[2017-04-04] MEDS: HYDROmorphone 1 MG/ML Syringe IVPUSH PRN ×5 (00:06→08:21)
[2017-04-04] MEDS: Ondansetron 4 MG/2 ML SDV IVPUSH PRN (05:10)
[2017-04-04 06:00] LABS: CHLORIDE,CL 108 mmol/L (98-110); SODIUM,NA 140 mmol/L (136-146)
[2017-04-04] MEDS: Insulin Aspart 100 Units/ML 3 ML Pen SUBCUT SCH ×2 (06:30→10:44)
[2017-04-04] MEDS: metFORMIN 500 MG Tab PO SCH (07:27)
[2017-04-04] MEDS ORDERED: Alum Hydrox/Mag Hydrox/Simeth 15 ML, Metoclopramide 5 MG, Lidocaine 2% 5 ML PO ONE ×3 (08:58)
[2017-04-04] MEDS ORDERED: Magnesium Sulfate/Water 2 GM in Premix Bag 1 BAG IV ONE (09:00)
[2017-04-04] MEDS ORDERED: Acetaminophen/oxyCODONE 325-5 MG Tab PO PRN (10:00)
--- NOTE | 2017-04-04 10:44 | PCM.DCSUM1 ---
Discharge Summary - Hospital Course Brief History: This 36 year old female with pmh of DM type 2, chronic L hip pain with narcotic dependence, obesity, and anxiety presented to the ED with concerns of left sided chest pain. This chest pain was sharp in nature, radiates to bilateral shoulders. She reports nausea no vomiting. The pain seems to worsen after eating. She felt ill over the weekend. Vague reports of SOB and states he has heard her coughing some, no sputum production. She reports some diarrhea, no black or bloody BMs. Reports subjective chills and fevers at home. In the ED [place]ocytosis [place], [id number], CXR negative, ABD CT negative, Chest CT showed pneumonitis to L upper lobe. She was admitted for atypical chest pain and pneumonitis. PCP, Adriana Still - Discharge Data Discharge Date: 04/04/17 Discharge Disposition: Home, Self-Care 01 Condition: Good - Discharge Diagnosis/Problem(s) (1) Atypical chest pain SNOMED Code(s): 520368064 ICD Code: R07.89 - OTHER CHEST PAIN Status: Acute Current Visit: Yes (2) Pneumonitis SNOMED Code(s): 378603064 ICD Code: J18.9 - PNEUMONIA, UNSPECIFIED ORGANISM Status: Acute Current Visit: Yes (3) Diabetes mellitus SNOMED Code(s): 73666985 ICD Code: E11.9 - TYPE 2 DIABETES MELLITUS WITHOUT COMPLICATIONS Status: Chronic Current Visit: Yes Qualifiers: Diabetes mellitus type: type 2 Diabetes mellitus complication status: without complication Diabetes mellitus mcc insulin use: without moth exterminator use Qualified Code(s): E11.9 - Type 2 diabetes mellitus without complications (4) Hip pain SNOMED Code(s): 48370304 ICD Code: M25.559 - PAIN IN UNSPECIFIED HIP Status: Chronic Current Visit : No Qualifiers: Laterality: left Qualified Code(s): M25.552 - Pain in left hip - Patient Instructions Diet: Diabetic Diet Activity: No Strenuous Activities Showering/Bathing: May Shower Notify Provider of: Fever, Increased Pain, Swelling and Redness, Drainage, Nausea and/or Vomiting - Discharge Plan Prescriptions/Med Rec: Acetaminophen/oxyCODONE [Percocet 325-5 MG] 1 - 2 tab PO Q6H PRN #20 tablet PRN Reason: Pain Levofloxacin [Levaquin] 500 mg PO Q24H #4 tablet Pantoprazole Sodium [Protonix] 40 mg PO BID #60 tablet. Sucralfate [Carafate] 1 gm PO QIDACANDBED #120 tablet Home Medications: Home Meds metFORMIN HCl [Metformin HCl ER] 1,500 mg PO DAILY 08/02/15 [History] Simvastatin [Zocor] 20 mg PO BEDTIME 03/10/17 [History] ALPRAZolam [Alprazolam] 0.5 mg PO TID PRN 04/03/17 [History] Citalopram [Celexa] 20 mg PO BEDTIME 04/03/17 [History] Acetaminophen/oxyCODONE [Percocet 325-5 MG] 1 - 2 tab PO Q6H PRN #20 tablet [Rx] Levofloxacin [Levaquin] 500 mg PO Q24H #4 tablet 04/04/17 [Rx] Pantoprazole Sodium [Protonix] 40 mg PO BID #60 tablet. 04/04/17 [Rx] Sucralfate [Carafate] 1 gm PO QIDACANDBED #120 tablet 04/04/17 [Rx] Patient Handouts: Chest Wall Pain, [id number], Pneumonitis Referrals: Adriana Still [Primary Care Provider] - 04/11/17 1:45 pm (follow up 1 week) - Discharge Summary/Plan Comment DC Time >30 min.: No Discharge Summary/Plan Comment: Discharge Diagnoses: Atypical chest pain- ACS ruled out. Gastritis- related to NSAID use. Pneumonitis DM Type 2 Obesity Chronic pain- L hip, L hip arthoplasy scheduled in April Jennyfer was admitted for atypical chest pain. Troponins were trended, which were negative. Telemetry SR to ST, no ST segment changes. She continued to have LUQ pain which then radiates to chest, which is worsened by eating. She also reports some deep breathing illicits this pain as well. Hemoccult was negative. She was discharged from the hospital at the end of February. She denies taking Protonix because a side effect was joint pain. She reports taking Omeprazole. The pain from that admission stopped, but then came back this weekend associated with some nausea and prompted her visit to the ED. H. Pylori negative. Campylobacter negative. Other stool studies pending. She would like to go home today, we discussed possible gastritis from high use of NSAIDs due to hip pain. At [facility] two weeks ago, she did not fill Protonix due to evaluation for hip replacement coming up. She is willing to take this now. She felt the GI cocktail did help quite a bit with pain. I will send her home with Protonix BID and Carafate with each meal and bedtime x 1 month. In her past there has been mention of gastroparesis especially with her DM type 2 and chronic narcotic used. In further discussion with her she agrees with consultation with GI speciliast. We will arrange this for her, prior to discharge. She is taking Percocet at home for L hip pain, she is scheduled for a replacement in April. I will send her home with Protonix, Carafate for gastritis, encouraged to stay away from all NSAIDs. I will refill her Percocet 5 /325 mg 1-2 tabs every 6 hours PRN pain #20 no refills until her follow up with PCP next week. There was noted pneumonitis on Chest CT, she was started on Levaquin, will continue this x 4 more days. She denies being around any chemicals or inhaling anything irritating recently. Denies any chest pain or SOB. Follow up with GI specialist and PCP as scheduled. - General Info Date of Service: 04/04/17 Admission Dx/Problem (Free Text: Admission Diagnosis/Problem Admission Diagnosis/Problem Chest pain Subjective Update: Continues to have some pain to her LUQ which is sharp in nature, then radiates up to her chest and bilateral shoulders. Notices worsening with eating with some nausea. Functional Status: Reports: Pain Controlled, Tolerating Diet, Ambulating, Urinating - Review of Systems General: Reports: No Symptoms. Denies: Fever, Weakness Pulmonary: Reports: No Symptoms. Denies: Shortness of Breath, Cough, Wheezing Cardiovascular: Reports: No Symptoms. Denies: Chest Pain Gastrointestinal: Reports: Abdominal Pain (LUQ), Nausea. Denies: Melena, Vomiting Genitourinary: Reports: No Symptoms. Denies: Dysuria, Frequency, Burning Musculoskeletal: Reports: Joint Pain (L hip) Neurological: Reports: No Symptoms Psychiatric: Reports: No Symptoms - Patient Data Vitals - Most Recent: Last Vital Signs Temp 97 F 04/04/17 08:00 Pulse 88 04/04/17 08:00 Resp 14 08/21/17 08:00 BP 119/76 04/04/17 08:00 Pulse Ox 97 04/04/17 08:00 Weight - Most Recent: 99.79 kg I&O - Last 24 hours: Intake & Output 04/03/17 04/04/17 04/04/17 22:59 06:59 14:59 Intake Total 450 Output Total 800 Balance -350 Lab Results - Last 24 hrs: Laboratory Results - last 24 hr 04/03/17 04/03/17 04/04/17 Range/Units 20:05 22:58 04:59 WBC (4.0-11.0) K/uL RBC (4.30-5.90) M/uL Hgb (12.0-16.0) g/dL Hct (36.0-46.0) % MCV (80.0-98.0) fL MCH (27.0-32.0) pg MCHC (31.0-37.0) g/dL RDW Std Deviation (28.0-62.0) fl RDW Coeff of [place]land[place] (11.0-15.0) % Plt Count (150-400) K/uL MPV (7.40-12.00) fL Neut % (Auto) (48.0-80.0) % Lymph % (Auto) (16.0-40.0) % [place] % (Auto) (0.0-15.0) % Eos % (Auto) (0.0-7.0) % Baso % (Auto) (0.0-1.5) % Neut # (Auto) (1.4-5.7) K/uL Lymph # (Auto) (0.6-2.4) K/uL [place] # (Auto) (0.0-0.8) K/uL Eos # (Auto) (0.0-0.7) K/uL Baso # (Auto) (0.0-0.1) K/uL Nucleated RBC % /100WBC Nucleated RBCs # K/uL Sodium (136-146) mmol/L Potassium (3.5-5.1) mmol/L Chloride (98-110) mmol/L Carbon Dioxide (21-31) mmol/L BUN (6.0-23.0) mg/dL Creatinine (0.6-1.5) mg/dL Est Cr Clr Drug Dosing mL/min Estimated GFR (MDRD) ml/min Glucose (60-110) mg/dL POC Glucose 107 (60-110) mg/dL Hemoglobin A1c (0.0-6.0) % Calcium (8.8-10.8) mg/dL Magnesium (1.5-2.3) mEq/L Total Bilirubin (0.1-1.5) mg/dL AST (5-40) IU/L ALT (8-54) IU/L Alkaline Phosphatase (40-150) Troponin I < 0.10 < 0.10 (0.0-0.29) NG/ML Total Protein (6.0-8.0) g/dL Albumin (3.5-5.0) g/dL Globulin (2.0-3.5) g/dL Albumin/Globulin Ratio (1.3-2.8) Triglycerides (10-190) mg/dL Cholesterol (131-240) mg/dL LDL Cholesterol, Calc (60-180) mg/dL VLDL Cholesterol (5-55) mg/dL HDL Cholesterol (40-80) mg/dL Cholesterol/HDL Ratio (3.3-6.0) 04/04/17 04/04/17 04/04/17 Range/Units 04:59 04:59 04:59 WBC 9.86 (4.0-11.0) K/uL RBC 3.78 L (4.30-5.90) M/uL Hgb 11.8 L (12.0-16.0) g/dL Hct 35.7 L (36.0-46.0) % MCV 94.4 (80.0-98.0) fL MCH 31.2 (27.0-32.0) pg MCHC 33.1 (31.0-37.0) g/dL RDW Std Deviation 47.0 (28.0-62.0) fl RDW Coeff of [place]land[place] 14 (11.0-15.0) % Plt Count 354 (150-400) K/uL MPV 8.10 (7.40-12.00) fL Neut % (Auto) 38.2 L (48.0-80.0) % Lymph % (Auto) 51.0 H (16.0-40.0) % [place] % (Auto) 6.2 (0.0-15.0) % Eos % (Auto) 4.1 (0.0-7.0) % Baso % (Auto) 0.5 (0.0-1.5) % Neut # (Auto) 3.8 (1.4-5.7) K/uL Lymph # (Auto) 5.0 H (0.6-2.4) K/uL [place] # (Auto) 0.6 (0.0-0.8) K/uL Eos # (Auto) 0.4 (0.0-0.7) K/uL Baso # (Auto) 0.1 (0.0-0.1) K/uL Nucleated RBC % 0.0 /100WBC Nucleated RBCs # 0 K/uL Sodium 140 (136-146) mmol/L Potassium 4.0 (3.5-5.1) mmol/L Chloride 108 (98-110) mmol/L Carbon Dioxide 24 (21-31) mmol/L BUN 6 (6.0-23.0) mg/dL Creatinine 0.6 (0.6-1.5) mg/dL Est Cr Clr Drug Dosing 124.36 mL/min Estimated GFR (MDRD) > 60.0 ml/min Glucose 123 H (60-110) mg/dL POC Glucose (60-110) mg/dL Hemoglobin A1c 7.4 H (0.0-6.0) % Calcium 8.9 (8.8-10.8) mg/dL Magnesium 1.4 L (1.5-2.3) mEq/L Total Bilirubin 0.3 (0.1-1.5) mg/dL AST 24 (5-40) IU/L ALT 32 (8-54) IU/L Alkaline Phosphatase 89 (40-150) Troponin I (0.0-0.29) NG/ML Total Protein 5.6 L (6.0-8.0) g/dL Albumin 3.5 (3.5-5.0) g/dL Globulin 2.1 (2.0-3.5) g/dL Albumin/Globulin Ratio 1.7 (1.3-2.8) Triglycerides 306 H (10-190) mg/dL Cholesterol 177 (131-240) mg/dL LDL Cholesterol, Calc 86 (60-180) mg/dL VLDL Cholesterol 61 H (5-55) mg/dL HDL Cholesterol 30 L (40-80) mg/dL Cholesterol/HDL Ratio 5.9 (3.3-6.0) 04/04/17 Range/Units 06:02 WBC (4.0-11.0) K/uL RBC (4.30-5.90) M/uL Hgb (12.0-16.0) g/dL Hct (36.0-46.0) % MCV (80.0-98.0) fL MCH (27.0-32.0) pg MCHC (31.0-37.0) g/dL RDW Std Deviation (28.0-62.0) fl RDW Coeff of [place] (11.0-15.0) % Plt Count (150-400) K/uL MPV (7.40-12.00) fL Neut % (Auto) (48.0-80.0) % Lymph % (Auto) (16.0-40.0) % [place] % (Auto) (0.0-15.0) % Eos % (Auto) (0.0-7.0) % Baso % (Auto) (0.0-1.5) % Neut # (Auto) (1.4-5.7) K/uL Lymph # (Auto) (0.6-2.4) K/uL [place] # (Auto) (0.0-0.8) K/uL Eos # (Auto) (0.0-0.7) K/uL Baso # (Auto) (0.0-0.1) K/uL Nucleated RBC % /100WBC Nucleated RBCs # K/uL Sodium (136-146) mmol/L Potassium (3.5-5.1) mmol/L Chloride (98-110) mmol/L Carbon Dioxide (21-31) mmol/L BUN (6.0-23.0) mg/dL Creatinine (0.6-1.5) mg/dL Est Cr Clr Drug Dosing mL/min Estimated GFR (MDRD) ml/min Glucose (60-110) mg/dL POC Glucose 131 H (60-110) mg/dL Hemoglobin A1c (0.0-6.0) % Calcium (8.8-10.8) mg/dL Magnesium (1.5-2.3) mEq/L Total Bilirubin (0.1-1.5) mg/dL AST (5-40) IU/L ALT (8-54) IU/L Alkaline Phosphatase (40-150) Troponin I (0.0-0.29) NG/ML Total Protein (6.0-8.0) g/dL Albumin (3.5-5.0) g/dL Globulin (2.0-3.5) g/dL Albumin/Globulin Ratio (1.3-2.8) Triglycerides (10-190) mg/dL Cholesterol (131-240) mg/dL LDL Cholesterol, Calc (60-180) mg/dL VLDL Cholesterol (5-55) mg/dL HDL Cholesterol (40-80) mg/dL Cholesterol/HDL Ratio (3.3-6.0) IRENE Results - Last 24 hrs: Microbiology 04/04/17 09:30 Stool Occult Blood (IRENE) - Final Stool / Feces - Stool, Liquid Med Orders - Current: Current Medications Acetaminophen (Tylenol) 650 mg PO Q4H PRN PRN Reason: Pain (Mild 1-3)/fever Bisacodyl (Dulcolax) 5 mg PO DAILY PRN PRN Reason: Constipation Levofloxacin/Dextrose 750 mg/ (Premix) 150 mls @ 100 mls/hr IV Q24H REPLACED BY [facility] Insulin Aspart (Novolog) 0 unit SUBCUT ACBED REPLACED BY [facility] PRN Reason: Protocol Last Admin: 04/04/17 06:30 Dose: Not Given Lorazepam (Ativan) 1 mg IV Q6H PRN PRN Reason: Anxiety Last Admin: 04/04/17 00:53 Dose: 1 mg Metformin HCl (Glucophage) 750 mg PO BIDMEALS REPLACED BY [facility] Last Admin: 04/04/17 07:27 Dose: 750 mg Ondansetron HCl (Zofran) 4 mg IVPUSH Q4H PRN PRN Reason: Nausea Last Admin: 04/04/17 05:10 Dose: 4 mg Oxycodone/Acetaminophen (Percocet 325-5 Mg) 1 - 2 tab PO Q6H PRN PRN Reason: Pain Last Admin: 04/04/17 10:16 Dose: 2 tab Simvastatin (Zocor) 20 mg PO BEDTIME REPLACED BY [facility] Last Admin: 04/03/17 20:09 Dose: 20 mg Sodium Chloride (Saline Flush) 10 ml FLUSH ASDIRECTED PRN PRN Reason: Keep Vein Open Last Admin: 04/03/17 16:31 Dose: 10 ml Sodium Chloride (Saline Flush) 2.5 ml FLUSH ASDIRECTED PRN PRN Reason: Keep Vein Open Last Admin: 04/03/17 16:31 Dose: 2.5 ml Temazepam (Restoril) 15 mg PO BEDTIME PRN PRN Reason: Sleep Discontinued Medications Al Hydroxide/Mg Hydroxide 15 ml/ Metoclopramide HCl 5 mg/Lidocaine HCl 5 ml 0 ml PO ONETIME ONE Stop: 04/04/17 08:59 Last Admin: 04/04/17 09:36 Dose: 15 each Hydromorphone HCl (Dilaudid) 1 mg IVPUSH ONETIME ONE Stop: 04/03/17 18:03 Last Admin: 04/03/17 18:07 Dose: 1 mg Hydromorphone HCl (Dilaudid) 1 mg IVPUSH Q2H PRN PRN Reason: Pain Last Admin: 04/04/17 08:21 Dose: 1 mg Sodium Chloride (Normal Saline) 1,000 mls @ 999 mls/hr IV STAT ONE Stop: 04/03/17 17:22 Last Admin: 04/03/17 16:24 Dose: 999 mls/hr Sodium Chloride (Normal Saline) 1,000 mls @ 999 mls/hr IV .Bolus ONE Stop: 04/03/17 18:26 Last Admin: 04/03/17 17:27 Dose: 999 mls/hr Levofloxacin/Dextrose 750 mg/ (Premix) 150 mls @ 100 mls/hr IV ONETIME ONE Stop: 04/03/17 20:28 Last Admin: 04/03/17 19:38 Dose: 100 mls/hr Magnesium Sulfate 2 gm/ Premix 50 mls @ 50 mls/hr IV ONETIME ONE Stop: 04/04/17 09:59 Last Admin: 04/04/17 09:20 Dose: 50 mls/hr Iopamidol (Isovue Multipack-370 (76%)) 50 ml IVPUSH ONETIME STA Stop: 04/03/17 17:29 Last Admin: 04/03/17 17:29 Dose: 50 ml Ketorolac Tromethamine (Toradol) 30 mg IVPUSH ONETIME ONE Stop: 04/03/17 17:20 Last Admin: 04/03/17 17:23 Dose: 30 mg Lorazepam (Ativan) 1 mg IVPUSH ONETIME ONE Stop: 04/03/17 16:23 Last Admin: 04/03/17 16:29 Dose: 1 mg Ondansetron HCl (Zofran) 4 mg IVPUSH ONETIME ONE Stop: 04/03/17 17:27 Last Admin: 04/03/17 17:30 Dose: 4 mg - Exam General: Reports: Alert, Oriented, Cooperative, No Acute Distress HEENT: Reports: Pupils Equal, Pupils Reactive Neck: Reports: Supple Lungs: Reports: Clear to Auscultation, Normal Respiratory Effort Cardiovascular: Reports: Regular Rate, Regular Rhythm, No Murmurs. Denies: Tachycardia GI/Abdominal Exam: Normal Bowel Sounds, Soft, No Abnormal Bruit, No Mass, Pelvis Stable, Tender (LUQ and mid L lower abdomen) Extremities: Normal Inspection, Normal Range of Motion, Non-Tender, No Pedal Edema, Normal Capillary Refill Skin: Reports: Warm, Dry, Intact Neurological: Reports: No New Focal Deficit Psy/Mental Status: Reports: Alert, Normal Affect, Normal Mood *Q Meaningful Use (DIS) - VTE *Q VTE Criteria *Q: - Stroke *Q Stroke Criteria *Q: - AMI *Q AMI Criteria *Q:
[2017-04-04] MEDS ORDERED: HYDROmorphone 1 MG/ML Syringe IVPUSH ONE ×2 (11:49→14:00)
[2017-04-04] MEDS ORDERED: Pantoprazole 40 MG in Sodium Chloride 0.9% 10 ML IVPUSH ONE ×2 (12:54→14:00)
[2017-04-04] MEDS ORDERED: Sucralfate Suspension 1 GM/10 ML Cup PO ONE (12:54)
[2017-04-04 16:09] VITALS: BP 132/90
--- NOTE | 2017-04-04 16:09 | CR ---
EXAM DATE: 04/03/17 PATIENT'S AGE: 36 Patient: SINGH GERONIMO Facility: [place], [place] Site . Site : 1980 Study: XRay Chest [id number]/20/2017 5:05:46 PM Ordering Physician: Yuliana Durand Final Report: INDICATION: Chest pain and shortness of breath. TECHNIQUE: Chest 1 views. COMPARISON: March 12, 2017. FINDINGS: Cardiovascular and mediastinum: Heart size and vasculature are normal in caliber and appearance. Mediastinum is within normal limits. Lungs and pleural spaces: Lungs are clear. No sign of infiltrate or mass. No sign of pleural effusion. No pneumothorax. Bones and soft tissues: No significant findings. IMPRESSION: Normal chest. Dictated by Jean Granados MD @ 04/03/2017 5:13:19 PM Dictated by: Jean Granados MD @ 04/03/2017 17:13:27 (Electronic Signature) Report Signed by Proxy. [facility]
--- NOTE | 2017-04-04 16:15 | CT ---
EXAM DATE: 04/03/17 PATIENT'S AGE: 36 Patient: SINGH GERONIMO Facility: [place], [place] Site . Site : 1980 Study: CT Chest Angio [id number]/20/2017 6:07:52 PM Ordering Physician: Yuliana Durand Final Report: INDICATION: Sudden onset of shortness of breath and chest pain. TECHNIQUE: CT chest pulmonary PE protocol acquired with IV contrast. COMPARISON: March 10, 2017. FINDINGS: CARDIOVASCULAR STRUCTURES: Normal vascular enhancement of the pulmonary arteries , no sign of pulmonary embolism. Heart size is normal. No sign of aneurysm or dissection in the thoracic aorta. Stable pericardial cysts. MEDIASTINUM/MITA: There are a few mildly enlarged mediastinal lymph nodes. These are similar to the prior exam. Normal thyroid gland. LUNGS/PLEURA: There are 2 small adjacent ground-glass opacities in the left upper lobe. Remainder of the lungs and pleural spaces are clear. No effusions. CHEST WALL/AXILLA: No mass or adenopathy. UPPER ABDOMEN: Unremarkable. BONES: No significant findings. IMPRESSION: 1. No sign of pulmonary embolism. 2. Small areas of pneumonitis are present in the left upper lobe. 3. No other finding to explain chest pain or shortness of breath. Dictated by Jean Granados MD @ 04/03/2017 6:51:33 PM Dictated by: Jean Granados MD @ 04/03/2017 18:51:40 (Electronic Signature) Report Signed by Proxy. [facility]
--- NOTE | 2017-04-04 16:16 | CT ---
EXAM DATE: 04/03/17 PATIENT'S AGE: 36 Patient: SINGH GERONIMO Facility: [place], [place] Site . Site : 1980 Study: CT Abdomen/Pelvis [id number]/20/2017 6:16:35 PM Ordering Physician: Yuliana Durand Final Report: INDICATION: Sudden onset of pain and shortness of breath. TECHNIQUE: CT abdomen and pelvis acquired with IV contrast. COMPARISON: March 10, 2017. FINDINGS: LOWER CHEST: Unremarkable. LIVER: Unremarkable. Normal in size and attenuation. No masses. GALLBLADDER AND BILE DUCTS: Status post cholecystectomy. PANCREAS: Unremarkable. No mass or inflammation. SPLEEN: Unremarkable. Normal in size. No masses. ADRENAL GLANDS: There are 2 small low-attenuation left adrenal nodules which are unchanged and consistent with adenomas. Normal right adrenal gland. KIDNEYS: Unremarkable. No masses, stones, or hydronephrosis. GI TRACT: Unremarkable. Normal in caliber. No sign of mass or inflammation. Normal appendix. VASCULATURE: Unremarkable. LYMPH NODES: No lymphadenopathy. OMENTUM/PERITONEUM/ABDOMINAL WALL: Unremarkable. No sign of mass or infiltration. No free air or significant free fluid. PELVIS: There is a small simple cyst or dominant follicle in the right ovary. Otherwise unremarkable pelvis. BONES: Moderate left hip joint osteoarthritis is present. No other significant finding. IMPRESSION: No acute or significant findings to explain abdominal pain. Dictated by Jean Granados MD @ 04/03/2017 7:00:01 PM Dictated by: Jean Granados MD @ 04/03/2017 19:00:04 (Electronic Signature) Report Signed by Proxy. GAIL
[2017-04-04] MEDS ORDERED: Levofloxacin/Dextrose 5%-Water 750 MG in Premix Bag 1 BAG IV SCH (19:00)
== END 2017-04-04 14:15 | disposition home or self-care (01) ==
LOC: MW.ED 16:07 → MW.MS 18:38
PROVIDERS: ADMIT Family Medicine; ATTEND Family Medicine
DX: R07.89 Other chest pain (principal); J18.9 Pneumonia, unspecified organism; E11.9 Type 2 diabetes mellitus without complications; G89.29 Other chronic pain; M25.552 Pain in left hip; K29.60 Other gastritis without bleeding; E66.9 Obesity, unspecified; R09.1 Pleurisy; M19.90 Unspecified osteoarthritis, unspecified site; M10.9 Gout, unspecified; F17.210 Nicotine dependence, cigarettes, uncomplicated; Z79.84 Long term (current) use of oral hypoglycemic drugs; Z79.899 Other long term (current) drug therapy; Z88.5 Allergy status to narcotic agent; Z90.49 Acquired absence of other specified parts of digestive tract; Z98.890 Other specified postprocedural states; Z82.49 Family history of ischemic heart disease and other diseases of the circulatory system
CPT/HCPCS: 36415; 71010; 71275; 74177; 80053; 80061; 82272; 82962; 83036; 83690; 83735; 84484; 85025; 85610; 86677; 87046; 87338; 87899; 93005; 96361; 96374; 96375; 96376; 99285; A9270; C9113; G0378; J1170; J1885; J1956; J2060; J2405; J3475; J7040; Q9967; 99283

== ENCOUNTER 2017-06-09 12:06 | Day surgery (SDC) | payer BC ==
[~2017-06-09 12:06] MED LIST: Lactated Ringers 1,000 ML IV SCH; Sodium Chloride 0.9% 10 ML Syringe FLUSH PRN; Sodium Chloride 0.9% 2.5 ML Syringe FLUSH PRN
--- NOTE | 2017-06-09 13:01 | PCM.PREANE ---
Preanesthetic Assessment - Anesthesia/Transfusion/Family Hx Anesthesia History: Prior Anesthesia Without Reaction Family History of Anesthesia Reaction: No Transfusion History: No Prior Transfusion(s) Intubation History: Unknown - Review of Systems General: No Symptoms Pulmonary: No Symptoms Cardiovascular: No Symptoms Gastrointestinal: No Symptoms, Other (BRBPR) Neurological: No Symptoms Other: Reports: None - Physical Assessment O2 Sat by Pulse Oximetry: 99 Respiratory Rate: 16 Vital Signs: Last Vital Signs Temp 36.3 C 06/09/17 12:18 Pulse 120 H 06/09/17 12:18 Resp 16 06/09/17 12:18 BP 134/78 06/09/17 12:18 Pulse Ox 99 06/09/17 12:18 Height: 1.68 m Weight: 100.244 kg ASA Class: 2 Mental Status: Alert & Oriented x3 Airway Class: Mallampati = 2 Dentition: Reports: Normal Dentition Thyro-Mental Finger Breadths: 2 Mouth Opening Finger Breadths: 2 ROM/Head Extension: Full Lungs: Clear to Auscultation, Normal Respiratory Effort Cardiovascular: Regular Rate, Regular Rhythm - Lab Values: Laboratory Last Values Urine HCG, Qual NEGATIVE (NEGATIVE) 06/09/17 12:10 - Allergies Allergies/Adverse Reactions: Allergies Allergy/AdvReac Type Severity Reaction Status Date / Time hydrocodone Allergy Hives Verified 06/06/17 14:43 lobster Allergy Severe Anaphylactic Uncoded 06/06/17 14:43 Shock - Blood Blood Available: No - Anesthesia Plan Pre-Op Medication Ordered: None - Acknowledgements Anesthesia Type Planned: MAC Pt an Appropriate Candidate for the Planned Anesthesia: Yes Alternatives and Risks of Anesthesia Discussed w Pt/Guardian: Yes Pt/Guardian Understands and Agrees with Anesthesia Plan: Yes PreAnesthesia Questionnaire - Past Health History Medical/Surgical History: Denies Medical/Surgical History HEENT History: Reports: None Cardiovascular History: Reports: High Cholesterol (controlled with medications) Other Cardiovascular History: hx of "hole in heart" Respiratory History: Reports: None Gastrointestinal History: Reports: GERD Genitourinary History: Reports: None 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 DEVELOPER History: Reports: Musculoskeletal History: Reports: Fracture, Other (See Below) (h/o gout) Other Musculoskeletal History: hx of fx feet, hands arms Neurological History: Reports: None Psychiatric History: Reports: Anxiety Endocrine/Metabolic History: Reports: Diabetes, Type II (A1C normal), Obesity/ BMI 30+ Hematologic History: Reports: None Immunologic History: Reports: None Oncologic (Cancer) History: Reports: None Dermatologic History: Reports: None - Infectious Disease History Infectious Disease History: Reports: Chicken Pox - Past Surgical History Head Surgeries/Procedures: Reports: None HEENT Surgical History: Reports: None Cardiovascular Surgical History: Reports: Other (See Below) Other Cardiovascular Surgeries/Procedures: repair of hole in heart at age 8 Respiratory Surgical History: Reports: None GI Surgical History: Reports: Cholecystectomy Female Surgical History: Reports: Section Endocrine Surgical History: Reports: None Neurological Surgical History: Reports: None Musculoskeletal Surgical History: Reports: Arthroscopic Procedure Other Musculoskeletal Surgeries/Procedures:: repair of labral tear in left hip Oncologic Surgical History: Reports: None Dermatological Surgical History: Reports: None - SUBSTANCE USE Smoking Status *Q: Current Every Day Smoker (4-5 cigarettes per day) Tobacco Use Within Last Twelve Months: Cigarettes Second Hand Smoke Exposure: No Recreational Drug Use History: No - HOME MEDS Home Medications: Home Meds metFORMIN HCl [Metformin HCl ER] 1,500 mg PO BEDTIME 08/02/15 [History] Simvastatin [Zocor] 20 mg PO BEDTIME 03/10/17 [History] ALPRAZolam [Alprazolam] 0.5 mg PO TID PRN 04/03/17 [History] Citalopram [Celexa] 20 mg PO DAILY 04/03/17 [History] Acetaminophen/oxyCODONE [Percocet 325-5 MG] 1 - 2 tab PO Q6H PRN #20 tablet [Rx] Cyclobenzaprine [Flexeril] 10 mg PO BEDTIME 06/06/17 [History] Metoclopramide HCl 10 mg PO TIDMEALS 06/06/17 [History] Ondansetron [Ondansetron ODT] 4 mg PO Q4H PRN 06/06/17 [History] cloNIDine [Catapres] 0.1 mg PO TID PRN 06/06/17 [History] traMADol [Ultram] 50 - 100 mg PO TID PRN 06/06/17 [History] - CURRENT (IN HOUSE) MEDS Current Meds: Current Medications Lactated Ringer's (Ringers, Lactated) 1,000 mls @ 125 mls/hr IV ASDIRECTED LAURIE Last Admin: 06/09/17 12:23 Dose: 125 mls/hr Sodium Chloride (Saline Flush) 10 ml FLUSH ASDIRECTED PRN PRN Reason: Keep Vein Open Sodium Chloride (Saline Flush) 2.5 ml FLUSH ASDIRECTED PRN PRN Reason: Keep Vein Open
[2017-06-09] MEDS ORDERED: Propofol 200 MG/20 ML SDV ONE ×2 (13:41→14:02)
[2017-06-09] MEDS ORDERED: Lidocaine 2% 5 ML SDV ONE (13:41)
[2017-06-09] MEDS ORDERED: Midazolam 1 MG/ML 2 ML SDV ONE (13:53)
--- NOTE | 2017-06-09 14:18 | PCM.OPNOTE ---
- General Post-Op/Procedure Note Date of Surgery/Procedure: 06/09/17 Operative Procedure(s): Diagnostic EGD and colonoscopy Findings: Normal EGD and colonoscopy Pre Op Diagnosis: Abdominal pain Post-Op Diagnosis: same Anesthesia Technique: MAC Primary Surgeon: Amna Coats Condition: Good
--- NOTE | 2017-06-09 14:44 | PCM48HPAN ---
Post Anesthesia Note - EVALUATION WITHIN 48HRS OF ANESTHETIC Vital Signs in Normal Range: Yes Patient Participated in Evaluation: Yes Respiratory Function Stable: Yes Airway Patent: Yes Cardiovascular Function Stable: Yes Hydration Status Stable: Yes Pain Control Satisfactory: Yes Nausea and Vomiting Control Satisfactory: Yes Mental Status Recovered: Yes - COMMENTS/OBSERVATIONS Free Text/Narrative:: no anesthesia problems, patient skipped recovery room phase of postoperative care
[2017-06-09 14:47] VITALS: BP 126/84
--- NOTE | 2017-06-09 20:25 | OR ---
SURGEON: ANITA GODINEZ MD DATE OF PROCEDURE: 06/09/2017 PREOPERATIVE DIAGNOSES: Abdominal pain and change in bowel habits. POSTOPERATIVE DIAGNOSES: Normal esophagogastroduodenoscopy and colonoscopy. PROCEDURE PERFORMED: Diagnostic esophagogastroduodenoscopy and colonoscopy. INSTRUMENT USED: Olympus colonoscope and Olympus endoscope. EXTENT OF EXAM: To the second portion of duodenum, to the cecum. ANESTHESIA: MAC. PREPARATION: Good. LIMITATIONS: None. INDICATION FOR EXAMINATION: The patient is a 36-year-old female, who presents with a several month history of left upper quadrant pain. She has had multiple tests done that have shown no etiology for this pain. She has lost 10 pounds, had a lack of appetite and has had a change in her bowel habits secondary to this. After a long discussion, the decision was made to perform a diagnostic EGD and colonoscopy in order to directly visualize the gastrointestinal tract for any specific etiology of her pain. We discussed the procedures as well as expected perioperative course. We discussed the risks, including bleeding, infection, damage to surrounding structures, including perforation. The patient verbalized understanding and wishes to proceed. PROCEDURE IN DETAIL: The patient was brought to the endoscopy suite and placed in a beach-chair position. A time-out was completed verifying the patient's name, age, date of , allergies, and procedure to be performed. A bite-block was placed in the patient's mouth. Monitored anesthesia care was induced and continuous oxygen was provided via nasal cannula. After adequate sedation was achieved, a well- lubricated endoscope was placed in the patient's mouth and advanced under direct visualization to the second portion of duodenum. This appeared normal and a photograph was taken. The scope was then fully withdrawn while examining the color, texture, anatomy, and integrity of the mucosa of the upper GI tract. The duodenal mucosa appeared normal. The scope was brought into the stomach and a photograph was taken of the pylorus as well as the esophageal hiatus. These both appeared normal. The gastric mucosa had no evidence of ulceration or inflammation. Biopsies were taken of the gastric body, antrum, and fundus and sent for H. pylori testing. The scope was then brought into the distal esophagus and the GE junction inspected. This appeared normal and there was no evidence of inflammation to suggest reflux. The esophageal mucosa appeared normal. The scope was then removed from the patient. This portion of the procedure terminated. The patient was placed in a left lateral decubitus position. A digital rectal exam was performed. This exam was within normal limits. A well-lubricated colonoscope was inserted in the rectum, advanced under direct visualization to the level of cecum. The cecum was identified by both visual and anatomic landmarks. I took a photograph of the cecal cap. I was unable to retroflex the scope within the cecum due to significant looping more proximally. The scope was then fully withdrawn while examining the color, texture, anatomy, and integrity of the mucosa from the cecum to the anal canal. These findings were consistent with normal colonic mucosa. The scope was then brought into the rectum and retroflexed to allow visualization of the anal canal opening. This appeared normal and a photograph was taken. The scope was then straightened out and removed from the patient. The cecum to anus time was 8 minutes. The patient tolerated the procedure well and was taken to PACU in stable condition. ENDOSCOPIC DIAGNOSES: Normal esophagogastroduodenoscopy and colonoscopy. RECOMMENDATIONS: Follow up in clinic in 2 weeks for discussion of further workup of this patient's pain. JASWINDER GAYTAN /[id number]
== END 2017-06-09 14:45 | disposition home or self-care (01) ==
LOC: MW.SDS 12:06
PROVIDERS: ATTEND Surgery
DX: R10.12 Left upper quadrant pain (principal); F11.23 Opioid dependence with withdrawal; F41.9 Anxiety disorder, unspecified; M16.0 Bilateral primary osteoarthritis of hip; K31.84 Gastroparesis; E66.9 Obesity, unspecified; F17.210 Nicotine dependence, cigarettes, uncomplicated; E11.9 Type 2 diabetes mellitus without complications; F32.9 Major depressive disorder, single episode, unspecified; M10.9 Gout, unspecified; E78.00 Pure hypercholesterolemia, unspecified; Z80.0 Family history of malignant neoplasm of digestive organs; Z88.5 Allergy status to narcotic agent; Z91.013 Allergy to seafood; Z79.84 Long term (current) use of oral hypoglycemic drugs; Z79.899 Other long term (current) drug therapy; Z98.890 Other specified postprocedural states; Z90.49 Acquired absence of other specified parts of digestive tract; Z68.35 Body mass index [BMI] 35.0-35.9, adult
CPT/HCPCS: 43239; 45378; 81025; 88305; 88312; J2250; J7120; J2704

== ENCOUNTER 2017-07-27 17:44 | Emergency (ER) | payer BC ==
[2017-07-27] MEDS ORDERED: Sodium Chloride 0.9% 1,000 ML IV ONE (18:04)
[2017-07-27] MEDS ORDERED: LORazepam 2 MG/ML SDV IVPUSH ONE (18:15)
[2017-07-27] MEDS ORDERED: Pantoprazole 40 MG Vial IVPUSH ONE (18:15)
[2017-07-27] MEDS ORDERED: Alum Hydrox/Mag Hydrox/Simeth 15 ML, Metoclopramide 5 MG, Lidocaine 2% 5 ML PO ONE ×3 (18:16)
--- NOTE | 2017-07-27 18:18 | EDM.PDOC ---
ED HPI GENERAL MEDICAL PROBLEM - General Chief Complaint: Chest Pain Stated Complaint: CHETS PAIN Time Seen by Provider: 07/27/17 18:16 Source of Information: Reports: Patient - History of Present Illness INITIAL COMMENTS - FREE TEXT/NARRATIVE: HISTORY AND PHYSICAL: History of present illness: 36-year-old female presents with chest pain radiating to left shoulder, she has history of anxiety which compounds the chest pain. She relates pain starting after cholecystectomy, she has had 2 admissions for similar pain the last admission was 2 months prior. Currently rates pain up to a 10 out of 10 worsened by movement of the left shoulder girdle as well as palpation of left anterior chest wall and deep breathing At current she is not in any distress she has chest discomfort, she is tearful appears quite anxious she states she did vomit on the way here No fever no current nausea shortness of breath headache dizziness or palpitation no bowel or urine symptoms Review of systems: As per history of present illness and below otherwise all systems reviewed and negative. Past medical history: As per history of present illness and as reviewed below otherwise noncontributory. Surgical history: As per history of present illness and as reviewed below otherwise noncontributory. Social history: No reported history of drug or alcohol abuse. Family history: As per history of present illness and as reviewed below otherwise noncontributory. Physical exam: HEENT: Atraumatic, normocephalic, pupils reactive, negative for conjunctival pallor or scleral icterus, mucous membranes moist, throat clear, neck supple, nontender, trachea midline. Lungs: Clear to auscultation, breath sounds equal bilaterally, chest nontender on the left. Heart: S1S2, regular, negative for clicks, rubs, or JVD. Abdomen: Soft, nondistended, nontender. Negative for masses or hepatosplenomegaly. Negative for costovertebral tenderness. Pelvis: Stable nontender. Genitourinary: Deferred. Rectal: Deferred. Extremities: Atraumatic, negative for cords or calf pain. Neurovascular unremarkable. Neuro: Awake, alert, oriented. Cranial nerves II through XII unremarkable. Cerebellum unremarkable. Motor and sensory unremarkable throughout. Exam nonfocal. Diagnostics: []CBC CMP troponin lipase Therapeutics: []1 L normal saline bolus Ativan 1 mg IV Protonix 80 mg IV GI cocktail Some improvement with above I will have to endorse patient to Dr. Gillis for further treatment and disposition as lab is pending at shift change Impression: Anxiety Reproducible chest wall pain Sinus tachycardia []Chest pain/epigastric pain Chronic hip pain Definitive disposition and diagnosis as appropriate pending reevaluation and review of above. Chest Pain Score (Numeric/FACES): 10 - Related Data Allergies Allergy/AdvReac Type Severity Reaction Status Date / Time hydrocodone Allergy Hives Verified 06/06/17 14:43 lobster Allergy Severe Anaphylactic Uncoded 07/27/17 18:02 Shock Home Meds: Home Meds Simvastatin [Zocor] 20 mg PO BEDTIME 03/10/17 [History] ALPRAZolam [Alprazolam] 0.5 mg PO TID PRN 04/03/17 [History] Citalopram [Celexa] 20 mg PO DAILY 04/03/17 [History] Cyclobenzaprine [Flexeril] 10 mg PO BEDTIME 06/06/17 [History] ALPRAZolam [Xanax] 1 tab PO Q6HR PRN 07/27/17 [History] Acetaminophen/oxyCODONE [Percocet 325-5 MG] 1 tab PO Q6H PRN 07/27/17 [History] oxyCODONE HCl/Acetaminophen [Oxycodon-Acetaminophen 7.5-300] 1 - 2 tab PO [id number] PRN 07/27/17 [History] Past Medical History - Past Health History Medical/Surgical History: Denies Medical/Surgical History HEENT History: Reports: None Cardiovascular History: Reports: Congenital Septal Defect, High Cholesterol Other Cardiovascular History: hx of "hole in heart" Respiratory History: Reports: None Gastrointestinal History: Reports: GERD Genitourinary History: Reports: None ADVANCE SCOUT History: Reports: Musculoskeletal History: Reports: Fracture, Other (See Below) Other Musculoskeletal History: hx of fx feet, hands arms Neurological History: Reports: None Psychiatric History: Reports: Anxiety Endocrine/Metabolic History: Reports: Diabetes, Type II, Obesity/BMI 30+ Hematologic History: Reports: None Immunologic History: Reports: None Oncologic (Cancer) History: Reports: None Dermatologic History: Reports: None - Infectious Disease History Infectious Disease History: Reports: Chicken Pox - Past Surgical History Head Surgeries/Procedures: Reports: None HEENT Surgical History: Reports: None Cardiovascular Surgical History: Reports: Other (See Below) Other Cardiovascular Surgeries/Procedures: repair of hole in heart at age 8 Respiratory Surgical History: Reports: None GI Surgical History: Reports: Cholecystectomy Female Surgical History: Reports: Section Endocrine Surgical History: Reports: None Neurological Surgical History: Reports: None Musculoskeletal Surgical History: Reports: Arthroscopic Procedure Other Musculoskeletal Surgeries/Procedures:: repair of labral tear in left hip Oncologic Surgical History: Reports: None Dermatological Surgical History: Reports: None Social & Family History - Family History Family Medical History: Noncontributory Cardiac: Reports: Other (See Below) Other Cardiac Family History: heart disease Respiratory: Reports: Asthma Endocrine/Metabolic: Reports: Diabetes, type II Hematologic: Reports: Other (See Below) Other Hematologic Family History: excessive bleeding Oncologic: Reports: Colon, Ovarian - Tobacco Use Smoking Status *Q: Current Every Day Smoker Years of Tobacco use: 18 Packs/Tins Daily: 0.5 Used Tobacco, but Quit: No Second Hand Smoke Exposure: No - Caffeine Use Caffeine Use: Reports: Coffee, Soda Caffeine Use Comment: 2drinks/day - Recreational Drug Use Recreational Drug Use: No Drug Use in Last 12 Months: No ED ROS GENERAL - Review of Systems Review Of Systems: ROS reveals no pertinent complaints other than HPI. ED EXAM, GENERAL - Physical Exam Exam: See Below Course - Vital Signs Last Recorded V/S: Last Vital Signs Temp 97.2 F 07/27/17 18:10 Pulse 127 H 07/27/17 18:10 Resp 24 H 07/27/17 18:10 BP 140/100 H 07/27/17 18:10 Pulse Ox 100 07/27/17 18:10 - Orders/Labs/Meds Orders: Active Orders 24 hr Category Date Time Status EKG Documentation Completion [RC] STAT Care 07/27/17 18:07 Active Chest 1V Frontal [CR] Stat Exams 07/27/17 18:08 Ordered COMPREHENSIVE METABOLIC PN,CMP [CHEM] Stat Lab 07/27/17 18:14 Results DRUG SCREEN, URINE [URCHEM] Stat Lab 07/27/17 18:05 Uncollected HCG QUALITATIVE,URINE [URCHEM] Stat Lab 07/27/17 18:04 Uncollected TROPONIN I [CHEM] Stat Lab 07/27/17 18:14 Results TSH [CHEM] Stat Lab 07/27/17 18:14 Results UA W/MICROSCOPIC [URIN] Stat Lab 07/27/17 18:04 Uncollected Sodium Chloride 0.9% [Normal Saline] 1,000 ml Med 07/27/17 18:04 Active IV STAT Medication Orders Sodium Chloride (Normal Saline) 1,000 mls @ 999 mls/hr IV STAT ONE Stop: 07/27/17 19:04 Last Admin: 07/27/17 18:40 Dose: 999 mls/hr Labs: Laboratory Tests 07/27/17 07/27/17 07/27/17 Range/Units 18:14 18:14 18:14 WBC 12.36 H (4.0-11.0) K/uL RBC 4.68 (4.30-5.90) M/uL Hgb 14.8 (12.0-16.0) g/dL Hct 43.9 (36.0-46.0) % MCV 93.8 (80.0-98.0) fL MCH 31.6 (27.0-32.0) pg MCHC 33.7 (31.0-37.0) g/dL RDW Std Deviation 46.4 (28.0-62.0) fl RDW Coeff of Mirlande 14 (11.0-15.0) % Plt Count 379 (150-400) K/uL MPV 8.10 (7.40-12.00) fL Add Manual Diff YES Neutrophils % (Manual) 63 (48.0-80.0) % Lymphocytes % (Manual) 32 (16.0-40.0) % Monocytes % (Manual) 3 (0.0-15.0) % Eosinophils % (Manual) 2 (0.0-7.0) % Nucleated RBC % 0.0 /100WBC Absolute Seg Neuts 7.8 H (1.4-5.7) Lymphocytes # (Manual) 4.0 H (0.6-2.4) Monocytes # (Manual) 0.4 (0.0-0.8) Eosinophils # (Manual) 0.2 (0.0-0.7) Nucleated RBCs # 0 K/uL D-Dimer, Quantitative (0.0-0.52) mg/LFEU Sodium 138 (136-146) mmol/L Potassium 4.0 (3.5-5.1) mmol/L Chloride 103 (98-110) mmol/L Carbon Dioxide 23 (21-31) mmol/L BUN 4 L (6.0-23.0) mg/dL Creatinine 0.7 (0.6-1.5) mg/dL Est Cr Clr Drug Dosing TNP Estimated GFR (MDRD) > 60.0 ml/min Glucose 128 H (60-110) mg/dL Calcium 9.8 (8.8-10.8) mg/dL Total Bilirubin 0.4 (0.1-1.5) mg/dL AST 23 (5-40) IU/L ALT 31 (8-54) IU/L Alkaline Phosphatase 110 (40-150) Total Protein 7.9 (6.0-8.0) g/dL Albumin 4.5 (3.5-5.0) g/dL Globulin 3.4 (2.0-3.5) g/dL Albumin/Globulin Ratio 1.3 (1.3-2.8) Amylase 67 (10-90) U/L Lipase 18 (7-80) U/L 12/13/17 Range/Units 18:14 WBC (4.0-11.0) K/uL RBC (4.30-5.90) M/uL Hgb (12.0-16.0) g/dL Hct (36.0-46.0) % MCV (80.0-98.0) fL MCH (27.0-32.0) pg MCHC (31.0-37.0) g/dL RDW Std Deviation (28.0-62.0) fl RDW Coeff of Mirlande (11.0-15.0) % Plt Count (150-400) K/uL MPV (7.40-12.00) fL Add Manual Diff Neutrophils % (Manual) (48.0-80.0) % Lymphocytes % (Manual) (16.0-40.0) % Monocytes % (Manual) (0.0-15.0) % Eosinophils % (Manual) (0.0-7.0) % Nucleated RBC % /100WBC Absolute Seg Neuts (1.4-5.7) Lymphocytes # (Manual) (0.6-2.4) Monocytes # (Manual) (0.0-0.8) Eosinophils # (Manual) (0.0-0.7) Nucleated RBCs # K/uL D-Dimer, Quantitative < 0.19 (0.0-0.52) mg/LFEU Sodium (136-146) mmol/L Potassium (3.5-5.1) mmol/L Chloride (98-110) mmol/L Carbon Dioxide (21-31) mmol/L BUN (6.0-23.0) mg/dL Creatinine (0.6-1.5) mg/dL Est Cr Clr Drug Dosing Estimated GFR (MDRD) ml/min Glucose (60-110) mg/dL Calcium (8.8-10.8) mg/dL Total Bilirubin (0.1-1.5) mg/dL AST (5-40) IU/L ALT (8-54) IU/L Alkaline Phosphatase (40-150) Total Protein (6.0-8.0) g/dL Albumin (3.5-5.0) g/dL Globulin (2.0-3.5) g/dL Albumin/Globulin Ratio (1.3-2.8) Amylase (10-90) U/L Lipase (7-80) U/L Meds: Medications Generic Name Dose Route Start Last Admin Trade Name Freq PRN Reason Stop Dose Admin Sodium Chloride 1,000 mls @ 999 mls/hr 07/27/17 18:04 07/27/17 18:40 Normal Saline IV 07/27/17 19:04 999 mls/hr STAT ONE Administration Discontinued Medications Generic Name Dose Route Start Last Admin Trade Name Freq PRN Reason Stop Dose Admin Al Hydroxide/Mg Hydroxide 15 0 ml 07/27/17 18:16 07/27/17 18:41 ml/ Metoclopramide HCl 5 mg/ PO 07/27/17 18:17 1 each Lidocaine HCl 5 ml ONETIME ONE Administration Lorazepam 1 mg 07/27/17 18:15 07/27/17 18:40 Ativan IVPUSH 07/27/17 18:16 1 mg ONETIME ONE Administration Pantoprazole Sodium 80 mg 07/27/17 18:15 07/27/17 18:41 Protonix Iv IVPUSH 07/27/17 18:16 80 mg .BOLUS ONE Administration Departure - Departure Time of Disposition: 19:00 Disposition: Still A Patient 30 Condition: Good Clinical Impression: Anxiety, Chest wall pain - Discharge Information Referrals: PCP,None [Primary Care Provider] - Forms: ED Department Discharge - My Orders Last 24 Hours: My Active Orders 07/27/17 18:04 HCG QUALITATIVE,URINE [URCHEM] Stat UA W/MICROSCOPIC [URIN] Stat Sodium Chloride 0.9% [Normal Saline] 1,000 ml IV STAT 07/27/17 18:05 DRUG SCREEN, URINE [URCHEM] Stat 07/27/17 18:07 EKG Documentation Completion [RC] STAT 07/27/17 18:08 Chest 1V Frontal [CR] Stat 07/27/17 18:14 COMPREHENSIVE METABOLIC PN,CMP [CHEM] Stat TROPONIN I [CHEM] Stat TSH [CHEM] Stat - Assessment/Plan Last 24 Hours: My Active Orders 07/27/17 18:04 HCG QUALITATIVE,URINE [URCHEM] Stat UA W/MICROSCOPIC [URIN] Stat Sodium Chloride 0.9% [Normal Saline] 1,000 ml IV STAT 07/27/17 18:05 DRUG SCREEN, URINE [URCHEM] Stat 07/27/17 18:07 EKG Documentation Completion [RC] STAT 07/27/17 18:08 Chest 1V Frontal [CR] Stat 07/27/17 18:14 COMPREHENSIVE METABOLIC PN,CMP [CHEM] Stat TROPONIN I [CHEM] Stat TSH [CHEM] Stat
[2017-07-27 18:46] LABS: CHLORIDE,CL 103 mmol/L (98-110); SODIUM,NA 138 mmol/L (136-146)
[2017-07-27 19:58] VITALS: BP 147/94
--- NOTE | 2017-07-28 08:54 | CR ---
EXAM DATE: 07/27/17 PATIENT'S AGE: 36 Patient: SINGH GERONIMO Facility: [place], [place] Site . Site : [id number] Study: XRay Chest [id number] 7:27:07 PM Ordering Physician: Brett Cohen Final Report: INDICATION: Chest pain TECHNIQUE: Chest radiograph 1 views COMPARISON: 04/29/17 FINDINGS: Mediastinum: The cardiac silhouette is normal in appearance and size. Mediastinum is within normal limits. Lungs: Both lungs are unremarkable in appearance. No sign of pleural effusion. No pneumothorax is seen. Bones and soft tissue: No significant findings. IMPRESSION: 1. No acute cardiopulmonary disease seen. Dictated by: Jono Duke MD @ 07/27/2017 19:38:14 (Electronic Signature) Report Signed by Proxy. [facility]
== END 2017-07-27 19:55 | disposition home or self-care (01) ==
LOC: MW.ED 17:44
DX: F41.9 Anxiety disorder, unspecified (principal); R07.89 Other chest pain; R00.0 Tachycardia, unspecified; M25.559 Pain in unspecified hip; G89.29 Other chronic pain; E78.00 Pure hypercholesterolemia, unspecified; E11.9 Type 2 diabetes mellitus without complications; F17.210 Nicotine dependence, cigarettes, uncomplicated; Z88.5 Allergy status to narcotic agent; Z79.899 Other long term (current) drug therapy
CPT/HCPCS: 36415; 71010; 80053; 82150; 83690; 84443; 84484; 85025; 85379; 93005; 96361; 96374; 96375; 99285; A9270; C9113; J2060; J7040; 99284

== ENCOUNTER 2017-08-18 10:15 | Inpatient (IN) | payer BC ==
[~2017-08-18 10:15] MED LIST changes: -Lactated Ringers 1,000 ML IV SCH; -Sodium Chloride 0.9% 10 ML Syringe FLUSH PRN; -Sodium Chloride 0.9% 2.5 ML Syringe FLUSH PRN; +ceFAZolin 2 GM in Premix Bag 1 BAG IV SCH
[2017-08-18] MEDS ORDERED: Midazolam 1 MG/ML 2 ML SDV ONE (11:08)
[2017-08-18] MEDS ORDERED: fentaNYL 100 MCG/2 ML SDV ONE ×2 (11:08→13:28)
[2017-08-18] MEDS ORDERED: Lidocaine 2% 5 ML SDV ONE (11:08)
[2017-08-18] MEDS ORDERED: fentaNYL 250 MCG/5 ML SDV ONE (11:08)
[2017-08-18] MEDS: Lactated Ringers 1,000 ML IV SCH ×2 (11:08→17:06)
[2017-08-18] MEDS ORDERED: Propofol 200 MG/20 ML SDV ONE ×2 (11:08→13:41)
[2017-08-18] MEDS ORDERED: Rocuronium 10 MG/ML 10 ML Syringe ONE (11:09)
[2017-08-18] MEDS ORDERED: Neostigmine Methylsulfate 1 MG/ML 5 ML Syringe ONE (11:09)
[2017-08-18] MEDS ORDERED: Ondansetron 4 MG/2 ML SDV ONE ×2 (11:09→13:47)
[2017-08-18] MEDS ORDERED: ePHEDrine 50 MG/ML SDV ONE (11:11)
--- NOTE | 2017-08-18 11:27 | PCM.PREANE ---
Preanesthetic Assessment - Anesthesia/Transfusion/Family Hx Anesthesia History: Prior Anesthesia Without Reaction Family History of Anesthesia Reaction: No Transfusion History: No Prior Transfusion(s) Intubation History: Unknown - Review of Systems General: No Symptoms Pulmonary: No Symptoms Cardiovascular: No Symptoms Gastrointestinal: No Symptoms Neurological: No Symptoms Other: Reports: None - Physical Assessment NPO Status Date: 08/17/17 Height: 1.68 m Weight: 98.43 kg ASA Class: 2 Mental Status: Alert & Oriented x3 Airway Class: Mallampati = 2 Dentition: Reports: Normal Dentition Lungs: Clear to Auscultation, Normal Respiratory Effort Cardiovascular: Regular Rate, Regular Rhythm - Lab Values: Laboratory Last Values Urine HCG, Qual NEGATIVE (NEGATIVE) 08/18/17 10:50 - Allergies Allergies/Adverse Reactions: Allergies Allergy/AdvReac Type Severity Reaction Status Date / Time hydrocodone Allergy Hives Verified 08/16/17 12:10 lobster Allergy Severe Anaphylactic Uncoded 07/27/17 18:02 Shock - Anesthesia Plan Pre-Op Medication Ordered: None - Acknowledgements Anesthesia Type Planned: General Anesthesia, Spinal Pt an Appropriate Candidate for the Planned Anesthesia: Yes Alternatives and Risks of Anesthesia Discussed w Pt/Guardian: Yes Pt/Guardian Understands and Agrees with Anesthesia Plan: Yes PreAnesthesia Questionnaire - Past Health History Medical/Surgical History: Denies Medical/Surgical History HEENT History: Reports: None Cardiovascular History: Reports: Congenital Septal Defect, High Cholesterol Other Cardiovascular History: hx of "hole in heart" Respiratory History: Reports: None Gastrointestinal History: Reports: None Genitourinary History: Reports: None 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: Musculoskeletal History: Reports: Fracture, Other (See Below) Other Musculoskeletal History: hx of fx feet, hand, and collarbone Neurological History: Reports: None Psychiatric History: Reports: Anxiety Endocrine/Metabolic History: Reports: Diabetes, Type II, Obesity/BMI 30+ Hematologic History: Reports: None Immunologic History: Reports: None Oncologic (Cancer) History: Reports: None Dermatologic History: Reports: None - Infectious Disease History Infectious Disease History: Reports: Chicken Pox - Past Surgical History Head Surgeries/Procedures: Reports: None HEENT Surgical History: Reports: None Cardiovascular Surgical History: Reports: Other (See Below) Other Cardiovascular Surgeries/Procedures: repair of hole in heart at age 8 Respiratory Surgical History: Reports: None GI Surgical History: Reports: Cholecystectomy Female Surgical History: Reports: Section Endocrine Surgical History: Reports: None Neurological Surgical History: Reports: None Musculoskeletal Surgical History: Reports: Arthroscopic Procedure Other Musculoskeletal Surgeries/Procedures:: repair of labral tear in left hip Oncologic Surgical History: Reports: None Dermatological Surgical History: Reports: None - SUBSTANCE USE Smoking Status *Q: Current Every Day Smoker Tobacco Use Within Last Twelve Months: Cigarettes Second Hand Smoke Exposure: No Recreational Drug Use History: No - HOME MEDS Home Medications: Home Meds Simvastatin [Zocor] 20 mg PO BEDTIME 03/10/17 [History] Citalopram [Celexa] 20 mg PO DAILY 04/03/17 [History] Cyclobenzaprine [Flexeril] 10 mg PO BEDTIME 06/06/17 [History] ALPRAZolam [Xanax] 1 tab PO Q6HR PRN 07/27/17 [History] oxyCODONE HCl/Acetaminophen [Oxycodon-Acetaminophen 7.5-300] 1 - 2 tab PO ASDIRECTED PRN 07/27/17 [History] metFORMIN HCl [Metformin HCl ER] 1,500 mg PO BEDTIME 08/16/17 [History] - CURRENT (IN HOUSE) MEDS Current Meds: Current Medications Lactated Ringer's (Ringers, Lactated) 1,000 mls @ 125 mls/hr IV ASDIRECTED LAURIE Last Admin: 08/18/17 11:08 Dose: 125 mls/hr Cefazolin Sodium/Dextrose 2 gm (/ Premix) 50 mls @ 50 mls/hr IV ONETIME LAURIE Discontinued Medications Ephedrine Sulfate (Ephedrine Sulfate) Confirm Administered Dose 100 mg .ROUTE .STK-MED ONE Stop: 08/18/17 11:12 Fentanyl (Sublimaze) Confirm Administered Dose 100 mcg .ROUTE .STK-MED ONE Stop: 08/18/17 11:09 Fentanyl (Sublimaze) Confirm Administered Dose 250 mcg .ROUTE .STK-MED ONE Stop: 08/18/17 11:09 Glycopyrrolate () Confirm Administered Dose 1 mg .ROUTE .STK-MED ONE Stop: 08/18/17 11:10 Lidocaine (Xylocaine-Mpf 2%) Confirm Administered Dose 10 ml .ROUTE .STK-MED ONE Stop: 08/18/17 11:09 Midazolam HCl (Versed 1 Mg/Ml) Confirm Administered Dose 2 mg .ROUTE .STK-MED ONE Stop: 08/18/17 11:09 Neostigmine Methylsulfate (Neostigmine) Confirm Administered Dose 5 mg .ROUTE .STK-MED ONE Stop: 08/18/17 11:10 Ondansetron HCl (Zofran) Confirm Administered Dose 4 mg .ROUTE .STK-MED ONE Stop: 08/18/17 11:10 Propofol (Diprivan 20 Ml) Confirm Administered Dose 400 mg .ROUTE .STK-MED ONE Stop: 08/18/17 11:09 Rocuronium Neihart (Zemuron) Confirm Administered Dose 100 mg .ROUTE .STK-MED ONE Stop: 08/18/17 11:10 Tranexamic Acid (Cyklokapron) 2,000 mg IV ONETIME ONE Stop: 08/18/17 10:01 Tranexamic Acid (Cyklokapron) Confirm Administered Dose 2,000 mg .ROUTE .STK- MED ONE Stop: 08/18/17 07:24
[2017-08-18] MEDS ORDERED: HYDROmorphone 2 MG/ML Syringe ONE (13:05)
[2017-08-18] MEDS ORDERED: Scopolamine 1.5 MG Transdermal Patch ONE (13:48)
--- NOTE | 2017-08-18 14:21 | PCM.OPNOTE ---
- General Post-Op/Procedure Note Date of Surgery/Procedure: 08/18/17 Operative Procedure(s): left anterior total hip arthroplasty on previously operated hip Findings: hip OA Pre Op Diagnosis: left hip OA Post-Op Diagnosis: same Anesthesia Technique: General ET Tube Primary Surgeon: Linus Sánchez Mai Industrial Technologist: Dinorah Hernandez Reason Industrial Technologist Was Necessary: maipulating leg, reduction, closing Pathology: femoral head EBL in mLs: 300 Complications: none Condition: Good Free Text/Narrative:: Intake & Output 08/17/17 08/18/17 08/18/17 22:59 06:59 14:59 Output Total 100 Balance -100
[2017-08-18] MEDS: fentaNYL 100 MCG/2 ML SDV IVPUSH PRN ×4 (14:42→15:19)
[2017-08-18] MEDS ORDERED: HYDROmorphone 2 MG/ML Syringe IVPUSH ONE (14:44)
[2017-08-18] MEDS ORDERED: Ketorolac 30 MG/ML SDV IVPUSH ONE (15:08)
[2017-08-18] MEDS ORDERED: Acetaminophen 1,000 MG in Premix Bag 1 BAG IV ONE (15:19)
[2017-08-18] MEDS ORDERED: Ketamine 500 mg/10 ML MDV ONE (15:58)
[2017-08-18] MEDS ORDERED: HYDROmorphone/Normal Saline 6 MG/30 ML PCA Vial IV PRN (16:17)
--- NOTE | 2017-08-18 16:22 | PCM.SN ---
- Free Text/Narrative Note: Post operative pain management in recovery room has included additional fentanyl , dilaudid ofirmev and toradol still rates pain at a 10. After discussing with Dr. Bailey, gave ketamine 30 mg at 1602. rates pain at a 7 by 1618. Discussed with ortho DELANEY Hernandez. Dilaudid SKI PATROL order obtained will begin in recovery room. Unable to obtain SKI PATROL machine in recovery room according to recovery room nurse so pt discharged to surgical inpatient room and dilaudid director auto will be started there per discussion with Gianluca REAVES and in agreement with surgery inpatient nurse.
--- NOTE | 2017-08-18 16:33 | PCM.POSTAN ---
POST ANESTHESIA ASSESSMENT - MENTAL STATUS Mental Status: Alert, Oriented - VITAL SIGNS Pulse Rate: 103 SaO2: 99 Resp Rate: 15 Blood Pressure: 133/80 - RESPIRATORY Respiratory Status: Respiratory Rate WNL, Airway Patent, O2 Saturation Stable - CARDIOVASCULAR CV Status: Pulse Rate WNL, Blood Pressure Stable - GASTROINTESTINAL GI Status: No Symptoms - PAIN Pain Score: 7 (see provider simple note) - POST OP HYDRATION Hydration Status: Adequate & Stable - OBSERVATIONS Free Text/Narrative:: Vitals in stable limits. Working to improve pain Control Moving from recovery to inpatient and starting dilaudid fraternity house cook there after discussion with litzy Torres PA.
[2017-08-18] MEDS: Morphine PF 30 MG/30 ML PCA Vial IV SCH ×2 (16:57→21:20)
--- NOTE | 2017-08-18 17:00 | CR ---
EXAMINATION: Left hip HISTORY: Art plasty COMPARISON: 03/09/2017 TECHNIQUE: 4 fluoroscopic images FINDINGS/IMPRESSION: Operative control films demonstrate placement of left total hip hardware in good position and alignment.
[2017-08-18] MEDS: diphenhydrAMINE 25 MG Cap PO PRN (17:04)
[2017-08-18] MEDS: Ondansetron 4 MG/2 ML SDV IVPUSH PRN (18:09)
--- NOTE | 2017-08-18 18:20 | PCM48HPAN ---
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
[2017-08-18] MEDS: oxyCODONE ER 20 MG TAB.ER PO SCH (18:47)
--- NOTE | 2017-08-18 19:19 | OR ---
SURGEON: Linus Zamora MD DATE OF PROCEDURE: 08/18/2017 WELDING TEACHER: Dinorah Hernandez PA-C. PREOPERATIVE DIAGNOSIS: Left hip osteoarthritis. POSTOPERATIVE DIAGNOSIS: Left hip osteoarthritis. OPERATION PERFORMED: Left anterior total hip arthroplasty on previously operated hip ([id number]). ANESTHESIA: Attempted spinal and general. ESTIMATED BLOOD LOSS: 300 mL. SPECIMENS: Femoral head. COMPLICATIONS: None. IMPLANT: Charles Continuum trabecular metal shell with cluster holes, 52 mm outer diameter; Vivacit-E neutral liner 32 mm inner diameter; Fitmore hip stem uncemented size B2; and Biolox delta ceramic femoral head, 32 mm diameter, +3.5 neck length. INDICATIONS: The patient is a 36-year-old female, previously undergone hip arthroscopy for mild OA with bone marrow lesions. She did not do very well postoperatively and due to continued arthritis from several years ago, decision was made to proceed with left anterior total hip arthroplasty. She understands the risks, benefits, alternatives, and complications of the procedure including, but not limited to infection, neurovascular injury, continued pain, non-resolution of symptoms, DVT, PE, stroke, CT, , leg-length discrepancy, fracture, dislocation, deep infection, and she wished to proceed. DESCRIPTION OF PROCEDURE: The patient was seen in the preop area. The operative extremity was marked. The patient was transferred to the operating room where spinal anesthetic was attempted; however, was unable to perform and general anesthesia was induced and an endotracheal tube was placed. She was placed supine on the Arellano table with legs in the leg bars with narrow perineal post. She received preop antibiotics, Ancef, and also she received 2 g of TXA. The left hip was prepped and draped in a sterile fashion using alcohol, followed by ChloraPrep with Ioban covering. A formal time-out was taken identifying the correct patient, procedure, and extremity. A 10 cm incision starting just lateral to the ASIS going obliquely down the femur was made. Dissection was carried down to the subcutaneous tissues. Hemostasis was obtained. The fascia overlying the TFL was opened, and the interval between the TFL and sartorius was opened. There was scar tissue in the area due to the previous surgery as well as over the capsule. This was done protecting the lateral femoral cutaneous nerve. A deep Gabriel tractor was placed. The vastus lateralis fascia was opened, and the anterior vessels were coagulated. The scar was raised off between the rectus and the capsule. The capsule was then held and tagged with 2 FiberWires. The neck was then cut from the saddle region to 1.5 cm above the lesser trochanter and the head was removed. There were some grade 3-4 changes in the parafoveal area and inferiorly on the head. The acetabulum also showed some minimal grade 3-4 changes, and the labrum was ossified anteriorly and posteriorly. Anterior and posterior retractors were placed. The inferior capsule was released protecting the iliopsoas tendon, and the remnants of the pulvinar and the labrum were all removed. The head measured about 46 mm, and sequential reaming from 45-51 mm was made under fluoroscopic control. The bed was planed to make sure the pelvis was level, and the Continuum trabecular metal shell with cluster holes was impacted in 10 degrees of anteversion and 40 degrees of abduction. This had excellent press fit. No screws were placed. There was no uncovering of the cup anteriorly. The neutral liner was impacted after drying the hip out. The leg was then externally rotated, abducted, and extended after the femoral lift had been placed. The medial capsule was released. The superior capsule obturator, internus, and piriformis were released. Central canal finder was utilized, and sequential broaching from starter rasp up to size B2 was performed. This had excellent fit and fill and the B3 sat very proud. It was trial reduced with a zero neck length. Printed overlay technique with the opposite hip with fluoroscopy showed equal offset, but the leg to be about 2-4 mm short. There was a small amount of shuck to the hip, but it did not dislocate with range of motion. Hip was then dislocated following barrow version. After removing the trial components, a Fitmore hip stem B2 was impacted into place. This had excellent fit and fill. It was trial reduced to zero neck length. Printed overlay technique showed it to be 2-3 mm short, so the hip was dislocated and the Biolox delta ceramic femoral head 32 mm diameter +3.5 neck length was impacted after cleaning the Javier taper. Hip was then re-located. Print and x- ray showed equal leg length and offset. It was stable through range of motion with no dislocation. The wound was then thoroughly irrigated. The 2 tag sutures were tied together. The fascia was closed with 0 Vicryl, the subcutaneous tissues with 2-0 Stratafix, and the skin with 4-0 Monocryl. Dermabond tape and Aquacel dressing were placed. The patient was extubated in the operating room and transferred to the recovery room in stable condition. Sponge and needle counts were correct at the end of the case. No complications. She will take aspirin for DVT prophylaxis. CHIQUI / LUKAS /[id number]
[2017-08-18] MEDS ORDERED: oxyCODONE ER 20 MG TAB.ER PO SCH (21:00)
[2017-08-18] MEDS: Acetaminophen/oxyCODONE 325-5 MG Tab PO PRN (21:19)
[2017-08-18] MEDS: Docusate Sodium 100 MG Cap PO SCH (21:22)
[2017-08-18] MEDS: ceFAZolin 2 GM in Premix Bag 1 BAG IV SCH (21:54)
[2017-08-18] MEDS: HYDROmorphone 2 MG/ML SDV IVPUSH PRN (23:38)
[2017-08-18] MEDS: Diazepam 5 MG Tab PO PRN (23:39)
[2017-08-19] MEDS: Lactated Ringers 1,000 ML IV SCH (01:19)
[2017-08-19] MEDS: HYDROmorphone 2 MG/ML SDV IVPUSH PRN ×10 (01:50→22:20)
[2017-08-19] MEDS: Acetaminophen/oxyCODONE 325-5 MG Tab PO PRN ×3 (04:26→20:08)
[2017-08-19] MEDS: ceFAZolin 2 GM in Premix Bag 1 BAG IV SCH (06:10)
[2017-08-19] MEDS: oxyCODONE 5 MG Tab PO PRN ×3 (06:41→17:44)
[2017-08-19] MEDS ORDERED: Sodium Chloride 0.9% 2.5 ML Syringe FLUSH PRN (07:46)
[2017-08-19] MEDS ORDERED: Sodium Chloride 0.9% 10 ML Syringe FLUSH PRN (07:46)
--- NOTE | 2017-08-19 07:50 | PCM.SN ---
- Free Text/Narrative Note: S: Pain very difficult to control overnight. added valium and oral meds with GAS LINE SERVICER and then switched to dilaudid. States overall pain meds are helping more. has not been up yet. tolerating PO. no CP/SOB O: afebrile, vital signs stable dressing clean/dry/intact. 2+ pedal pulse. normal motor and sensation distally. no swelling distally. small swelling in left thigh. labs pending A/P: POD #1 left CARINA - full weight bearing. walker -> cane as tolerated - ASA for DVT prophylaxis. - SLIV, d/c mondragon when up. - will need to get pain regiment stable prior to d/c, will be in hospital at least one more day.
[2017-08-19] MEDS: oxyCODONE ER 20 MG TAB.ER PO SCH ×3 (08:05→21:30)
[2017-08-19] MEDS: Docusate Sodium 100 MG Cap PO SCH ×2 (08:05→21:30)
[2017-08-19] MEDS: Aspirin 325 MG Tab PO SCH ×2 (08:06→21:30)
[2017-08-19] MEDS: Diazepam 5 MG Tab PO PRN (09:32)
[2017-08-19 11:37] LABS: CHLORIDE,CL 99 mmol/L (98-110); SODIUM,NA 136 mmol/L (136-146)
[2017-08-19] MEDS: Insulin Aspart 100 Units/ML 3 ML Pen SUBCUT SCH ×2 (12:39→17:46)
[2017-08-19] MEDS ORDERED: Ketorolac 30 MG/ML SDV IVPUSH PRN (12:41)
--- NOTE | 2017-08-19 12:47 | PCM.CONS ---
H&P History of Present Illness - General Date of Service: 08/19/17 Admit Problem/Dx: Admission Diagnosis/Problem Admission Diagnosis/Problem Hip replacement planned Source of Information: Patient History Limitations: Reports: No Limitations - History of Present Illness Initial Comments - Free Text/Narative: This 36 year old female with pmh of DM type 2, obesity and chronic hip pain presented for L hip arthroplasty with Dr Zamora. She is post op day 1 today. She was recently moved to chair with PT and experiencing a lot of pain. She is frustrated with pain control and does not want to talk at this time. She denies chest pain or SOB. L hip pain is her issue. Hospitalist service consulted due to DM type 2, she was educated on this and understands we will be holding Metformin during her stay and providing insulin as per protocol and BS. Left Hip Pain Score (Numeric/FACES): 10 - Related Data Allergies/Adverse Reactions: Allergies Allergy/AdvReac Type Severity Reaction Status Date / Time hydrocodone Allergy Hives Verified 08/16/17 12:10 lobster Allergy Severe Anaphylactic Uncoded 07/27/17 18:02 Shock Home Medications: Home Meds Simvastatin [Zocor] 20 mg PO BEDTIME 03/10/17 [History] Citalopram [Celexa] 20 mg PO DAILY 04/03/17 [History] Cyclobenzaprine [Flexeril] 10 mg PO BEDTIME 06/06/17 [History] ALPRAZolam [Xanax] 1 tab PO Q6HR PRN 07/27/17 [History] oxyCODONE HCl/Acetaminophen [Oxycodon-Acetaminophen 7.5-300] 1 - 2 tab PO ASDIRECTED PRN 07/27/17 [History] metFORMIN HCl [Metformin HCl ER] 1,500 mg PO BEDTIME 08/16/17 [History] Past Medical History - Past Health History Medical/Surgical History: Denies Medical/Surgical History HEENT History: Reports: None Cardiovascular History: Reports: Congenital Septal Defect, High Cholesterol Other Cardiovascular History: hx of "hole in heart" Respiratory History: Reports: None. Denies: Asthma, COPD, PE Gastrointestinal History: Reports: None. 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: Reports: Musculoskeletal History: Reports: Fracture, Other (See Below) Other Musculoskeletal History: hx of fx feet, hand, and collarbone Neurological History: Reports: None Psychiatric History: Reports: Anxiety Endocrine/Metabolic History: Reports: Diabetes, Type II, Obesity/BMI 30+ Hematologic History: Reports: None Immunologic History: Reports: None Oncologic (Cancer) History: Reports: None Dermatologic History: Reports: None - Infectious Disease History Infectious Disease History: Reports: Chicken Pox - Past Surgical History Head Surgeries/Procedures: Reports: None HEENT Surgical History: Reports: None Cardiovascular Surgical History: Reports: Other (See Below) Other Cardiovascular Surgeries/Procedures: repair of hole in heart at age 8 Respiratory Surgical History: Reports: None GI Surgical History: Reports: Cholecystectomy Female Surgical History: Reports: Section Endocrine Surgical History: Reports: None Neurological Surgical History: Reports: None Musculoskeletal Surgical History: Reports: Arthroscopic Procedure Other Musculoskeletal Surgeries/Procedures:: repair of labral tear in left hip Oncologic Surgical History: Reports: None Dermatological Surgical History: Reports: None Social & Family History - Family History Family Medical History: Noncontributory Cardiac: Reports: Other (See Below) Other Cardiac Family History: heart disease Respiratory: Reports: Asthma Endocrine/Metabolic: Reports: Diabetes, type II Hematologic: Reports: Other (See Below) Other Hematologic Family History: excessive bleeding Oncologic: Reports: Colon, Ovarian - Tobacco Use Smoking Status *Q: Current Every Day Smoker Years of Tobacco use: 18 Packs/Tins Daily: 0.5 Used Tobacco, but Quit: No Second Hand Smoke Exposure: No - Caffeine Use Caffeine Use: Reports: Coffee, Soda Caffeine Use Comment: 2drinks/day - Recreational Drug Use Recreational Drug Use: No Drug Use in Last 12 Months: No H&P Review of Systems - Review of Systems: Review Of Systems: See Below General: Reports: No Symptoms. Denies: Fever, Chills, Malaise, Weakness Pulmonary: Reports: No Symptoms. Denies: Shortness of Breath Cardiovascular: Reports: No Symptoms. Denies: Chest Pain Musculoskeletal: Reports: Joint Pain (L hip pain) Skin: Reports: No Symptoms Psychiatric: Reports: No Symptoms Neurological: Reports: No Symptoms Hematologic/Lymphatic: Reports: No Symptoms Exam - Exam Exam: See Below - Vital Signs Vital Signs: Last Vital Signs Temp 98.4 F 08/19/17 08:00 Pulse 101 H 08/19/17 08:00 Resp 20 08/19/17 08:00 BP 107/61 08/19/17 08:00 Pulse Ox 94 L 08/19/17 08:00 Weight: 98.43 kg - Exam General: Alert, Oriented, Other (Sitting in chair, tearful). No: Cooperative ( no willing to talk much due to pain.) Lungs: Clear to Auscultation, Normal Respiratory Effort Cardiovascular: Regular Rate, Regular Rhythm GI/Abdominal Exam: Normal Bowel Sounds, Soft, Non-Tender, No Organomegaly, No Distention, No Abnormal Bruit, No Mass, Pelvis Stable Extremities: Normal Inspection, No Pedal Edema, Normal Capillary Refill Neuro Extensive - Mental Status: Alert, Oriented x3, Normal Mood/Affect Psychiatric: Alert, Anxious, Agitated (frustration noted due to pain level) - Patient Data Lab Results Last 24 hrs: Laboratory Results - last 24 hr 08/18/17 08/18/17 08/19/17 Range/Units 18:16 22:05 06:37 Hgb 10.8 L (12.0-16.0) g/dL Hct 32.8 L (36.0-46.0) % Sodium (136-146) mmol/L Potassium (3.5-5.1) mmol/L Chloride (98-110) mmol/L Carbon Dioxide (21-31) mmol/L BUN (6.0-23.0) mg/dL Creatinine (0.6-1.5) mg/dL Est Cr Clr Drug Dosing mL/min Estimated GFR (MDRD) ml/min Glucose (60-110) mg/dL POC Glucose 144 H 93 (60-110) mg/dL Calcium (8.8-10.8) mg/dL 08/19/17 08/19/17 08/19/17 Range/Units 06:38 11:07 11:35 Hgb (12.0-16.0) g/dL Hct (36.0-46.0) % Sodium 136 (136-146) mmol/L Potassium 3.8 (3.5-5.1) mmol/L Chloride 99 (98-110) mmol/L Carbon Dioxide 25 (21-31) mmol/L BUN 5 L (6.0-23.0) mg/dL Creatinine 0.6 (0.6-1.5) mg/dL Est Cr Clr Drug Dosing 123.68 mL/min Estimated GFR (MDRD) > 60.0 ml/min Glucose 127 H (60-110) mg/dL POC Glucose 115 H 137 H (60-110) mg/dL Calcium 9.1 (8.8-10.8) mg/dL Result Diagrams: 08/19/17 06:37 08/19/17 11:07 Consult PN Assessment/Plan Procedures: Procedures AGENT NOS ASSAY W/OPTIC (04/03/17) ASSAY OF AMYLASE (07/27/17) ASSAY OF LIPASE (07/27/17) ASSAY OF MAGNESIUM (04/03/17) ASSAY OF TROPONIN QUANT (07/27/17) ASSAY THYROID STIM HORMONE (07/27/17) CHEST X-RAY 1 VIEW FRONTAL (07/27/17) CHEST X-RAY 2VW FRONTAL&LATL (04/29/17) CHORIONIC GONADOTROPIN ASSAY (03/10/17) COMPLETE CBC W/AUTO DIFF WBC (08/10/17) COMPREHEN METABOLIC PANEL (07/27/17) CONTRAST X-RAY OF HIP (01/12/17) CT ABD & PELV W/CONTRAST (04/03/17) CT ANGIOGRAPHY CHEST (04/03/17) DIAGNOSTIC COLONOSCOPY (06/09/17) EGD BIOPSY SINGLE/MULTIPLE (06/09/17) ELECTROCARDIOGRAM TRACING (08/10/17) EMERGENCY DEPT VISIT (07/27/17) EMERGENCY DEPT VISIT (02/13/17) EMERGENCY DEPT VISIT (01/14/16) EMERGENCY DEPT VISIT (10/04/15) FIBRIN DEGRADATION QUANT (07/27/17) FLUOROSCOPE EXAM EXTENSIVE (10/14/15) GLUCOSE BLOOD TEST (04/03/17) GLYCOSYLATED HEMOGLOBIN TEST (08/10/17) HELICOBACTER PYLORI ANTIBODY (04/03/17) HIP ARTHRO W/FEMOROPLASTY (10/14/15) HIP ARTHRO W/LABRAL REPAIR (10/14/15) HPYLORI STOOL IA (04/03/17) HYDRATE IV INFUSION ADD-ON (07/27/17) INFLUENZA ASSAY W/OPTIC (04/29/17) INJECTION FOR HIP X-RAY (09/02/15) LIPID PANEL (04/03/17) METABOLIC PANEL TOTAL CA (08/10/17) MRI JOINT LWR EXTR W/O&W/DYE (09/02/15) MRI JOINT OF LWR EXTR W/DYE (01/12/17) NEEDLE LOCALIZATION BY XRAY (01/12/17) OCCULT BLD FECES 1-3 TESTS (04/03/17) PROTHROMBIN TIME (08/10/17) PT EVAL LOW COMPLEX 20 MIN (01/26/17) PT EVALUATION (12/01/15) ROUTINE VENIPUNCTURE (08/10/17) SPECIAL STAINS GROUP 1 (06/09/17) STOOL CULTR AEROBIC BACT EA (04/03/17) THER/PROPH/DIAG INJ IV PUSH (07/27/17) THER/PROPH/DIAG INJ SC/IM (03/10/17) THERAPEUTIC EXERCISES (01/26/17) TISSUE EXAM BY PATHOLOGIST (06/09/17) TTE W/DOPPLER COMPLETE (01/24/17) TX/PRO/DX INJ NEW DRUG ADDON (07/27/17) TX/PRO/DX INJ SAME DRUG LEGAL RECRUITER (04/03/17) ULTRASOUND THERAPY (01/26/17) UR ALBUMIN QUANTITATIVE (03/29/16) URINALYSIS AUTO W/SCOPE (08/10/17) URINE TEST (06/09/17) X-RAY EXAM HIP UNI 2-3 VIEWS (03/09/17) X-RAY EXAM OF HIP (08/02/15) X-RAY EXAM OF HIP (07/01/15) X-RAY EXAM OF PELVIS (07/01/15) (1) S/P total hip arthroplasty SNOMED Code(s): 047528373263 Code(s): Z96.649 - PRESENCE OF UNSPECIFIED ARTIFICIAL HIP JOINT Current Visit: Yes (2) Hypercholesteremia SNOMED Code(s): 11013237 Code(s): E78.00 - PURE HYPERCHOLESTEROLEMIA, UNSPECIFIED Current Visit: Yes (3) Diabetes mellitus SNOMED Code(s): 37041185 Code(s): E11.9 - TYPE 2 DIABETES MELLITUS WITHOUT COMPLICATIONS Current Visit: No Qualifiers: Diabetes mellitus type: type 2 Diabetes mellitus complication status: without complication Diabetes mellitus mcc insulin use: without mcc use Qualified Code(s): E11.9 - Type 2 diabetes mellitus without complications Problem List Initiated/Reviewed/Updated: Yes My Orders Last 24 Hours: My Active Orders 08/19/17 11:30 Insulin Aspart [NovoLOG] See Protocol SUBCUT TIDAC Plan: This 36 year old female admitted for total hip arthoplasty with Dr Zamora. Hospitalist service consulted for medical management of DM type 2. 1. L anterior total hip arthoroplasty: Orders and pain controlled per Dr Zamora 2. DM type 2: Will hold Metformin until discharge. Novolog SSI per protocol, BS checks TIDAC. BMP WNL. Will monitor 3. Hypercholesterolemia: Continue statin. VTE prophylaxis: Would recommend when deemed appropriate by Orthopedics
[2017-08-19] MEDS: Ondansetron 4 MG/2 ML SDV IVPUSH PRN (12:55)
[2017-08-20] MEDS: Diazepam 5 MG Tab PO PRN (00:38)
[2017-08-20] MEDS: Acetaminophen/oxyCODONE 325-5 MG Tab PO PRN ×3 (01:50→10:06)
[2017-08-20] MEDS: diphenhydrAMINE 25 MG Cap PO PRN (01:51)
[2017-08-20] MEDS: Ondansetron 4 MG/2 ML SDV IVPUSH PRN ×3 (01:53→10:53)
[2017-08-20] MEDS: HYDROmorphone 2 MG/ML SDV IVPUSH PRN ×5 (02:24→10:54)
[2017-08-20] MEDS: oxyCODONE 5 MG Tab PO PRN (03:04)
[2017-08-20] MEDS: Aspirin 325 MG Tab PO SCH (09:10)
[2017-08-20] MEDS: oxyCODONE ER 20 MG TAB.ER PO SCH (09:11)
[2017-08-20] MEDS: Docusate Sodium 100 MG Cap PO SCH (09:11)
--- NOTE | 2017-08-20 09:36 | PCM.CONSN ---
- General Info Date of Service: 08/20/17 Admission Dx/Problem (Free Text): Admission Diagnosis/Problem Admission Diagnosis/Problem Hip replacement planned Subjective Update: Still having pain but controlled this morning. Denies n/v, chest pain, palpitations, sob, syncopal episodes or neuro deficits. Functional Status: Reports: Pain Controlled, Tolerating Diet - Review of Systems General: Denies: Fever, Weakness HEENT: Denies: Headaches, Visual Changes Pulmonary: Denies: Shortness of Breath, Cough, Sputum Cardiovascular: Denies: Chest Pain, Palpitations, Edema Gastrointestinal: Denies: Abdominal Pain, Nausea, Vomiting Genitourinary: Denies: Dysuria, Hematuria Musculoskeletal: Reports: Leg Pain. Denies: Neck Pain Skin: Denies: Cyanosis Neurological: Denies: Confusion, Dizziness Psychiatric: Denies: Confusion - Patient Data Vitals - Most Recent: Last Vital Signs Temp 98.5 F 08/20/17 04:00 Pulse 77 08/20/17 04:00 Resp 20 08/20/17 04:00 BP 111/72 08/20/17 04:00 Pulse Ox 96 08/20/17 04:00 Weight - Most Recent: 98.43 kg I&O - Last 24 Hours: Intake & Output 08/19/17 08/20/17 08/20/17 22:59 06:59 14:59 Intake Total 500 240 Output Total 1170 600 Balance -670 -360 Lab Results Last 24 Hours: Laboratory Results - last 24 hr 08/19/17 08/19/17 08/19/17 Range/Units 11:07 11:35 16:15 Sodium 136 (136-146) mmol/L Potassium 3.8 (3.5-5.1) mmol/L Chloride 99 (98-110) mmol/L Carbon Dioxide 25 (21-31) mmol/L BUN 5 L (6.0-23.0) mg/dL Creatinine 0.6 (0.6-1.5) mg/dL Est Cr Clr Drug Dosing 123.68 mL/min Estimated GFR (MDRD) > 60.0 ml/min Glucose 127 H (60-110) mg/dL POC Glucose 137 H 152 H (60-110) mg/dL Calcium 9.1 (8.8-10.8) mg/dL 08/20/17 Range/Units 08:03 Sodium (136-146) mmol/L Potassium (3.5-5.1) mmol/L Chloride (98-110) mmol/L Carbon Dioxide (21-31) mmol/L BUN (6.0-23.0) mg/dL Creatinine (0.6-1.5) mg/dL Est Cr Clr Drug Dosing mL/min Estimated GFR (MDRD) ml/min Glucose (60-110) mg/dL POC Glucose 158 H (60-110) mg/dL Calcium (8.8-10.8) mg/dL Med Orders - Current: Current Medications Aspirin (Aspirin) 325 mg PO BID [facility] Last Admin: 08/20/17 09:10 Dose: 325 mg Diazepam (Valium.) 5 mg PO Q8H PRN PRN Reason: Muscle Spasm Last Admin: 08/20/17 00:38 Dose: 5 mg Diphenhydramine HCl (Benadryl) 25 - 50 mg PO Q6H PRN PRN Reason: Itching Last Admin: 08/20/17 01:51 Dose: 50 mg Docusate Sodium (Colace) 100 mg PO BID [facility] Last Admin: 08/20/17 09:11 Dose: 100 mg Hydromorphone HCl (Dilaudid) 1 - 5 mg IVPUSH Q2H PRN PRN Reason: Pain Last Admin: 08/20/17 08:13 Dose: 5 mg Cefazolin Sodium/Dextrose 2 gm (/ Premix) 50 mls @ 50 mls/hr IV ONETIME [facility] Last Admin: 08/19/17 06:07 Dose: 50 mls/hr Insulin Aspart (Novolog) 0 unit SUBCUT TIDAC [facility] PRN Reason: Protocol Last Admin: 08/19/17 17:46 Dose: 1 unit Ketorolac Tromethamine (Toradol) 30 mg IVPUSH Q6H PRN PRN Reason: Pain (severe 7-10) Stop: 08/24/17 12:41 Last Admin: 08/19/17 16:11 Dose: 30 mg Ondansetron HCl (Zofran) 4 mg IVPUSH Q4H PRN PRN Reason: Nausea/Vomiting Last Admin: 08/20/17 06:21 Dose: 4 mg Oxycodone HCl (Oxycodone) 5 - 10 mg PO Q4H PRN PRN Reason: Pain Last Admin: 08/20/17 03:04 Dose: 5 mg Oxycodone HCl (Oxycontin) 40 mg PO BID [facility] Last Admin: 08/20/17 09:11 Dose: 40 mg Oxycodone/Acetaminophen (Percocet 325-5 Mg) 1 - 2 tab PO Q4H PRN PRN Reason: Pain Last Admin: 08/20/17 05:57 Dose: 2 tab Sodium Chloride (Saline Flush) 10 ml FLUSH ASDIRECTED PRN PRN Reason: Keep Vein Open Sodium Chloride (Saline Flush) 2.5 ml FLUSH ASDIRECTED PRN PRN Reason: Keep Vein Open Discontinued Medications Ephedrine Sulfate (Ephedrine Sulfate) Confirm Administered Dose 100 mg .ROUTE .STK-MED ONE Stop: 08/18/17 11:12 Fentanyl (Sublimaze) Confirm Administered Dose 100 mcg .ROUTE .STK-MED ONE Stop: 08/18/17 11:09 Fentanyl (Sublimaze) Confirm Administered Dose 250 mcg .ROUTE .STK-MED ONE Stop: 08/18/17 11:09 Fentanyl (Sublimaze) Confirm Administered Dose 100 mcg .ROUTE .STK-MED ONE Stop: 08/18/17 13:29 Fentanyl (Sublimaze) 50 mcg IVPUSH Q5M PRN PRN Reason: Pain (severe 7-10) Stop: 08/19/17 13:57 Last Admin: 08/18/17 15:19 Dose: 50 mcg Glycopyrrolate () Confirm Administered Dose 1 mg .ROUTE .STK-MED ONE Stop: 08/18/17 11:10 Hydromorphone HCl (Dilaudid) Confirm Administered Dose 2 mg .ROUTE .STK-MED ONE Stop: 08/18/17 13:06 Hydromorphone HCl (Dilaudid) 0 mg IVPUSH ONETIME ONE Stop: 08/18/17 14:45 Last Admin: 08/18/17 14:54 Dose: 2 mg Hydromorphone HCl (Dilaudid) 1 - 5 mg IVPUSH Q2HR PRN PRN Reason: Pain Last Admin: 08/19/17 10:09 Dose: 4 mg Lactated Ringer's (Ringers, Lactated) 1,000 mls @ 125 mls/hr IV ASDIRECTED [facility] Last Admin: 08/19/17 01:19 Dose: 125 mls/hr Acetaminophen 1,000 mg/ Premix 100 mls @ 400 mls/hr IV NOW ONE Stop: 08/18/17 15:33 Last Admin: 08/18/17 15:33 Dose: 400 mls/hr Cefazolin Sodium/Dextrose 2 gm (/ Premix) 50 mls @ 100 mls/hr IV Q8H [facility] Stop: 08/19/17 06:29 Last Admin: 08/19/17 06:10 Dose: 100 mls/hr Ketamine HCl (Ketalar) Confirm Administered Dose 500 mg .ROUTE .STK-MED ONE Stop: 08/18/17 15:59 Ketorolac Tromethamine (Toradol) 30 mg IVPUSH ONETIME ONE Stop: 08/18/17 15:09 Last Admin: 08/18/17 15:30 Dose: 30 mg Lidocaine (Xylocaine-Mpf 2%) Confirm Administered Dose 10 ml .ROUTE .STK-MED ONE Stop: 08/18/17 11:09 Midazolam HCl (Versed 1 Mg/Ml) Confirm Administered Dose 2 mg .ROUTE .STK-MED ONE Stop: 08/18/17 11:09 Morphine Sulfate (Morphine Dressed Poultry Grader 30 Mg In 30 Ml) 30 mg IV SEECOMMENT [facility] PRN Reason: Protocol Last Admin: 08/18/17 21:20 Dose: 30 mg Neostigmine Methylsulfate (Neostigmine) Confirm Administered Dose 5 mg .ROUTE .STK-MED ONE Stop: 08/18/17 11:10 Ondansetron HCl (Zofran) Confirm Administered Dose 4 mg .ROUTE .STK-MED ONE Stop: 08/18/17 11:10 Ondansetron HCl (Zofran) Confirm Administered Dose 4 mg .ROUTE .STK-MED ONE Stop: 08/18/17 13:48 Oxycodone HCl (Oxycontin) 20 mg PO Q12HR [facility] Oxycodone HCl (Oxycontin) 20 mg PO BID [facility] Last Admin: 08/19/17 08:05 Dose: 20 mg Propofol (Diprivan 20 Ml) Confirm Administered Dose 400 mg .ROUTE .STK-MED ONE Stop: 08/18/17 11:09 Propofol (Diprivan 20 Ml) Confirm Administered Dose 200 mg .ROUTE .STK-MED ONE Stop: 08/18/17 13:42 Rocuronium [place] (Zemuron) Confirm Administered Dose 100 mg .ROUTE .STK-MED ONE Stop: 08/18/17 11:10 Scopolamine (Transderm-Scop) Confirm Administered Dose 1.5 mg .ROUTE .STK-MED ONE Stop: 08/18/17 13:49 Tranexamic Acid (Cyklokapron) 2,000 mg IV ONETIME ONE Stop: 08/18/17 10:01 Last Admin: 08/18/17 18:40 Dose: Not Given Tranexamic Acid (Cyklokapron) Confirm Administered Dose 2,000 mg .ROUTE .STK- MED ONE Stop: 08/18/17 07:24 - Exam Quality Assessment: DVT Prophylaxis General: Alert, Oriented, Cooperative HEENT: Pupils Equal, Pupils Reactive, EOMI, Mucous Membr. Moist/[place] Neck: Supple, Trachea Midline Lungs: Clear to Auscultation, Normal Respiratory Effort Cardiovascular: Regular Rate, Regular Rhythm GI/Abdominal Exam: Normal Bowel Sounds, Soft, Non-Tender, No Organomegaly, No Distention Back Exam: Normal Inspection Extremities: No Pedal Edema, Normal Capillary Refill. No: Debbie's Sign Peripheral Pulses: 2+: Radial (L), Radial (R), Posterior Tibial (L), Posterior Tibial (R), Dorsalis Pedis (L), Dorsalis Pedis (R) Skin: Warm, Dry, Intact Neurological: No New Focal Deficit Psy/Mental Status: Alert, Normal Affect, Normal Mood Consult PN Assessment/Plan Procedures: Procedures AGENT NOS ASSAY W/OPTIC (04/03/17) ASSAY OF AMYLASE (07/27/17) ASSAY OF LIPASE (07/27/17) ASSAY OF MAGNESIUM (04/03/17) ASSAY OF TROPONIN QUANT (07/27/17) ASSAY THYROID STIM HORMONE (07/27/17) CHEST X-RAY 1 VIEW FRONTAL (07/27/17) CHEST X-RAY 2VW FRONTAL&LATL (04/29/17) CHORIONIC GONADOTROPIN ASSAY (03/10/17) COMPLETE CBC W/AUTO DIFF WBC (08/10/17) COMPREHEN METABOLIC PANEL (07/27/17) CONTRAST X-RAY OF HIP (01/12/17) CT ABD & PELV W/CONTRAST (04/03/17) CT ANGIOGRAPHY CHEST (04/03/17) DIAGNOSTIC COLONOSCOPY (06/09/17) EGD BIOPSY SINGLE/MULTIPLE (06/09/17) ELECTROCARDIOGRAM TRACING (08/10/17) EMERGENCY DEPT VISIT (07/27/17) EMERGENCY DEPT VISIT (02/13/17) EMERGENCY DEPT VISIT (01/14/16) EMERGENCY DEPT VISIT (10/04/15) FIBRIN DEGRADATION QUANT (07/27/17) FLUOROSCOPE EXAM EXTENSIVE (10/14/15) GLUCOSE BLOOD TEST (04/03/17) GLYCOSYLATED HEMOGLOBIN TEST (08/10/17) HELICOBACTER PYLORI ANTIBODY (04/03/17) HIP ARTHRO W/FEMOROPLASTY (10/14/15) HIP ARTHRO W/LABRAL REPAIR (10/14/15) HPYLORI STOOL IA (04/03/17) HYDRATE IV INFUSION ADD-ON (07/27/17) INFLUENZA ASSAY W/OPTIC (04/29/17) INJECTION FOR HIP X-RAY (09/02/15) LIPID PANEL (04/03/17) METABOLIC PANEL TOTAL CA (08/10/17) MRI JOINT LWR EXTR W/O&W/DYE (09/02/15) MRI JOINT OF LWR EXTR W/DYE (01/12/17) NEEDLE LOCALIZATION BY XRAY (01/12/17) OCCULT BLD FECES 1-3 TESTS (04/03/17) PROTHROMBIN TIME (08/10/17) PT EVAL LOW COMPLEX 20 MIN (01/26/17) PT EVALUATION (12/01/15) ROUTINE VENIPUNCTURE (08/10/17) SPECIAL STAINS GROUP 1 (06/09/17) STOOL CULTR AEROBIC BACT EA (04/03/17) THER/PROPH/DIAG INJ IV PUSH (07/27/17) THER/PROPH/DIAG INJ SC/IM (03/10/17) THERAPEUTIC EXERCISES (01/26/17) TISSUE EXAM BY PATHOLOGIST (06/09/17) TTE W/DOPPLER COMPLETE (01/24/17) TX/PRO/DX INJ NEW DRUG ADDON (07/27/17) TX/PRO/DX INJ SAME DRUG CAMPUS EXECUTIVE DIRECTOR (04/03/17) ULTRASOUND THERAPY (01/26/17) UR ALBUMIN QUANTITATIVE (03/29/16) URINALYSIS AUTO W/SCOPE (08/10/17) URINE TEST (06/09/17) X-RAY EXAM HIP UNI 2-3 VIEWS (03/09/17) X-RAY EXAM OF HIP (08/02/15) X-RAY EXAM OF HIP (07/01/15) X-RAY EXAM OF PELVIS (07/01/15) (1) S/P total hip arthroplasty SNOMED Code(s): 910852932503 Code(s): Z96.649 - PRESENCE OF UNSPECIFIED ARTIFICIAL HIP JOINT Current Visit: Yes Problem List Initiated/Reviewed/Updated: Yes Plan: 36 year old female admitted for total hip arthoplasty with Dr Zamora. Hospitalist service consulted for medical management of DM type 2. 1. L anterior total hip arthoroplasty: Orders and pain controlled per Dr Zamora 2. DM type 2: Holding Metformin until discharge. Novolog SSI per protocol, BS checks TIDAC. BMP WNL. Will monitor 3. Hypercholesterolemia: Continue statin. VTE prophylaxis: Would recommend when deemed appropriate by Orthopedics
[2017-08-20] MEDS: Insulin Aspart 100 Units/ML 3 ML Pen SUBCUT SCH (09:50)
--- NOTE | 2017-08-20 10:05 | PCM.SN ---
- Free Text/Narrative Note: Subjective: Patient states that she was doing very well until she jammed her hip slightly very of her pain has been controlled with oral OxyContin and Percocet. She wished to go home today. She is ambulating well with a walker has walked for him the hallways. Injected: Afebrile, vital signs stable Dressing is clean dry and intact with no drainage. She has some swelling in the thigh but none distally. Normal sensation and motor distally with a palpable pedal pulse. Assessment/plan: Postoperative day #2 left total hip arthroplasty - Weightbearing as tolerated with physical therapy. She will transition from walker to a cane as tolerated. She may shower. - We will give her OxyContin and Percocet. She will transition down and wean herself from the OxyContin over the next several weeks. - Aspirin for DVT prophylaxis for 1 month. - To home today.
--- NOTE | 2017-08-20 10:07 | PCM.DCSUM1 ---
Discharge Summary - Hospital Course Brief History: Patient is admitted for elective left total hip arthroplasty. She has failed conservative management - Discharge Data Discharge Date: 08/20/17 Discharge Disposition: Home, Self-Care 01 Condition: Good - Patient Summary/Data Operative Procedure(s) Performed: left anterior total hip arthroplasty on previously operated hip Consults: Consultations 08/18/17 16:28 Consult to Physician [CONS] Routine PT Evaluation and Treatment [CONS] Routine Hospital Course: Patient was admitted and underwent uneventful total hip arthroplasty. Postoperatively she was admitted to the floor where her pain was controlled through much diligence transitioning from morphine to Dilaudid in increasing OxyContin to include Valium Percocet and Toradol. On postoperative day #2 her pain was well-controlled and she may been ambulating well. Her diet was advanced and she did well postoperatively. She was kept on aspirin for DVT prophylaxis. To socially discharged home on postoperative day #2. Medicine was consulted for blood sugar control. - Patient Instructions Diet: Usual Diet as Tolerated Activity: Apply Ice, As Tolerated Driving, Other: may drive when not on narcotic pain meds Showering/Bathing: May Shower Wound/Incision Care: Do NOT Change Dressing Notify Provider of: Fever, Swelling and Redness, Drainage - Discharge Plan Prescriptions/Med Rec: Aspirin [Ecotrin] 325 mg PO BID #60 tab.ec Docusate Sodium [Colace] 100 mg PO BID PRN #60 capsule PRN Reason: Constipation oxyCODONE ER [OxyCONTIN] 20 mg PO TID #40 tab.er oxyCODONE HCl/Acetaminophen [Percocet 7.5-325 mg Tablet] 1 - 2 each PO Q4H PRN # 50 tablet PRN Reason: Pain Home Medications: Home Meds Simvastatin [Zocor] 20 mg PO BEDTIME 03/10/17 [History] Citalopram [Celexa] 20 mg PO DAILY 04/03/17 [History] Cyclobenzaprine [Flexeril] 10 mg PO BEDTIME 06/06/17 [History] ALPRAZolam [Xanax] 1 tab PO Q6HR PRN 07/27/17 [History] oxyCODONE HCl/Acetaminophen [Oxycodon-Acetaminophen 7.5-300] 1 - 2 tab PO ASDIRECTED PRN 07/27/17 [History] metFORMIN HCl [Metformin HCl ER] 1,500 mg PO BEDTIME 08/16/17 [History] Aspirin [Ecotrin] 325 mg PO BID #60 tab.ec 08/20/17 [Rx] Docusate Sodium [Colace] 100 mg PO BID PRN #60 capsule 08/20/17 [Rx] oxyCODONE ER [OxyCONTIN] 20 mg PO TID #40 tab.er 08/20/17 [Rx] oxyCODONE HCl/Acetaminophen [Percocet 7.5-325 mg Tablet] 1 - 2 each PO Q4H PRN # 50 tablet 08/20/17 [Rx] Patient Handouts: Acetaminophen; Oxycodone tablets, Total Hip Replacement, Easy -to-Read, Aspirin, ASA oral tablets, Oxycodone extended-release tablets, Docusate capsules Referrals: Dinorah Hernandez PA [Physician [facility]] - 08/30/17 10:30 am - Discharge Summary/Plan Comment DC Time >30 min.: No - Patient Data Vitals - Most Recent: Last Vital Signs Temp 36.9 C 08/20/17 04:00 Pulse 77 08/20/17 04:00 Resp 20 08/20/17 04:00 BP 111/72 08/20/17 04:00 Pulse Ox 96 08/20/17 04:00 Weight - Most Recent: 98.43 kg I&O - Last 24 hours: Intake & Output 08/19/17 08/20/17 08/20/17 22:59 06:59 14:59 Intake Total 500 240 Output Total 1170 600 Balance -670 -360 Lab Results - Last 24 hrs: Laboratory Results - last 24 hr 08/19/17 08/19/17 08/19/17 Range/Units 11:07 11:35 16:15 Sodium 136 (136-146) mmol/L Potassium 3.8 (3.5-5.1) mmol/L Chloride 99 (98-110) mmol/L Carbon Dioxide 25 (21-31) mmol/L BUN 5 L (6.0-23.0) mg/dL Creatinine 0.6 (0.6-1.5) mg/dL Est Cr Clr Drug Dosing 123.68 mL/min Estimated GFR (MDRD) > 60.0 ml/min Glucose 127 H (60-110) mg/dL POC Glucose 137 H 152 H (60-110) mg/dL Calcium 9.1 (8.8-10.8) mg/dL 08/20/17 Range/Units 08:03 Sodium (136-146) mmol/L Potassium (3.5-5.1) mmol/L Chloride (98-110) mmol/L Carbon Dioxide (21-31) mmol/L BUN (6.0-23.0) mg/dL Creatinine (0.6-1.5) mg/dL Est Cr Clr Drug Dosing mL/min Estimated GFR (MDRD) ml/min Glucose (60-110) mg/dL POC Glucose 158 H (60-110) mg/dL Calcium (8.8-10.8) mg/dL Med Orders - Current: Current Medications Aspirin (Aspirin) 325 mg PO BID [facility] Last Admin: 08/20/17 09:10 Dose: 325 mg Diazepam (Valium.) 5 mg PO Q8H PRN PRN Reason: Muscle Spasm Last Admin: 08/20/17 00:38 Dose: 5 mg Diphenhydramine HCl (Benadryl) 25 - 50 mg PO Q6H PRN PRN Reason: Itching Last Admin: 08/20/17 01:51 Dose: 50 mg Docusate Sodium (Colace) 100 mg PO BID [facility] Last Admin: 08/20/17 09:11 Dose: 100 mg Hydromorphone HCl (Dilaudid) 1 - 5 mg IVPUSH Q2H PRN PRN Reason: Pain Last Admin: 08/20/17 08:13 Dose: 5 mg Cefazolin Sodium/Dextrose 2 gm (/ Premix) 50 mls @ 50 mls/hr IV ONETIME [facility] Last Admin: 08/19/17 06:07 Dose: 50 mls/hr Insulin Aspart (Novolog) 0 unit SUBCUT TIDAC [facility] PRN Reason: Protocol Last Admin: 08/20/17 09:50 Dose: Not Given Ketorolac Tromethamine (Toradol) 30 mg IVPUSH Q6H PRN PRN Reason: Pain (severe 7-10) Stop: 08/24/17 12:41 Last Admin: 08/19/17 16:11 Dose: 30 mg Ondansetron HCl (Zofran) 4 mg IVPUSH Q4H PRN PRN Reason: Nausea/Vomiting Last Admin: 08/20/17 06:21 Dose: 4 mg Oxycodone HCl (Oxycodone) 5 - 10 mg PO Q4H PRN PRN Reason: Pain Last Admin: 08/20/17 03:04 Dose: 5 mg Oxycodone HCl (Oxycontin) 40 mg PO BID [facility] Last Admin: 08/20/17 09:11 Dose: 40 mg Oxycodone/Acetaminophen (Percocet 325-5 Mg) 1 - 2 tab PO Q4H PRN PRN Reason: Pain Last Admin: 08/20/17 05:57 Dose: 2 tab Sodium Chloride (Saline Flush) 10 ml FLUSH ASDIRECTED PRN PRN Reason: Keep Vein Open Sodium Chloride (Saline Flush) 2.5 ml FLUSH ASDIRECTED PRN PRN Reason: Keep Vein Open Discontinued Medications Ephedrine Sulfate (Ephedrine Sulfate) Confirm Administered Dose 100 mg .ROUTE .STK-MED ONE Stop: 08/18/17 11:12 Fentanyl (Sublimaze) Confirm Administered Dose 100 mcg .ROUTE .STK-MED ONE Stop: 08/18/17 11:09 Fentanyl (Sublimaze) Confirm Administered Dose 250 mcg .ROUTE .STK-MED ONE Stop: 08/18/17 11:09 Fentanyl (Sublimaze) Confirm Administered Dose 100 mcg .ROUTE .STK-MED ONE Stop: 08/18/17 13:29 Fentanyl (Sublimaze) 50 mcg IVPUSH Q5M PRN PRN Reason: Pain (severe 7-10) Stop: 08/19/17 13:57 Last Admin: 08/18/17 15:19 Dose: 50 mcg Glycopyrrolate () Confirm Administered Dose 1 mg .ROUTE .STK-MED ONE Stop: 08/18/17 11:10 Hydromorphone HCl (Dilaudid) Confirm Administered Dose 2 mg .ROUTE .STK-MED ONE Stop: 08/18/17 13:06 Hydromorphone HCl (Dilaudid) 0 mg IVPUSH ONETIME ONE Stop: 08/18/17 14:45 Last Admin: 08/18/17 14:54 Dose: 2 mg Hydromorphone HCl (Dilaudid) 1 - 5 mg IVPUSH Q2HR PRN PRN Reason: Pain Last Admin: 08/19/17 10:09 Dose: 4 mg Lactated Ringer's (Ringers, Lactated) 1,000 mls @ 125 mls/hr IV ASDIRECTED [facility] Last Admin: 08/19/17 01:19 Dose: 125 mls/hr Acetaminophen 1,000 mg/ Premix 100 mls @ 400 mls/hr IV NOW ONE Stop: 08/18/17 15:33 Last Admin: 08/18/17 15:33 Dose: 400 mls/hr Cefazolin Sodium/Dextrose 2 gm (/ Premix) 50 mls @ 100 mls/hr IV Q8H [facility] Stop: 08/19/17 06:29 Last Admin: 08/19/17 06:10 Dose: 100 mls/hr Ketamine HCl (Ketalar) Confirm Administered Dose 500 mg .ROUTE .STK-MED ONE Stop: 08/18/17 15:59 Ketorolac Tromethamine (Toradol) 30 mg IVPUSH ONETIME ONE Stop: 08/18/17 15:09 Last Admin: 08/18/17 15:30 Dose: 30 mg Lidocaine (Xylocaine-Mpf 2%) Confirm Administered Dose 10 ml .ROUTE .STK-MED ONE Stop: 08/18/17 11:09 Midazolam HCl (Versed 1 Mg/Ml) Confirm Administered Dose 2 mg .ROUTE .STK-MED ONE Stop: 08/18/17 11:09 Morphine Sulfate (Morphine Body Designer 30 Mg In 30 Ml) 30 mg IV SEECOMMENT [facility] PRN Reason: Protocol Last Admin: 08/18/17 21:20 Dose: 30 mg Neostigmine Methylsulfate (Neostigmine) Confirm Administered Dose 5 mg .ROUTE .STK-MED ONE Stop: 08/18/17 11:10 Ondansetron HCl (Zofran) Confirm Administered Dose 4 mg .ROUTE .STK-MED ONE Stop: 08/18/17 11:10 Ondansetron HCl (Zofran) Confirm Administered Dose 4 mg .ROUTE .STK-MED ONE Stop: 08/18/17 13:48 Oxycodone HCl (Oxycontin) 20 mg PO Q12HR [facility] Oxycodone HCl (Oxycontin) 20 mg PO BID [facility] Last Admin: 08/19/17 08:05 Dose: 20 mg Propofol (Diprivan 20 Ml) Confirm Administered Dose 400 mg .ROUTE .STK-MED ONE Stop: 08/18/17 11:09 Propofol (Diprivan 20 Ml) Confirm Administered Dose 200 mg .ROUTE .STK-MED ONE Stop: 08/18/17 13:42 Rocuronium [place] (Zemuron) Confirm Administered Dose 100 mg .ROUTE .STK-MED ONE Stop: 08/18/17 11:10 Scopolamine (Transderm-Scop) Confirm Administered Dose 1.5 mg .ROUTE .ST-MED ONE Stop: 08/18/17 13:49 Tranexamic Acid (Cyklokapron) 2,000 mg IV ONETIME ONE Stop: 08/18/17 10:01 Last Admin: 08/18/17 18:40 Dose: Not Given Tranexamic Acid (Cyklokapron) Confirm Administered Dose 2,000 mg .ROUTE .ST- MED ONE Stop: 08/18/17 07:24 *Q Meaningful Use (DIS) - VTE *Q VTE Criteria *Q: - Stroke *Q Stroke Criteria *Q: - AMI *Q AMI Criteria *Q:
[2017-08-20 11:24] VITALS: BP 109/53
== END 2017-08-20 11:55 | disposition home or self-care (01) | DRG 301 ==
LOC: MW.MS 10:47
PROVIDERS: ADMIT Orthopaedic Surgery; ATTEND Orthopaedic Surgery
PROC: 0SRB0JA Replacement of Left Hip Joint with Synthetic Substitute, Uncemented, Open Approach (ICD-10-PCS; principal; 2017-08-18)
DX: M16.12 Unilateral primary osteoarthritis, left hip (principal); E11.9 Type 2 diabetes mellitus without complications; E66.9 Obesity, unspecified; G89.18 Other acute postprocedural pain; Z68.35 Body mass index [BMI] 35.0-35.9, adult; Z79.899 Other long term (current) drug therapy; Z88.8 Allergy status to other drugs, medicaments and biological substances; Z79.82 Long term (current) use of aspirin; F41.9 Anxiety disorder, unspecified; E78.00 Pure hypercholesterolemia, unspecified
CPT/HCPCS: 01214; 36415; 51703; 76000; 76000-26; 80048; 81025; 82962; 85014; 85018; 88304; 88311; 97110-GP; 97161-GP; 97530-GP; A9270-GY; C1776; J0690; J1170; J1815-GY; J1885; J2250; J2274; J2405; J2704; J3010; J7120

== ENCOUNTER 2017-08-21 21:20 | Emergency (ER) | payer BC ==
--- NOTE | 2017-08-21 22:02 | EDM.PDOC ---
<Karely Fuller - Last Filed: 08/21/17 23:11> ED HPI GENERAL MEDICAL PROBLEM - General Chief Complaint: Lower Extremity Injury/Pain Stated Complaint: HIP PAIN Time Seen by Provider: 08/21/17 21:48 - History of Present Illness INITIAL COMMENTS - FREE TEXT/NARRATIVE: This is Dr. Fuller dictating an addendum note is I've assumed care of this case at 10 PM. Patient and at bedside are aware of x-ray results and I will give her 1 dose of Dilaudid and discharge home. - Related Data Allergies Allergy/AdvReac Type Severity Reaction Status Date / Time hydrocodone Allergy Hives Verified 08/16/17 12:10 morphine Allergy Hives Verified 08/21/17 21:36 lobster Allergy Severe Anaphylactic Uncoded 07/27/17 18:02 Shock Home Meds: Home Meds Simvastatin [Zocor] 20 mg PO BEDTIME 03/10/17 [History] Cyclobenzaprine [Flexeril] 10 mg PO BEDTIME 06/06/17 [History] ALPRAZolam [Xanax] 1 tab PO Q6HR PRN 07/27/17 [History] oxyCODONE HCl/Acetaminophen [Oxycodon-Acetaminophen 7.5-300] 1 - 2 tab PO ASDIRECTED PRN 07/27/17 [History] metFORMIN HCl [Metformin HCl ER] 1,500 mg PO BEDTIME 08/16/17 [History] Aspirin [Ecotrin] 325 mg PO BID #60 tab.ec 08/20/17 [Rx] Docusate Sodium [Colace] 100 mg PO BID PRN #60 capsule 08/20/17 [Rx] oxyCODONE ER [OxyCONTIN] 20 mg PO TID #40 tab.er 08/20/17 [Rx] oxyCODONE HCl/Acetaminophen [Percocet 7.5-325 mg Tablet] 1 - 2 each PO Q4H PRN # 50 tablet 08/20/17 [Rx] Course - Vital Signs Last Recorded V/S: Last Vital Signs Temp 97.5 F 08/21/17 23:55 Pulse 120 H 08/21/17 23:55 Resp 18 08/21/17 23:55 BP 134/79 08/21/17 23:55 Pulse Ox 96 08/21/17 23:55 - Orders/Labs/Meds Meds: Medications Discontinued Medications Generic Name Dose Route Start Last Admin Trade Name Nel PRN Reason Stop Dose Admin Diazepam 2 mg 08/21/17 22:03 08/21/17 22:49 Valium IV 08/21/17 22:04 2 mg ONETIME ONE Administration Hydromorphone HCl 1 mg 08/21/17 23:11 08/21/17 23:45 Dilaudid IVPUSH 08/21/17 23:12 1 mg ONETIME ONE Administration Ondansetron HCl 4 mg 08/21/17 22:55 08/21/17 22:59 Zofran IVPUSH 08/21/17 22:56 4 mg ONETIME ONE Administration Departure - Departure Time of Disposition: 23:12 Disposition: Home, Self-Care 01 Condition: Good Clinical Impression: Post-operative pain - Discharge Information Instructions: Total Hip Replacement, Care After, [id number] Referrals: Adriana Barnett PA [Primary Care Provider] - Forms: ED Department Discharge Additional Instructions: My general discharge The following information is given to patients seen in the emergency department who are being discharged to home. This information is to outline your options for follow-up care. We provide all patients seen in our emergency department with a follow-up referral. The need for follow-up, as well as the timing and circumstances, are variable depending upon the specifics of your emergency department visit. If you don't have a primary care physician on staff, we will provide you with a referral. We always advise you to contact your personal physician following an emergency department visit to inform them of the circumstance of the visit and for follow-up with them and/or the need for any referrals to a consulting specialist. The emergency department will also refer you to a specialist when appropriate. This referral assures that you have the opportunity for follow-up care with a specialist. All of these measure are taken in an effort to provide you with optimal care, which includes your follow-up. Under all circumstances we always encourage you to contact your private physician who remains a resource for coordinating your care. When calling for follow-up care, please make the office aware that this follow-up is from your recent emergency room visit. If for any reason you are refused follow-up, please contact the [facility] Emergency Department at and asked to speak to the emergency department charge nurse. [facility] Specialty Care - Orthopedic Clinic Professional Building [address] [place] [address], [address] [place] [address] 1. Please take the Valium as prescribed. Continue to take your already prescribed oxycodone and OxyContin. 2. Avoid being immobile. Ambulate briefly throughout the day with your walker to avoid muscle spasm/cramping. 3. Keep your appointment with orthopedics for 08/30/2017. Return to the ED as needed and as discussed. <Henrik Gaytan E - Last Filed: 08/30/17 12:22> ED HPI GENERAL MEDICAL PROBLEM - General Source of Information: Reports: Patient History Limitations: Reports: No Limitations - History of Present Illness INITIAL COMMENTS - FREE TEXT/NARRATIVE: HISTORY AND PHYSICAL: History of present illness: Patient is a 36-year-old female who presents to the emergency room by ambulance with complaints of left hip pain. She recently had a total left hip replacement on , 08/18/2017, by Dr. Zamora. She states that she has been up ambulating with her walker and "doing well". Today she got up from a nap and decided to take a shower when she started to experience pain to the left groin radiating into the left hip going down the incision site. Prior to that she had taken her OxyContin, which she "thought would've been kicking in by now". States the pain did not subside so she proceeded to call for an ambulance. EMS gave her Zofran and fentanyl prior to arrival. Patient states that she is still in severe pain. She denies any trauma, injury, fall. Denies any numbness or tingling to her lower extremity. States that she has been monitoring the incision site and has had no signs or symptoms of infection. No fever, chills, drainage from the surgical site. Reports that she has been voiding normally and has had no change in bowel pattern. Review of systems: As per history of present illness and below otherwise all systems reviewed and negative. Past medical history: As per history of present illness and as reviewed below otherwise noncontributory. Surgical history: As per history of present illness and as reviewed below otherwise noncontributory. Social history: No reported history of drug or alcohol abuse. Family history: As per history of present illness and as reviewed below otherwise noncontributory. Physical exam: General: Nontoxic appearing 36-year-old female. She is tearful. Alert and oriented. HEENT: Atraumatic, normocephalic, pupils reactive, negative for conjunctival pallor or scleral icterus, mucous membranes moist, throat clear, neck supple, nontender, trachea midline. Lungs: Clear to auscultation, breath sounds equal bilaterally, chest nontender. Heart: S1S2, regular, negative for clicks, rubs, or JVD. Abdomen: Soft, nondistended, nontender. Negative for masses or hepatosplenomegaly. Negative for costovertebral tenderness. Pelvis: Stable nontender. Genitourinary: Deferred. Rectal: Deferred. Extremities/Skin: Surgery to left hip (total hip replacement ), left lateral hip has a surgical incision which appears free of infection, there is no redness or soft tissue swelling noted. There is an intact dressing over the incision. Strong femoral and pedal pulses to the affected extremity. Capillary refill is less than 3 seconds. + CMS. She is weightbearing with a walker. Neurovascular unremarkable. Neuro: Awake, alert, oriented. Cranial nerves II through XII unremarkable. Cerebellum unremarkable. Motor and sensory unremarkable throughout. Exam nonfocal. Dr. Zamora was consult on this patient as he was the surgeon who performed the surgery 08/18/2017, case was discussed with him. He suggested giving her some Valium. Sera states that if her x-ray is negative that a prescription for Valium may be prescribed and to continue her already prescribed pain medicaiton. She may follow-up on the , which was her next scheduled appointment. Dr. Fuller assumed care of this patient at 2200 Diagnostics: Hip and Pelvis x-ray Therapeutics: Valium Impression: Post Operative pain Plan: 1. Please take the Valium as prescribed. Continue to take your already prescribed oxycodone and OxyContin. 2. Avoid being immobile. Ambulate briefly throughout the day with your walker to avoid muscle spasm/cramping. 3. Keep your appointment with orthopedics for 08/30/2017. Return to the ED as needed and as discussed. Definitive disposition and diagnosis as appropriate pending reevaluation and review of above. 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: Musculoskeletal History: Reports: Fracture, Other (See Below) Other Musculoskeletal History: hx of fx feet, hand, and collarbone Neurological History: Reports: None Psychiatric History: Reports: Anxiety Endocrine/Metabolic History: Reports: Diabetes, Type II, Obesity/BMI 30+ Hematologic History: Reports: None Immunologic History: Reports: None Oncologic (Cancer) History: Reports: None Dermatologic History: Reports: None - Infectious Disease History Infectious Disease History: Reports: Chicken Pox - Past Surgical History Head Surgeries/Procedures: Reports: None HEENT Surgical History: Reports: None Cardiovascular Surgical History: Reports: Other (See Below) Other Cardiovascular Surgeries/Procedures: repair of hole in heart at age 8 Respiratory Surgical History: Reports: None GI Surgical History: Reports: Cholecystectomy Female Surgical History: Reports: Section Endocrine Surgical History: Reports: None Neurological Surgical History: Reports: None Musculoskeletal Surgical History: Reports: Arthroscopic Procedure, Hip Replacement Other Musculoskeletal Surgeries/Procedures:: repair of labral tear in left hip Oncologic Surgical History: Reports: None Dermatological Surgical History: Reports: None Social & Family History - Family History Family Medical History: Noncontributory Cardiac: Reports: Other (See Below) Other Cardiac Family History: heart disease Respiratory: Reports: Asthma Endocrine/Metabolic: Reports: Diabetes, type II Hematologic: Reports: Other (See Below) Other Hematologic Family History: excessive bleeding Oncologic: Reports: Colon, Ovarian - Tobacco Use Smoking Status *Q: Current Every Day Smoker Years of Tobacco use: 20 Packs/Tins Daily: 0.5 Used Tobacco, but Quit: No Second Hand Smoke Exposure: No - Caffeine Use Caffeine Use: Reports: Coffee Caffeine Use Comment: 2drinks/day - Recreational Drug Use Recreational Drug Use: No Drug Use in Last 12 Months: No Review of Systems - Review of Systems Review Of Systems: ROS reveals no pertinent complaints other than HPI. ED EXAM, GENERAL - Physical Exam Exam: See Below (See dictation) Course - Orders/Labs/Meds Meds: Medications Discontinued Medications Generic Name Dose Route Start Last Admin Trade Name Carlosq PRN Reason Stop Dose Admin Diazepam 2 mg 08/21/17 22:03 08/21/17 22:49 Valium IV 08/21/17 22:04 2 mg ONETIME ONE Administration Hydromorphone HCl 1 mg 08/21/17 23:11 08/21/17 23:45 Dilaudid IVPUSH 08/21/17 23:12 1 mg ONETIME ONE Administration Ondansetron HCl 4 mg 08/21/17 22:55 08/21/17 22:59 Zofran IVPUSH 08/21/17 22:56 4 mg ONETIME ONE Administration
[2017-08-21] MEDS ORDERED: Ondansetron 4 MG/2 ML SDV IVPUSH ONE (22:55)
[2017-08-21] MEDS ORDERED: HYDROmorphone 2 MG/ML Syringe IVPUSH ONE (23:11)
[2017-08-22 03:07] VITALS: BP 134/79
--- NOTE | 2017-08-22 15:06 | CR ---
EXAM DATE: 08/21/17 PATIENT'S AGE: 36 Patient: SINGH GERONIMO Facility: [place], [place] Site . Site : 1980 Study: XRay Hip Left [id number] hip/pelvis-08/21/2017 10:45:25 PM Ordering Physician: Doctor Myers Final Report: HISTORY: Increased hip pain. Recent left hip replacement. TECHNIQUE: AP pelvis and 2 views of the left hip. COMPARISON: 03/09/2017. FINDINGS: Intact left total hip replacement. No periprosthetic fracture or evidence of hardware loosening. Soft tissue gas is an expected immediate postop finding. There is no acute pelvic fracture. Pelvic calcifications are likely phleboliths. IMPRESSION: 1. Intact left total hip replacement. 2. No fracture. 3. Soft tissue gas is an expected postoperative finding. Dictated by Marcin Eng MD @ 08/21/2017 11:01:33 PM Dictated by: Marcin Eng MD @ 08/21/2017 23:01:46 (Electronic Signature) Report Signed by Proxy. [facility] CENTERReinaldo
== END 2017-08-22 00:04 | disposition home or self-care (01) ==
LOC: MW.ED 21:20
DX: G89.18 Other acute postprocedural pain (principal); M25.552 Pain in left hip; E78.00 Pure hypercholesterolemia, unspecified; E11.9 Type 2 diabetes mellitus without complications; F17.210 Nicotine dependence, cigarettes, uncomplicated; Z88.5 Allergy status to narcotic agent; Z79.82 Long term (current) use of aspirin; Z79.84 Long term (current) use of oral hypoglycemic drugs; Z79.899 Other long term (current) drug therapy; Z96.642 Presence of left artificial hip joint
CPT/HCPCS: 73502; 96374; 96375; 99284; A9270; J1170; J2405

== ENCOUNTER 2018-01-31 22:08 | Emergency (ER) | payer BC ==
[2018-01-31] MEDS ORDERED: Sodium Chloride 0.9% 1,000 ML IV ONE (22:30)
[2018-01-31] MEDS ORDERED: Activated Charcoal/Sorbitol Susp 50 GM/240 ML Tube PO ONE (22:33)
[2018-01-31 22:59] LABS: CHLORIDE,CL 105 mmol/L (98-107); SODIUM,NA 142 mmol/L (136-145)
--- NOTE | 2018-01-31 23:22 | EDM.PDOC ---
ED HPI GENERAL MEDICAL PROBLEM - General Chief Complaint: Behavioral/Psych Stated Complaint: OVERDOSE AND ALCOHOL Time Seen by Provider: 01/31/18 22:18 - History of Present Illness INITIAL COMMENTS - FREE TEXT/NARRATIVE: HISTORY AND PHYSICAL: History of present illness: 37-year-old female presenting to the emergency department with family after suspected intentional drug overdose. Patient is tearful and embarassed. States that she had been drinking this evening and has been feeling more and more depressed. She had a significant hopeless feeling and went into her bathroom taking a handful of Tylenol PM as well as her Cymbalta. Patient states that she did have a recent refill on her Cymbalta and may have taken at most possibly 60 of them as well as 60 of the Tylenol PM. She is very forthcoming. Initially was concerned that she may have taken other medications. We did look at her current medication record and verified medications that she reported. Her and son were there and immediately induced vomiting. states that there was a copious amount of blue pills that came out which he suspects was a Tylenol PM. Patient is tearful and mostly embarrassed to have swallowed the pills. She feels depressed but after becoming more sober is more embarrassed of the event and does not want to harm herself. She has been feeling more depressed secondary to stress at her job as well as her mother being diagnosed with terminal ovarian cancer. She has a history of anxiety and depression and after attending an autopsy today and then drinking this evening she felt like she just "snapped briefly". 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 She denies any problems at home and both her and son are here now at bedside and very supportive. She has never previously felt suicidal or had a plan. 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 Initial EKG showed sinus tachycardia with QTC prolongation to 500. Patient positive for opiates and ETOH at 181. Patient has had opiate prescription recently secondary to left total knee arthroplasty. She does deny that she took any opiates during her overdose and does not have pinpoint pupils. CMP- Mild hypokalemis at 3.4 and normal Mag. Secondary to prolonged QTC did give 40 KCL IV as well as 4 g Mag IV Repeat EKg at 0336 revealed sinus tach at 106 but improved QTC to normal 469. Normal K with Mag > 2.0 I did talk with Samantha in [place] that stated that they do have beds if need be but patient must be completely medically stabilized before admission. Talked with Dr. Karson Espinoza who would accept patient if we did need to transfer. Monitored patient for >6 hrs. Repeat ETOH 18. Talked at length with patient and family and feel patient is safe to go home. Attempt was more a cry for help. Patient is already set up to see psychiatrists and psychologists. She will see her primary care provider Hyun Barnett tomorrow. Suggested that Hyun repeat EKG as well as acetaminophen, electrolytes and magnesium levels. Recommend watching for prolonged QTC as well as decrease in potassium and to contain magnesium levels greater than 2. Review of systems: As per history of present illness and below otherwise all systems reviewed and negative. Past medical history: As per history of present illness and as reviewed below otherwise noncontributory. Surgical history: As per history of present illness and as reviewed below otherwise noncontributory. Social history: No reported history of drug or alcohol abuse. Family history: As per history of present illness and as reviewed below otherwise noncontributory. Physical exam: General: Well-developed well-nourished female, tearful but open and honest in conversation HEENT: Atraumatic, normocephalic, pupils reactive, negative for conjunctival pallor or scleral icterus, mucous membranes moist, throat clear, neck supple, nontender, trachea midline. Lungs: Clear to auscultation, breath sounds equal bilaterally, chest nontender. Heart: S1S2, regular, negative for clicks, rubs, or JVD. Abdomen: Soft, nondistended, nontender. Negative for masses or hepatosplenomegaly. Negative for costovertebral tenderness. Pelvis: Stable nontender. Genitourinary: Deferred. Rectal: Deferred. Extremities: Atraumatic, negative for cords or calf pain. Neurovascular unremarkable. Neuro: Awake, alert, oriented. Cranial nerves II through XII unremarkable. Cerebellum unremarkable. Motor and sensory unremarkable throughout. Exam nonfocal. Diagnostics: CBC, CMP, UA, UDS, TSH, salicylate, acetaminophen, mag, EKG, EtOH Therapeutics: 1 L normal saline, 1 mg Ativan IV 1 Impression: Severe depression with anxiety Acute alcohol intoxication resolved Drug overdose Plan: See and H and P above. - Related Data Allergies Allergy/AdvReac Type Severity Reaction Status Date / Time hydrocodone Allergy Hives Verified 01/31/18 22:24 morphine Allergy Hives Verified 01/31/18 22:24 lobster Allergy Severe Anaphylactic Uncoded 01/31/18 22:24 Shock Home Meds: Home Meds Simvastatin [Zocor] 20 mg PO BEDTIME 03/10/17 [History] Cyclobenzaprine [Flexeril] 10 mg PO BEDTIME 06/06/17 [History] ALPRAZolam [Xanax] 1 tab PO Q6HR PRN 07/27/17 [History] oxyCODONE HCl/Acetaminophen [Oxycodon-Acetaminophen 7.5-300] 1 - 2 tab PO ASDIRECTED PRN 07/27/17 [History] metFORMIN HCl [Metformin HCl ER] 1,500 mg PO BEDTIME 08/16/17 [History] Aspirin [Ecotrin] 325 mg PO BID #60 tab.ec 08/20/17 [Rx] Docusate Sodium [Colace] 100 mg PO BID PRN #60 capsule 08/20/17 [Rx] oxyCODONE ER [OxyCONTIN] 20 mg PO TID #40 tab.er 08/20/17 [Rx] oxyCODONE HCl/Acetaminophen [Percocet 7.5-325 mg Tablet] 1 - 2 each PO Q4H PRN # 50 tablet 08/20/17 [Rx] Past Medical History - Past Health History Medical/Surgical History: Denies Medical/Surgical History HEENT History: Reports: None Cardiovascular History: Reports: Congenital Septal Defect, High Cholesterol Other Cardiovascular History: hx of "hole in heart" Respiratory History: Reports: None Gastrointestinal History: Reports: None Genitourinary History: Reports: None 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: Musculoskeletal History: Reports: Fracture, Other (See Below) Other Musculoskeletal History: hx of fx feet, hand, and collarbone Neurological History: Reports: None Psychiatric History: Reports: Anxiety Endocrine/Metabolic History: Reports: Diabetes, Type II, Obesity/BMI 30+ Hematologic History: Reports: None Immunologic History: Reports: None Oncologic (Cancer) History: Reports: None Dermatologic History: Reports: None - Infectious Disease History Infectious Disease History: Reports: Chicken Pox - Past Surgical History Head Surgeries/Procedures: Reports: None HEENT Surgical History: Reports: None Cardiovascular Surgical History: Reports: Other (See Below) Other Cardiovascular Surgeries/Procedures: repair of hole in heart at age 8 Respiratory Surgical History: Reports: None GI Surgical History: Reports: Cholecystectomy Female Surgical History: Reports: Section Endocrine Surgical History: Reports: None Neurological Surgical History: Reports: None Musculoskeletal Surgical History: Reports: Arthroscopic Procedure, Hip Replacement Other Musculoskeletal Surgeries/Procedures:: repair of labral tear in left hip Oncologic Surgical History: Reports: None Dermatological Surgical History: Reports: None Social & Family History - Family History Family Medical History: Noncontributory Cardiac: Reports: Other (See Below) Other Cardiac Family History: heart disease Respiratory: Reports: Asthma Endocrine/Metabolic: Reports: Diabetes, type II Hematologic: Reports: Other (See Below) Other Hematologic Family History: excessive bleeding Oncologic: Reports: Colon, Ovarian - Tobacco Use Smoking Status *Q: Current Every Day Smoker Years of Tobacco use: 15 Packs/Tins Daily: 0.5 - Caffeine Use Caffeine Use: Reports: Coffee Caffeine Use Comment: 2drinks/day ED ROS GENERAL - Review of Systems Review Of Systems: ROS reveals no pertinent complaints other than HPI. ED EXAM, GENERAL - Physical Exam Exam: See Below Course - Vital Signs Last Recorded V/S: Last Vital Signs Temp 97 F 01/31/18 22:19 Pulse 114 H 01/31/18 23:44 Resp 18 01/31/18 23:44 BP 130/76 01/31/18 23:44 Pulse Ox 98 01/31/18 23:44 - Orders/Labs/Meds Orders: Active Orders 24 hr Category Date Time Status EKG 12 Lead [EKG Documentation Completion] [RC] STAT Care 02/01/18 03:38 Active EKG Documentation Completion [RC] STAT Care 01/31/18 22:19 Active DRUG SCREEN, URINE [URCHEM] Stat Lab 01/31/18 22:45 Ordered HCG QUALITATIVE,URINE [URCHEM] Stat Lab 01/31/18 22:45 Ordered UA W/MICROSCOPIC [URIN] Stat Lab 01/31/18 22:45 Ordered Magnesium Sulfate/Water [Magnesium Sulfate 4 GM in Med 02/01/18 01:40 Active Water 100 ML] 4 gm Premix Bag 1 bag IV ONETIME Sodium Chloride 0.9% with KCl [Normal Saline with 40 Med 02/01/18 01:45 Active mEq KCl] 1,000 ml IV ASDIRECTED Medication Orders Magnesium Sulfate 4 gm/ Premix 100 mls @ 25 mls/hr IV ONETIME ONE Stop: 02/01/18 05:39 Last Admin: 02/01/18 02:07 Dose: 25 mls/hr Potassium Chloride/Sodium Chloride (Normal Saline With 40 Meq Kcl) 1,000 mls @ 250 mls/hr IV ASDIRECTED LAURIE Last Admin: 02/01/18 02:06 Dose: 250 mls/hr Labs: Laboratory Tests 01/31/18 01/31/18 01/31/18 Range/Units 22:20 22:20 22:45 WBC 10.62 (4.0-11.0) K/uL RBC 4.15 L (4.30-5.90) M/uL Hgb 13.1 (12.0-16.0) g/dL Hct 38.1 (36.0-46.0) % MCV 91.8 (80.0-98.0) fL MCH 31.6 (27.0-32.0) pg MCHC 34.4 (31.0-37.0) g/dL RDW Std Deviation 49.0 (28.0-62.0) fl RDW Coeff of Mirlande 14 (11.0-15.0) % Plt Count 415 H (150-400) K/uL MPV 8.10 (7.40-12.00) fL Neut % (Auto) 43.1 L (48.0-80.0) % Lymph % (Auto) 47.8 H (16.0-40.0) % Beaver % (Auto) 3.7 (0.0-15.0) % Eos % (Auto) 4.9 (0.0-7.0) % Baso % (Auto) 0.5 (0.0-1.5) % Neut # (Auto) 4.6 (1.4-5.7) K/uL Lymph # (Auto) 5.1 H (0.6-2.4) K/uL Beaver # (Auto) 0.4 (0.0-0.8) K/uL Eos # (Auto) 0.5 (0.0-0.7) K/uL Baso # (Auto) 0.1 (0.0-0.1) K/uL Nucleated RBC % 0.0 /100WBC Nucleated RBCs # 0 K/uL Sodium 142 (136-145) mmol/L Potassium 3.4 L (3.5-5.1) mmol/L Chloride 105 (98-107) mmol/L Carbon Dioxide 25.4 (21.0-32.0) mmol/L BUN 5 L (7.0-18.0) mg/dL Creatinine 0.7 (0.6-1.0) mg/dL Est Cr Clr Drug Dosing 105.01 mL/min Estimated GFR (MDRD) > 60.0 ml/min Glucose 217 H (74-106) mg/dL Calcium 8.9 (8.5-10.1) mg/dL Magnesium 2.2 (1.8-2.4) mg/dL Total Bilirubin 0.1 L (0.2-1.0) mg/dL AST 25 (15-37) IU/L ALT 26 (14-63) IU/L Alkaline Phosphatase 121 H (46-116) U/L Total Protein 7.5 (6.4-8.2) g/dL Albumin 3.7 (3.4-5.0) g/dL Globulin 3.8 H (2.0-3.5) g/dL Albumin/Globulin Ratio 1.0 L (1.3-2.8) TSH 3rd Generation 1.02 (0.36-3.74) uIU/mL Urine Color YELLOW Urine Appearance CLEAR Urine pH 5.5 (5.0-8.0) Ur Specific Wood[place] 1.010 (1.001-1.035) Urine Protein NEGATIVE (NEGATIVE) mg/dL Urine Glucose (UA) 250 H (NEGATIVE) mg/dL Urine Ketones NEGATIVE (NEGATIVE) mg/dL Urine Occult Blood NEGATIVE (NEGATIVE) Urine Nitrite NEGATIVE (NEGATIVE) Urine Bilirubin NEGATIVE (NEGATIVE) Urine Urobilinogen 0.2 (<2.0) EU/dL Ur Leukocyte Esterase NEGATIVE (NEGATIVE) Urine RBC 0-1 (0-2/HPF) Urine WBC 0-1 (0-5/HPF) Ur Epithelial Cells OCCASIONAL (NONE-FEW) Urine Bacteria RARE (NEGATIVE) Urine HCG, Qual (NEGATIVE) Salicylates 5.2 (0-20) mg/dL Urine Opiates Screen (NEGATIVE) Ur Oxycodone Screen (NEGATIVE) Urine Methadone Screen (NEGATIVE) Acetaminophen 0.0 ug/mL Ur Barbiturates Screen (NEGATIVE) Ur Phencyclidine Scrn (NEGATIVE) Ur Amphetamine Screen (NEGATIVE) U Methamphetamines Scrn (NEGATIVE) U Benzodiazepines Scrn (NEGATIVE) U Cocaine Metab Screen (NEGATIVE) U Marijuana (THC) Screen (NEGATIVE) Ethyl Alcohol 181 mg/dL 01/31/18 01/31/18 02/01/18 Range/Units 22:45 22:45 03:20 WBC (4.0-11.0) K/uL RBC (4.30-5.90) M/uL Hgb (12.0-16.0) g/dL Hct (36.0-46.0) % MCV (80.0-98.0) fL MCH (27.0-32.0) pg MCHC (31.0-37.0) g/dL RDW Std Deviation (28.0-62.0) fl RDW Coeff of Mirlande (11.0-15.0) % Plt Count (150-400) K/uL MPV (7.40-12.00) fL Neut % (Auto) (48.0-80.0) % Lymph % (Auto) (16.0-40.0) % Beaver % (Auto) (0.0-15.0) % Eos % (Auto) (0.0-7.0) % Baso % (Auto) (0.0-1.5) % Neut # (Auto) (1.4-5.7) K/uL Lymph # (Auto) (0.6-2.4) K/uL Beaver # (Auto) (0.0-0.8) K/uL Eos # (Auto) (0.0-0.7) K/uL Baso # (Auto) (0.0-0.1) K/uL Nucleated RBC % /100WBC Nucleated RBCs # K/uL Sodium (136-145) mmol/L Potassium (3.5-5.1) mmol/L Chloride (98-107) mmol/L Carbon Dioxide (21.0-32.0) mmol/L BUN (7.0-18.0) mg/dL Creatinine (0.6-1.0) mg/dL Est Cr Clr Drug Dosing mL/min Estimated GFR (MDRD) ml/min Glucose (74-106) mg/dL Calcium (8.5-10.1) mg/dL Magnesium (1.8-2.4) mg/dL Total Bilirubin (0.2-1.0) mg/dL AST (15-37) IU/L ALT (14-63) IU/L Alkaline Phosphatase (46-116) U/L Total Protein (6.4-8.2) g/dL Albumin (3.4-5.0) g/dL Globulin (2.0-3.5) g/dL Albumin/Globulin Ratio (1.3-2.8) TSH 3rd Generation (0.36-3.74) uIU/mL Urine Color Urine Appearance Urine pH (5.0-8.0) Ur Specific [place] (1.001-1.035) Urine Protein (NEGATIVE) mg/dL Urine Glucose (UA) (NEGATIVE) mg/dL Urine Ketones (NEGATIVE) mg/dL Urine Occult Blood (NEGATIVE) Urine Nitrite (NEGATIVE) Urine Bilirubin (NEGATIVE) Urine Urobilinogen (<2.0) EU/dL Ur Leukocyte Esterase (NEGATIVE) Urine RBC (0-2/HPF) Urine WBC (0-5/HPF) Ur Epithelial Cells (NONE-FEW) Urine Bacteria (NEGATIVE) Urine HCG, Qual NEGATIVE (NEGATIVE) Salicylates 4.7 (0-20) mg/dL Urine Opiates Screen POSITIVE (NEGATIVE) Ur Oxycodone Screen POSITIVE (NEGATIVE) Urine Methadone Screen NEGATIVE (NEGATIVE) Acetaminophen 0.4 ug/mL Ur Barbiturates Screen NEGATIVE (NEGATIVE) Ur Phencyclidine Scrn NEGATIVE (NEGATIVE) Ur Amphetamine Screen NEGATIVE (NEGATIVE) U Methamphetamines Scrn NEGATIVE (NEGATIVE) U Benzodiazepines Scrn NEGATIVE (NEGATIVE) U Cocaine Metab Screen NEGATIVE (NEGATIVE) U Marijuana (THC) Screen NEGATIVE (NEGATIVE) Ethyl Alcohol 18 mg/dL 02/01/18 Range/Units 03:20 WBC (4.0-11.0) K/uL RBC (4.30-5.90) M/uL Hgb (12.0-16.0) g/dL Hct (36.0-46.0) % MCV (80.0-98.0) fL MCH (27.0-32.0) pg MCHC (31.0-37.0) g/dL RDW Std Deviation (28.0-62.0) fl RDW Coeff of Mirlande (11.0-15.0) % Plt Count (150-400) K/uL MPV (7.40-12.00) fL Neut % (Auto) (48.0-80.0) % Lymph % (Auto) (16.0-40.0) % Beaver % (Auto) (0.0-15.0) % Eos % (Auto) (0.0-7.0) % Baso % (Auto) (0.0-1.5) % Neut # (Auto) (1.4-5.7) K/uL Lymph # (Auto) (0.6-2.4) K/uL Beaver # (Auto) (0.0-0.8) K/uL Eos # (Auto) (0.0-0.7) K/uL Baso # (Auto) (0.0-0.1) K/uL Nucleated RBC % /100WBC Nucleated RBCs # K/uL Sodium (136-145) mmol/L Potassium 3.9 (3.5-5.1) mmol/L Chloride (98-107) mmol/L Carbon Dioxide (21.0-32.0) mmol/L BUN (7.0-18.0) mg/dL Creatinine (0.6-1.0) mg/dL Est Cr Clr Drug Dosing mL/min Estimated GFR (MDRD) ml/min Glucose (74-106) mg/dL Calcium (8.5-10.1) mg/dL Magnesium 2.0 (1.8-2.4) mg/dL Total Bilirubin (0.2-1.0) mg/dL AST (15-37) IU/L ALT (14-63) IU/L Alkaline Phosphatase (46-116) U/L Total Protein (6.4-8.2) g/dL Albumin (3.4-5.0) g/dL Globulin (2.0-3.5) g/dL Albumin/Globulin Ratio (1.3-2.8) TSH 3rd Generation (0.36-3.74) uIU/mL Urine Color Urine Appearance Urine pH (5.0-8.0) Ur Specific [place] (1.001-1.035) Urine Protein (NEGATIVE) mg/dL Urine Glucose (UA) (NEGATIVE) mg/dL Urine Ketones (NEGATIVE) mg/dL Urine Occult Blood (NEGATIVE) Urine Nitrite (NEGATIVE) Urine Bilirubin (NEGATIVE) Urine Urobilinogen (<2.0) EU/dL Ur Leukocyte Esterase (NEGATIVE) Urine RBC (0-2/HPF) Urine WBC (0-5/HPF) Ur Epithelial Cells (NONE-FEW) Urine Bacteria (NEGATIVE) Urine HCG, Qual (NEGATIVE) Salicylates (0-20) mg/dL Urine Opiates Screen (NEGATIVE) Ur Oxycodone Screen (NEGATIVE) Urine Methadone Screen (NEGATIVE) Acetaminophen ug/mL Ur Barbiturates Screen (NEGATIVE) Ur Phencyclidine Scrn (NEGATIVE) Ur Amphetamine Screen (NEGATIVE) U Methamphetamines Scrn (NEGATIVE) U Benzodiazepines Scrn (NEGATIVE) U Cocaine Metab Screen (NEGATIVE) U Marijuana (THC) Screen (NEGATIVE) Ethyl Alcohol mg/dL Meds: Medications Generic Name Dose Route Start Last Admin Trade Name Freq PRN Reason Stop Dose Admin Magnesium Sulfate 4 gm/ Premix 100 mls @ 25 mls/hr 02/01/18 01:40 02/01/18 02 :07 IV 02/01/18 05:39 25 mls/hr ONETIME ONE Administration Potassium Chloride/Sodium Chloride 1,000 mls @ 250 mls/hr 02/01/18 01:45 02:06 Normal Saline With 40 Meq Kcl IV 250 mls/hr ASDIRECTED LAURIE Administration Discontinued Medications Generic Name Dose Route Start Last Admin Trade Name Freq PRN Reason Stop Dose Admin Charcoal/Sorbitol 50 gm 01/31/18 22:33 01/31/18 23:05 Actidose With Sorbitol PO 01/31/18 22:34 240 ml NOW ONE Administration Sodium Chloride 1,000 mls @ 999 mls/hr 01/31/18 22:30 01/31/18 23:00 Normal Saline IV 01/31/18 23:30 999 mls/hr STAT ONE Administration Lorazepam 1 mg 01/31/18 23:52 02/01/18 00:15 Ativan IVPUSH 01/31/18 23:53 1 mg ONETIME ONE Administration Departure - Departure Time of Disposition: 04:38 Disposition: Home, Self-Care 01 Condition: Good Clinical Impression: Acute drug overdose Qualifiers: Encounter type: initial encounter Injury intent: undetermined intent Qualified Code(s): T50.904A - Poisoning by unspecified drugs, medicaments and biological substances, undetermined, initial encounter - Discharge Information Referrals: PCP,None [Primary Care Provider] - Forms: ED Department Discharge Additional Instructions: My general discharge The following information is given to patients seen in the emergency department who are being discharged to home. This information is to outline your options for follow-up care. We provide all patients seen in our emergency department with a follow-up referral. The need for follow-up, as well as the timing and circumstances, are variable depending upon the specifics of your emergency department visit. If you don't have a primary care physician on staff, we will provide you with a referral. We always advise you to contact your personal physician following an emergency department visit to inform them of the circumstance of the visit and for follow-up with them and/or the need for any referrals to a consulting specialist. The emergency department will also refer you to a specialist when appropriate. This referral assures that you have the opportunity for follow-up care with a specialist. All of these measure are taken in an effort to provide you with optimal care, which includes your follow-up. Under all circumstances we always encourage you to contact your private physician who remains a resource for coordinating your care. When calling for follow-up care, please make the office aware that this follow-up is from your recent emergency room visit. If for any reason you are refused follow-up, please contact the [facility] Emergency Department at and asked to speak to the emergency department charge nurse. [facility] [address] [place] [id number] 1. Call and follow up with Hyun Barnett NP tomorrow. Be sure to let them know that you were seen in the ED and physician requested follow-up LIZBETH with labs. She should check EKG for QT prolongation. Repeat acetaminophen level. Non-elevated in ED Repeat electrolytes specifically K and Mag. Try to maintain Mag > 2.0 2. Follow up with psychiatrist and psychologist. 3. Return to emergency department if any new or worsening symptoms. - My Orders Last 24 Hours: My Active Orders 01/31/18 22:19 EKG Documentation Completion [RC] STAT 01/31/18 22:45 DRUG SCREEN, URINE [URCHEM] Stat HCG QUALITATIVE,URINE [URCHEM] Stat UA W/MICROSCOPIC [URIN] Stat 02/01/18 01:40 Magnesium Sulfate/Water [Magnesium Sulfate 4 GM in Water 100 ML] 4 gm Premix Bag 1 bag IV ONETIME 02/01/18 01:45 Sodium Chloride 0.9% with KCl [Normal Saline with 40 mEq KCl] 1,000 ml IV ASDIRECTED 02/01/18 03:38 EKG 12 Lead [EKG Documentation Completion] [RC] STAT - Assessment/Plan Last 24 Hours: My Active Orders 01/31/18 22:19 EKG Documentation Completion [RC] STAT 01/31/18 22:45 DRUG SCREEN, URINE [URCHEM] Stat HCG QUALITATIVE,URINE [URCHEM] Stat UA W/MICROSCOPIC [URIN] Stat 02/01/18 01:40 Magnesium Sulfate/Water [Magnesium Sulfate 4 GM in Water 100 ML] 4 gm Premix Bag 1 bag IV ONETIME 02/01/18 01:45 Sodium Chloride 0.9% with KCl [Normal Saline with 40 mEq KCl] 1,000 ml IV ASDIRECTED 02/01/18 03:38 EKG 12 Lead [EKG Documentation Completion] [RC] STAT
[2018-01-31] MEDS ORDERED: LORazepam 2 MG/ML SDV IVPUSH ONE (23:52)
[2018-02-01] MEDS ORDERED: Magnesium Sulfate/Water 4 GM in Premix Bag 1 BAG IV ONE (01:40)
[2018-02-01] MEDS ORDERED: Sodium Chloride 0.9% with KCl 1,000 ML IV SCH (01:45)
[2018-02-01 03:55] LABS: ACETAMINOPHEN 0.4 ug/mL
[2018-02-01 04:50] VITALS: BP 129/85
== END 2018-02-01 04:58 | disposition home or self-care (01) ==
LOC: MW.ED 22:08
DX: T39.1X1A Poisoning by 4-Aminophenol derivatives, accidental (unintentional), initial encounter (principal); R11.10 Vomiting, unspecified; F41.8 Other specified anxiety disorders; F17.210 Nicotine dependence, cigarettes, uncomplicated; E11.9 Type 2 diabetes mellitus without complications; E78.00 Pure hypercholesterolemia, unspecified; Z88.5 Allergy status to narcotic agent; Z91.018 Allergy to other foods; Z79.899 Other long term (current) drug therapy
CPT/HCPCS: 36415; 80053; 80305; 81001; 81025; 83735; 84132; 84443; 85025; 93005; 96361; 96365; 96366; 96375; 99285; G0480; J2060; J3475; J3480; J7040